=== PATIENT | female | born 1950 | race Caucasian/White ===

== ENCOUNTER 2017-06-17 11:00 | Outpatient (RCR) | payer MEDICARE, OTHER, SELFPAY ==
--- NOTE | 2016-12-23 09:09 | HP.PTEVAL_ITS ---
Patient's Visit Information TIFFANY MCKEON is a 66 year old F referred to Physical Therapy by Out of Town Doctor KRYSTLE FERRERA with a diagnosis of Cervicogenic Headache, occipital neuralgia on L side. Date of Evaluation: 12/20/16 Physical Therapist: Jarrod Palafox - Visit Plan Frequency: 2x /Week Duration: 4 Weeks Plan: Start with DN to L sub occipitals, L cervical paraspinals and L temporalis. gental suboccipital release and L levator scapulea/UT. May trial US to similar areas. Progress gental cervical ROM, AROM as tolerated. - Subjective Subjective: Pt. is here today for her initial evaluation with diagnosis of cervical head aches and occipital neuralgia. She reports having increased symptoms for ~16 months. She had no mechanism of injury. She reports having multiple MRIs on here shoulder and neck. She has had xrays with no reports of injury. She finally ended up at [facility] and was diagnosed with occipital neuralgia and cervicogenic headaches. She reporta having multiple injections into suboccipital region with relief. She has had PT previously, but was focused on restoring cervical motion. She reports increased pain with sleeping, any pressue on L side of temporalis and L suboccipitals, even to the point she is sleeping siting up with R sided lean. She reports increased pain with cervical rotation and most ADLs. She reports relief in symptoms with off loading pressure. She denies changes in vision, and no migrain symptoms, but has a constant MARTIN like pain on L side of head. She is hopeful to reduce symptoms in order to get back to all recreational lifting and activies with increased tolerance. - Pain L side of occiput Pain Intensity (Out of 10): 2 Pain Intensity Range: 2, 6 - Objective POSTURE: Pt. has slight forward head position, rounded shoulders with slight elevation of her shoulders. PALPATION: Pt. has increased tenderness along L side of suboccipital muscles, L levator scapulea, slight increase in symptoms along L UT and tenderness along L temporalis muscle. NEUROLOGICAL: Pt. denies N /T in either UE. Pt. has normal sensation to light and sharp touch throughout bilateral UEs. Pt. has 2+ biceps and tricpes DTR bilaterally. Pt. was negative for upper limp tension testing. ROM: CERVICAL SPINE: flexion min/nil loss mild increase NW, ext min/mod loss mild increase NW, rotation R min/mod loss increase NW on L side, rotation L mod loss increase NW on L side, SB R min/nil loss increase NW, SB L min/nil loss increase NW. Pt. has normal shoulder ROM without increase in symptoms. MMT: Pt. has had a previous R shoulder RTC repair and has 4+/5 generally throughout her R UE strength. Pt. has 5/5 throughout L shoulder throughout without increase in symptoms. - Special Tests C/S Radiculapathy - Left Upper limb tension test: Negative C/S Radiculapathy - Right Upper limb tension test: Negative C/S Radiculapathy - Left Spurlings: Negative C/S Radiculapathy - Right Spurlings: Negative C/S Radiculapathy - Left Cervical distraction: Negative C/S Radiculapathy - Right Cervical distraction: Negative C/S Radiculapathy - Left Relief test: Negative C/S Radiculapathy - Right Relief test: Negative Sharp Justus: Negative Vertebral Artery Test: Negative Alar Ligament Test: Negative Cervical Sitting: Protrusion - Mechanical Response: No effect Cervical Sitting: Protrusion - Symptoms During Testing: No effect Cervical Sitting: Protrusion - Symptoms After Testing: No effect Cervical Sitting: Retraction - Mechanical Response: No effect Cervical Sitting: Retraction - Symptoms During Testing: Increases Cervical Sitting: Retraction - Symptoms After Testing: No worse Cervical Sitting: Retraction-Extension - Mechanical Response: No effect Cerv Sitting: Retraction-Extension - Symptoms During Testing: Increases Cerv Sitting: Retraction-Extension - Symptoms After Testing: No worse Cervical Sitting: Sidebend Right - Mechanical Response: No effect Cervical Sitting: Sidebend Right - Symptoms During Testing: No effect Cervical Sitting: Sidebend Right - Symptoms After Testing: No effect Cervical Sitting: Sidebend Left - Mechanical Response: No effect Cervical Sitting: Sidebend Left - Symptoms During Testing: No effect Cervical Sitting: Sidebend Left - Symptoms After Testing: No effect Cervical Sitting: Rotation Right - Mechanical Response: No effect Cervical Sitting: Rotation Right - Symptoms During Testing: Increases Cervical Sitting: Rotation Right - Symptoms After Testing: No worse Cervical Sitting: Rotation Left - Mechanical Response: No effect Cervical Sitting: Rotation Left - Symptoms During Testing: Increases Cervical Sitting: Rotation Left - Symptoms After Testing: No worse Cervical Sitting: Flexion - Mechanical Response: No effect Cervical Sitting: Flexion - Symptoms During Testing: Increases Cervical Sitting: Flexion - Symptoms After Testing: No worse - Goals Goal 1:: Pt. be I with HEP. Goal Time Frame: 4-6 Weeks Goal 2:: Pt. to have decreased L sided suboccipital and L temporalis symptoms to 0-1/10 pain at rest. Goal Time Frame: 4-6 Weeks Goal 3:: Pt. to have decreased L sided suboccipital and L temporalis symptoms to 0-1/10 pain with full cervical motion. Goal Time Frame: 4-6 Weeks Goal 4:: Pt. to have reduced frequency of MARTIN to 0-1 per week. Goal Time Frame: 4-6 Weeks Goal 5:: Pt. to sleep without increase in symptoms. Goal Time Frame: 4-6 Weeks Goal 6:: Pt. to get back to all recreational activities without increase in symptoms. - Rehabilitation Potential Physical Therapy Diagnosis: Cervicogenic Headache, occipital neuralgia on L side with subsequent increased L sided neck and head pain, cervico hypomobility , decreased tolerance to ADLs and recreational activities. Pt. would benefit from PT to reduce stress to Occipital nerve, increased tolerance to all ADLs, improve tolerance to cervical ROM and to decrease L sided cervical/occipital pain. Rehabilitation Potential: Good - Anticipated Interventions Patient/Client Instruction: Educate patient on: Condition, Plan of Care, Risk Factors, Benefits of Fitness Program For the Purpose of:: To improve safety, To improve health and function, To foster healthy habits, To improve decision making, To facilitate caregiver knowledge, To improve self management, To prevent re-injury, To improve ability to perform tasks related to life management, To improve tolerance to ADL's Therapeutic Exercise to Include: Strength training, Power training, Postural training, Flexibilty training, Active ROM, Maricel Exercises, Scapular Strength /Stabilization For the Purpose of:: To decrease pain, To decrease swelling/inflammation, To increase ROM, To improve nutrient delivery to tissue, To increase oxygenation perfusion, To improve muscle performance and motor function, To improve health of tissue, To decrease soft tissue restriction, To increase flexibility/ROM Manual Therapy Techniques to Include: Mobilization, Passive ROM, Functional dry needling, Soft tissue mobilization For the Purpose of:: To decrease pain, To decrease swelling/inflammation, To increase ROM, To improve nutrient delivery to tissue, To increase oxygenation perfusion, To improve muscle performance and motor function Thermo therapy (hot pack): Yes Ultrasound (thermal/non thermal): Yes For the Purpose of:: To decrease pain, To decrease swelling/inflammation, To increase ROM Thank you for the opportunity to evaluate your patient. For Medicare and Medicare HMO plans, please review the plan of care and approve it. It will need to be FAXED BACK to us at [phone] for Medicare purposes. Please let me know if there are questions or concerns regarding this plan of care. Physician Signature: Date:
--- NOTE | 2017-01-14 15:26 | HP.PTREVAL_ITS ---
Out of Town Doctor, KRYSTLE FERRERA It has been my pleasure to treat TIFFANY MCKEON over the last 8 visits for Cervicogenic Headache, occipital neuralgia on L side. Please see the progress note below for an update on the physical therapy plan of care! Subjective: Pt. reports I am doing okay, but I tweeked my back the other day and it has been giving me some trouble. She reports overall reduced symptoms with her neck, but has regressed a bit after having her low back pain. Objective/Function: ROM- CERVICAL SPINE- flexion min/nil loss, ext min loss ( mild increase NW), Rotation R min loss NE, rotation L min loss mild increase NW. Pt. reports having no pain when waking up in mornings, but has increased symptoms throughout the day. She reports having constant progress and is pleased with progress with PT. Pt. reports now is only having pain at L suboccipital and lateral to occiput. Plan Plan: POC extended x2 for 3-4 weeks to continue to progress with DN, stretching and manual techniques with progresson to postural strengthening as tolerated. She progressing with DN, stretching and manual technqiues, but still has symptoms. Pt. has improved ROM and deccreased pain. Will continue with PT and progressing as tolerated. Goals Goal 1:: Pt. be I with HEP. (pt. is currenlty progress with HEP). Goal Time Frame: 4-6 Weeks Goal Progress: Progressing Goal 2:: Pt. to have decreased L sided suboccipital and L temporalis symptoms to 0-1/10 pain at rest. (pt. reports having 2/10 pain in L side of occpitals this date) Goal Time Frame: 4-6 Weeks Goal Progress: Progressing Goal 3:: Pt. to have decreased L sided suboccipital and L temporalis symptoms to 0-1/10 pain with full cervical motion. (ROM- CERVICAL SPINE- flexion min/nil loss, ext min loss (mild increase NW), Rotation R min loss NE, rotation L min loss mild increase NW.) Goal Time Frame: 4-6 Weeks Goal Progress: Progressing Goal 4:: Pt. to have reduced frequency of MARTIN to 0-1 per week. (pt. reports having 2-3 HAs per week). Goal Time Frame: 4-6 Weeks Goal Progress: Progressing Goal 5:: Pt. to sleep without increase in symptoms. (pt. reports overall reduced pain with sleeping, but cont. to have increased pain that progresses throughout the day.) Goal Time Frame: 4-6 Weeks Goal Progress: Progressing Goal 6:: Pt. to get back to all recreational activities without increase in symptoms. (Pt. reports mild overall decreased pain, but does have limitations and increased symptoms with recreational actvities). Goal Progress: Progressing Anticipated Interventions Patient/Client Instruction: Educate patient on: Condition, Plan of Care, Risk Factors, Benefits of Fitness Program For the Purpose of:: To improve safety, To improve health and function, To foster healthy habits, To improve decision making, To facilitate caregiver knowledge, To improve self management, To prevent re-injury, To improve ability to perform tasks related to life management, To improve tolerance to ADL's Therapeutic Exercise to Include: Strength training, Power training, Postural training, Flexibilty training, Active ROM, Maricel Exercises, Scapular Strength /Stabilization For the Purpose of:: To decrease pain, To decrease swelling/inflammation, To increase ROM, To improve nutrient delivery to tissue, To increase oxygenation perfusion, To improve muscle performance and motor function, To improve health of tissue, To decrease soft tissue restriction, To increase flexibility/ROM Manual Therapy Techniques to Include: Mobilization, Passive ROM, Functional dry needling, Soft tissue mobilization For the Purpose of:: To decrease pain, To decrease swelling/inflammation, To increase ROM, To improve nutrient delivery to tissue, To increase oxygenation perfusion, To improve muscle performance and motor function Thermo therapy (hot pack): Yes Ultrasound (thermal/non thermal): Yes For the Purpose of:: To decrease pain, To decrease swelling/inflammation, To increase ROM Please do not hesitate to contact me at [phone] by phone or Fax: if you have questions or concerns regarding this new plan of care! Sincerely, Jarrod Palafox
--- NOTE | 2017-02-04 11:38 | HP.PTDS(2)_ITS ---
HP - PT D/C Summary (2) It has been my pleasure to treat TIFFANY MCKEON under orders from Out of Town Doctor, KRYSTLE FERRERA for the diagnosis of R sided sciatica for a total of 5 visit(s). Discharge Date: 02/04/17 Please see the following information for a summary of their discharge status. - Subjective Subjective: Pt. reports my back is all better. She reports being 100% better and is no longer having any pain in her low back. She is back to her gym workout without issues. - Overall Improvement % Improvement: 100 - Objective Objective/Function/Assessment: ROM- Pt. has full ROM of lumbar spine without increase in symptoms. MMT- Pt. has fair- core strength. RLE- 5/5 throughout, except 4+/5 hip abd and flexion. LLE-- 5/5 throughout, except 4+/5 hip flexion and abduction. Pt. has no pain with gait or stair negotiation. - Goals Patient Goals: Improve Mobility, Improve Function, Walk Normal, Improve ROM, Sleep Normal Goal 1:: Pt. to be I with HEP. (pt. is currently independent with HEP for gym/ core exercises) Goal Progress: Goal Met Goal 2:: Pt. to have decreased symptoms to 0/10 at rest. (pt. reports having 0/ 10 pain at rest). Goal Progress: Goal Met Goal 3:: Pt. to have 0/10 pain with all walking and recreational activities. ( pt. reports having 0/10 pain with all walking and gym recreational activities). Goal Progress: Goal Met Goal 4:: Pt. to have increased BLE and core strength by 1/2 grade to reduce stress applied to lumbar spine with all functional mobility. (MMT- Pt. has fair - core strength. RLE- 5/5 throughout, except 4+/5 hip abd and flexion. LLE-- 5/ 5 throughout, except 4+/5 hip flexion and abduction.) Goal Progress: Goal Met Goal 5:: Pt. to have full lumbar ROM without increase in symptoms. (ROM- Pt. has full ROM of lumbar spine without increase in symptoms.) Goal Progress: Goal Met Goal 6:: Pt. to complete all recreational activities and ADLs without increase in lumbar spine. (pt. is able to complete all her recreational activities and ADLS with symptoms). Goal Progress: Goal Met - Plan Plan: Pt. will be DC from PT to gym exercises for core strengthening at this point in time. - D/C Information Discharge Comments: Pt. progressed with core strengthening exercises and initial modalities to reduce her symptoms. She is back to all gym core strengthening and recreational activities without issues. She reports being 100 % better overall and will be DC from PT to her current exercise program. If there are questions or concerns regarding this patient's physical therapy, please feel free to call me at [phone]. Thank you for the referral of this patient. Sincerely, Jarrod Palafox
--- NOTE | 2017-02-13 12:30 | HP.PTREVAL_ITS ---
Out of [facility] Doctor, KRYSTLE FERRERA It has been my pleasure to treat TIFFANY MCKEON over the last 16 visits for Cervicogenic Headache, occipital neuralgia on L side. Please see the progress note below for an update on the physical therapy plan of care! Subjective: Pt. reports I was pretty sore this weekend. I am not as bad as I was, but was more sore than previously. Pt. reports being 75% better overall. Pt. reports being HEP compliant. Objective/Function: CERVICAL ROM- flexion nil loss NE, ext min loss NE, rotation R min/nil los NE, rotation L min/mod loss increase NW on L side. Pt. is no longer having pain on the L side of her occipital region, has mild pain at L side of cervical spine and UT. Pt. is progressing with ROM, DN and strengthening. Plan Plan: Pt. has had overall reduction in occipital pain, but is having lingering pain throughout the L side of her cervical spine and into her L UT region. He has close to prior level of cervical ROM, except is limited with rotation to her L, but has also improved. Pt. would like to continue weaning from DN with use of traction and restoring her cervical ROM. POC extended x1-2 per week for 2 weeks, weaning to x1 per week for another 2 weeks. Goals Goal 1:: Pt. be I with HEP. (pt. is currenlty progress with HEP). Goal Time Frame: 4-6 Weeks Goal Progress: Progressing Goal 2:: Pt. to have decreased L sided suboccipital and L temporalis symptoms to 0-1/10 pain at rest. (pt. reports having 2/10 pain in L side cervical spine) Goal Time Frame: 4-6 Weeks Goal Progress: Progressing Goal 3:: Pt. to have decreased L sided suboccipital and L temporalis symptoms to 0-1/10 pain with full cervical motion. (ROM- CERVICAL SPINE- flexion nil loss NE, ext min loss NE, rotation R min/nil los NE, rotation L min/mod loss increase NW on L side.) Goal Time Frame: 4-6 Weeks Goal Progress: Progressing Goal 4:: Pt. to have reduced frequency of MARTIN to 0-1 per week. (pt. reports having 1-2 HAs per week). Goal Time Frame: 4-6 Weeks Goal Progress: Progressing Goal 5:: Pt. to sleep without increase in symptoms. (Pt. reports she is no longer having pain with sleeping) Goal Time Frame: 4-6 Weeks Goal Progress: Goal Met Goal 6:: Pt. to get back to all recreational activities without increase in symptoms. (Pt. reports mild overall decreased pain, but does have limitations and increased symptoms with recreational actvities). Goal Progress: Progressing Anticipated Interventions Patient/Client Instruction: Educate patient on: Condition, Plan of Care, Risk Factors, Benefits of Fitness Program For the Purpose of:: To improve safety, To improve health and function, To foster healthy habits, To improve decision making, To facilitate caregiver knowledge, To improve self management, To prevent re-injury, To improve ability to perform tasks related to life management, To improve tolerance to ADL's Therapeutic Exercise to Include: Strength training, Power training, Postural training, Flexibilty training, Active ROM, Maricel Exercises, Scapular Strength /Stabilization For the Purpose of:: To decrease pain, To decrease swelling/inflammation, To increase ROM, To improve nutrient delivery to tissue, To increase oxygenation perfusion, To improve muscle performance and motor function, To improve health of tissue, To decrease soft tissue restriction, To increase flexibility/ROM Manual Therapy Techniques to Include: Mobilization, Passive ROM, Functional dry needling, Soft tissue mobilization For the Purpose of:: To decrease pain, To decrease swelling/inflammation, To increase ROM, To improve nutrient delivery to tissue, To increase oxygenation perfusion, To improve muscle performance and motor function Thermo therapy (hot pack): Yes Ultrasound (thermal/non thermal): Yes For the Purpose of:: To decrease pain, To decrease swelling/inflammation, To increase ROM Please do not hesitate to contact me at [phone] by phone or Fax: if you have questions or concerns regarding this new plan of care! Sincerely, Jarrod Palafox
--- NOTE | 2017-03-07 09:50 | HP.PTREVAL_ITS ---
Out of Town Doctor, KRYSTLE FERRERA It has been my pleasure to treat TIFFANY MCKEON over the last 22 visits for Cervicogenic Headache, occipital neuralgia on L side. Please see the progress note below for an update on the physical therapy plan of care! Subjective: Pt. reports I am getting better, I am able to do a lot more, but I am still getting pain with rotation to the left side. He reports being HEP compliant without adverse reaction. Pt. reports being 85% better overall, If I could just get more rotation in my neck I woule be great. Objective/Function: Pt. is no longer having any pain in the L side of her suboccipital region, but has increased pulling pain with cervical rotation to the L. ROM-CERVICAL SPINE- flexion nil loss NE, ext min loss NE, rotation R min /nil los NE, rotation L min loss increase NW on L side. Slight improvement with rotation to L side. Adding in joint mobs to assist with rotation. Plan Plan: POC extended x1-2 per week for 2-3 weeks with focus on increased lower cervical joint mobility and decreasing symptoms with cervical mobility ( espcially with rotation to L side). Goals Goal 1:: Pt. be I with HEP. (pt. is currenlty progress with HEP). Goal Time Frame: 4-6 Weeks Goal Progress: Progressing Goal 2:: Pt. to have decreased L sided suboccipital and L temporalis symptoms to 0-1/10 pain at rest. (pt. reports having 2/10 pain in L side cervical spine with cervical rotation to L side, no longer having pain at sub occipital region) Goal Time Frame: 4-6 Weeks Goal Progress: Progressing Goal 3:: Pt. to have decreased L sided suboccipital and L temporalis symptoms to 0-1/10 pain with full cervical motion. (ROM- CERVICAL SPINE- flexion nil loss NE, ext min loss NE, rotation R min/nil los NE, rotation L min loss increase NW on L side.) Goal Time Frame: 4-6 Weeks Goal Progress: Progressing Goal 4:: Pt. to have reduced frequency of MARTIN to 0-1 per week. (pt. reports having 1 HAs per week). Goal Time Frame: 4-6 Weeks Goal Progress: Goal Met Goal 5:: Pt. to sleep without increase in symptoms. (Pt. reports she is no longer having pain with sleeping) Goal Time Frame: 4-6 Weeks Goal Progress: Goal Met Goal 6:: Pt. to get back to all recreational activities without increase in symptoms. (Pt. reports mild overall decreased pain, but does have limitations and increased symptoms with recreational actvities). Goal Progress: Progressing Anticipated Interventions Patient/Client Instruction: Educate patient on: Condition, Plan of Care, Risk Factors, Benefits of Fitness Program For the Purpose of:: To improve safety, To improve health and function, To foster healthy habits, To improve decision making, To facilitate caregiver knowledge, To improve self management, To prevent re-injury, To improve ability to perform tasks related to life management, To improve tolerance to ADL's Therapeutic Exercise to Include: Strength training, Power training, Postural training, Flexibilty training, Active ROM, Maricel Exercises, Scapular Strength /Stabilization For the Purpose of:: To decrease pain, To decrease swelling/inflammation, To increase ROM, To improve nutrient delivery to tissue, To increase oxygenation perfusion, To improve muscle performance and motor function, To improve health of tissue, To decrease soft tissue restriction, To increase flexibility/ROM Manual Therapy Techniques to Include: Mobilization, Passive ROM, Functional dry needling, Soft tissue mobilization For the Purpose of:: To decrease pain, To decrease swelling/inflammation, To increase ROM, To improve nutrient delivery to tissue, To increase oxygenation perfusion, To improve muscle performance and motor function Thermo therapy (hot pack): Yes Ultrasound (thermal/non thermal): Yes For the Purpose of:: To decrease pain, To decrease swelling/inflammation, To increase ROM Please do not hesitate to contact me at [phone] by phone or Fax: if you have questions or concerns regarding this new plan of care! Sincerely, Jarrod Palafox
--- NOTE | 2017-04-10 11:38 | HP.PTREVAL ---
Out of [facility] Doctor, KRYSTLE FERRERA It has been my pleasure to treat TIFFANY MCKEON over the last 29 visits for Cervicogenic Headache, occipital neuralgia on L side. Please see the progress note below for an update on the physical therapy plan of care! 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 Pt. reports having no issues after first day, but increased symptoms after second then reports greater soreness today. Objective/Function: Reduced symptoms post PT this date. Pt. to come back next week to determine if symptoms calm down after slowing work week this week. Pt. consents. Plan Plan: POC extended x1-2 per week for 2-3 weeks with focus on increased lower cervical joint mobility and decreasing symptoms with cervical mobility (espcially with rotation to L side). Goals Goal 1:: Pt. be I with HEP. (pt. is deidrey progress with HEP). Goal Time Frame: 4-6 Weeks Goal Progress: Progressing Goal 2:: Pt. to have decreased L sided suboccipital and L temporalis symptoms to 0-1/10 pain at rest. (pt. reports having 2/10 pain in L side cervical spine with cervical rotation to L side, no longer having pain at sub occipital region) Goal Time Frame: 4-6 Weeks Goal Progress: Progressing Goal 3:: Pt. to have decreased L sided suboccipital and L temporalis symptoms to 0-1/10 pain with full cervical motion. (ROM- CERVICAL SPINE- flexion nil loss NE, ext min loss NE, rotation R min/nil los NE, rotation L min loss increase NW on L side.) Goal Time Frame: 4-6 Weeks Goal Progress: Progressing Goal 4:: Pt. to have reduced frequency of MARTIN to 0-1 per week. (pt. reports having 1 HAs per week). Goal Time Frame: 4-6 Weeks Goal Progress: Goal Met Goal 5:: Pt. to sleep without increase in symptoms. (Pt. reports she is no longer having pain with sleeping) Goal Time Frame: 4-6 Weeks Goal Progress: Goal Met Goal 6:: Pt. to get back to all recreational activities without increase in symptoms. (Pt. reports mild overall decreased pain, but does have limitations and increased symptoms with recreational actvities). Goal Progress: Progressing Anticipated Interventions Patient/Client Instruction: Educate patient on: Condition, Plan of Care, Risk Factors, Benefits of Fitness Program For the Purpose of:: To improve safety, To improve health and function, To foster healthy habits, To improve decision making, To facilitate caregiver knowledge, To improve self management, To prevent re-injury, To improve ability to perform tasks related to life management, To improve tolerance to ADL's Therapeutic Exercise to Include: Strength training, Power training, Postural training, Flexibilty training, Active ROM, Maricel Exercises, Scapular Strength/Stabilization For the Purpose of:: To decrease pain, To decrease swelling/inflammation, To increase ROM, To improve nutrient delivery to tissue, To increase oxygenation perfusion, To improve muscle performance and motor function, To improve health of tissue, To decrease soft tissue restriction, To increase flexibility/ROM Manual Therapy Techniques to Include: Mobilization, Passive ROM, Functional dry needling, Soft tissue mobilization For the Purpose of:: To decrease pain, To decrease swelling/inflammation, To increase ROM, To improve nutrient delivery to tissue, To increase oxygenation perfusion, To improve muscle performance and motor function Thermo therapy (hot pack): Yes Ultrasound (thermal/non thermal): Yes For the Purpose of:: To decrease pain, To decrease swelling/inflammation, To increase ROM Please do not hesitate to contact me at [phone] by phone or if you have questions or concerns regarding this new plan of care! Sincerely, Jarrod Palafox
--- NOTE | 2017-05-30 12:58 | HP.PTREVAL ---
Out of [facility] Doctor, KRYSTLE FERRERA It has been my pleasure to treat TIFFANY MCKEON over the last 34 visits for Cervicogenic Headache, occipital neuralgia on L side. Please see the progress note below for an update on the physical therapy plan of care! Subjective: Pt. reports I was on prednisone again and was feeling great. I still have that pain at the base of my skull, but only when I turn my head. She is to follow up with physician on Saturday 06/02. Pt. is pleased with progress, but want to follow up after seeing physician. Objective/Function: Pt. continues to have made gains with PT. She does have slight min/mod limitation with cervical rotation to L side with increased pain. Pt. has overall decreased symptoms and is tolerating most ADLs and gym exercises. Pt. to follow up with physician early next week. Plan Plan: POC extended x1-2 per week for 2-3 weeks with focus on increased lower cervical joint mobility and decreasing symptoms with cervical mobility (espcially with rotation to L side). Goals Goal 1:: Pt. be I with HEP. (pt. is currenlty progress with HEP). Goal Time Frame: 4-6 Weeks Goal Progress: Progressing Goal 2:: Pt. to have decreased L sided suboccipital and L temporalis symptoms to 0-1/10 pain at rest. (pt. reports having 2/10 pain in L side cervical spine with cervical rotation to L side, no longer having pain at sub occipital region) Goal Time Frame: 4-6 Weeks Goal Progress: Progressing Goal 3:: Pt. to have decreased L sided suboccipital and L temporalis symptoms to 0-1/10 pain with full cervical motion. (ROM- CERVICAL SPINE- flexion nil loss NE, ext min loss NE, rotation R min/nil los NE, rotation L min loss increase NW on L side.) Goal Time Frame: 4-6 Weeks Goal Progress: Progressing Goal 4:: Pt. to have reduced frequency of MARTIN to 0-1 per week. (pt. reports having 1 HAs per week). Goal Time Frame: 4-6 Weeks Goal Progress: Goal Met Goal 5:: Pt. to sleep without increase in symptoms. (Pt. reports she is no longer having pain with sleeping) Goal Time Frame: 4-6 Weeks Goal Progress: Goal Met Goal 6:: Pt. to get back to all recreational activities without increase in symptoms. (Pt. reports mild overall decreased pain, but does have limitations and increased symptoms with recreational actvities). Goal Progress: Progressing Anticipated Interventions Patient/Client Instruction: Educate patient on: Condition, Plan of Care, Risk Factors, Benefits of Fitness Program For the Purpose of:: To improve safety, To improve health and function, To foster healthy habits, To improve decision making, To facilitate caregiver knowledge, To improve self management, To prevent re-injury, To improve ability to perform tasks related to life management, To improve tolerance to ADL's Therapeutic Exercise to Include: Strength training, Power training, Postural training, Flexibilty training, Active ROM, Maricel Exercises, Scapular Strength/Stabilization For the Purpose of:: To decrease pain, To decrease swelling/inflammation, To increase ROM, To improve nutrient delivery to tissue, To increase oxygenation perfusion, To improve muscle performance and motor function, To improve health of tissue, To decrease soft tissue restriction, To increase flexibility/ROM Manual Therapy Techniques to Include: Mobilization, Passive ROM, Functional dry needling, Soft tissue mobilization For the Purpose of:: To decrease pain, To decrease swelling/inflammation, To increase ROM, To improve nutrient delivery to tissue, To increase oxygenation perfusion, To improve muscle performance and motor function Thermo therapy (hot pack): Yes Ultrasound (thermal/non thermal): Yes For the Purpose of:: To decrease pain, To decrease swelling/inflammation, To increase ROM Please do not hesitate to contact me at [phone] by phone or if you have questions or concerns regarding this new plan of care! Sincerely, Jarrod Palafox
== END 2017-06-17 11:30 | disposition home or self-care (01) ==
LOC: PT 11:00
DX: M54.31 Sciatica, right side (principal); M54.81 Occipital neuralgia; M53.0 Cervicocranial syndrome
CPT/HCPCS: 97012; 97035; 97110; 97140; 97161; 97530; G8978; G8979; G8980; G8981; G8982

== ENCOUNTER 2018-02-10 08:30 | Outpatient (RCR) | payer MEDICARE, OTHER, SELFPAY ==
--- NOTE | 2017-12-16 08:01 | HP.PTREVAL_ITS ---
DUY CARCAMO, It has been my pleasure to treat TIFFANY MCKEON over the last 58 visits for occipital neuralgia. Please see the progress note below for an update on the physical therapy plan of care! Subjective: Pt. reports I was sore after the massage I got. Pt. reports seeing her physician who wants her to continue to reduce her muscle tension. Pt. did get injections again with better results. Objective/Function: Pt. tolerated all Pt without adverse reaction. Pt. did receive another scrip from her physician to continue with PT and focus on decreasing her L sided muscle tone with modalities including DN as needed. She continues to have decreased rotation to L side. Pt. is progressing, but slowly. Plan Plan: POC extended for 4 more visits x1 per week to reduce symptoms. Goals Goal 1:: Pt. to have decreased L sided suboccipital and L temporalis symptoms to 0-1/10 pain at rest. Goal Time Frame: 2-4 Weeks Goal Progress: Progressing Goal 2:: Pt. to have decreased L sided suboccipital and L temporalis symptoms to 0-1/10 pain with full cervical motion. Goal Time Frame: 2-4 Weeks Goal Progress: Progressing Goal 3:: Pt. to get back to all recreational activities without increase in symptoms. Goal Time Frame: 2-4 Weeks Goal Progress: Goal Met Anticipated Interventions Please do not hesitate to contact me at [phone] by phone or Fax: if you have questions or concerns regarding this new plan of care! Sincerely, Jarrod Palafox
== END 2018-02-10 19:00 | disposition home or self-care (01) ==
LOC: PT 08:30
DX: M53.0 Cervicocranial syndrome (principal); M54.81 Occipital neuralgia; R51 Headache
CPT/HCPCS: 97110; 97140

== ENCOUNTER 2018-06-10 12:00 | Outpatient (RCR) | payer MEDICARE, OTHER, SELFPAY | END 2018-06-10 19:00 | disposition home or self-care (01) | LOC: PT 12:00 | DX: M54.81 Occipital neuralgia (principal); R51 Headache; M53.0 Cervicocranial syndrome ==

== ENCOUNTER 2018-11-17 10:00 | Outpatient (RCR) | payer MEDICARE, OTHER, SELFPAY ==
--- NOTE | 2018-09-14 14:48 | HP.PTREVAL_ITS ---
Francisco Golden PA-C, It has been my pleasure to treat TIFFANY MCKEON over the last 10 visits for L knee OA. Please see the progress note below for an update on the physical therapy plan of care! Subjective: Pt. continues to progress. She reports being 85% better overall. Pt. reports being HEP compliant. Objective/Function: Pt. has full knee ext ROM on L side. Pt. has 122 deg of flexion with stiffness being her limiting factor. Pt. reports she is back to some gym exericses, but not fully. She is walking with minimal issues. She denies N/T. MMT: LLE- ankle 5/5 throughout; knee- ext 4+/5, flexion 5-/5; hip- flexion 4+/5, abd 4+/5m ext 4+/5. Core strength fair. GAIT: pt. has improved pattern, but does have decreased kne flexiono during swing phase. Pt. reports no pain with ambulation, unless I take a bad step. Pt. does have some mild increase in soreness with descending steps. Plan Plan: Cont. wtih POC fopr 2 more visits progressing to HEP. Goals Goal 1:: Pt. to be I with HEP. Goal Time Frame: 4-6 Weeks Goal Progress: Progressing Goal 2:: Pt. to have increased L knee ROM to 0-0-120deg without increase in symptoms. Goal Time Frame: 4-6 Weeks Goal Progress: Goal Met Goal 3:: Pt. to have incrased L knee strength by 1/2 grade of all effected musculature. Goal Time Frame: 4-6 Weeks Goal Progress: Progressing Goal 4:: Pt. to ambulate without increase in symptoms with normal gait pattern. Goal Time Frame: 4-6 Weeks Goal Progress: Progressing Goal 5:: Pt. to negotiate steps with reciprocal pattern with 1 HR withotu increase in symptoms. Goal Time Frame: 4-6 Weeks Goal Progress: Progressing Goal 6:: Pt. to resume all gym exercises without increase in symptoms. Goal Progress: Progressing Anticipated Interventions Patient/Client Instruction: Educate patient on: Condition, Plan of Care, Risk Factors, Benefits of Fitness Program For the Purpose of:: To improve health and function, To foster healthy habits, To facilitate caregiver knowledge, To improve self management, To prevent re- injury, To improve ability to perform tasks related to life management, To improve tolerance to ADL's Therapeutic Exercise to Include: Strength training, Power training, Endurance training, Balance training, Postural training, Flexibilty training, Gait and locomotor training, Passive ROM, Active ROM, Dynamic Lumbar Stabilization For the Purpose of:: To decrease pain, To decrease swelling/inflammation, To increase ROM, To improve nutrient delivery to tissue, To increase oxygenation perfusion, To improve performance and independence with ADL's, To decrease level of supervision to perform tasks, To improve ability of physical actions for home/community/work/leisure, To improve gait and locomotor functions Please do not hesitate to contact me at [phone] by phone or if you have questions or concerns regarding this new plan of care! Sincerely, Jarrod Palafox DPT
--- NOTE | 2018-09-14 14:48 | HP.PTEVAL_ITS ---
Patient's Visit Information TIFFANY MCKEON is a 67 year old F referred to Physical Therapy by Francisco Golden PA-C with a diagnosis of L knee OA. Date of Evaluation: 06/10/18 Physical Therapist: Jarrod Palafox DPT - Visit Plan Frequency: 2x /Week Duration: 4-6 Weeks Plan: Cont. wtih POC fopr 2 more visits progressing to HEP. - Subjective Findings: Pt. is here today for her initial evaluation with diagnosis of L knee OA. Pt. reports hurting her knee after at neuro doctor office. Pt. reports getting up with increased pain, but no other mechanism of injury. Pt. denies N/T in either LEs. Pt. reports increased pain with attempting to straighten her leg, walking and standing. Pt. reports no pain with sitting, but does report increased stiffness. Pt. is hopeful to reduce symptoms in order to get back to all recreational activities without limitations. - Pain L knee Pain Intensity (Out of 10): 0 Pain Intensity Range: 1, 6 - Objective POSTURE: Pt. lacks TKE on L side in stnace. Pt. has incraesed R lateral lean. PALAPTION: Pt. has incrased pain at medial aspect of L knee joint line. Pt. has increased pain at posterior aspect as well. NEURO: normal throughout. ROM: R knee- 0-0-131deg. L knee 0-5-121deg. PT. has tight HS, but rest of BLEs is normal. MMT: RLE- 5/5 throughout, except 4/5 throughout hip musculature. LLE- ankle 5/5 throughout; knee- ext 4/5, flexion 4+/5; hip- 4/5 throughout. GAIT: Pt. has decreased stance time on LLE. Pt. lacks TKE on LLE during stance phase and has reduced L knee flexion during swing phase. STAIRS: no isues with ascending, decreased knee flexion and control with decending. - Goals Goal 1:: Pt. to be I with HEP. Goal Time Frame: 4-6 Weeks Goal 2:: Pt. to have increased L knee ROM to 0-0-120deg without increase in symptoms. Goal Time Frame: 4-6 Weeks Goal 3:: Pt. to have incrased L knee strength by 1/2 grade of all effected musculature. Goal Time Frame: 4-6 Weeks Goal 4:: Pt. to ambulate without increase in symptoms with normal gait pattern. Goal Time Frame: 4-6 Weeks Goal 5:: Pt. to negotiate steps with reciprocal pattern with 1 HR withotu increase in symptoms. Goal Time Frame: 4-6 Weeks Goal 6:: Pt. to resume all gym exercises without increase in symptoms. - Rehabilitation Potential Physical Therapy Diagnosis: Pt. has signs and symptoms consistent with L knee OA. Rehabilitation Potential: Good - Anticipated Interventions Patient/Client Instruction: Educate patient on: Condition, Plan of Care, Risk Factors, Benefits of Fitness Program For the Purpose of:: To improve health and function, To foster healthy habits, To facilitate caregiver knowledge, To improve self management, To prevent re- injury, To improve ability to perform tasks related to life management, To improve tolerance to ADL's Therapeutic Exercise to Include: Strength training, Power training, Endurance training, Balance training, Postural training, Flexibilty training, Gait and locomotor training, Passive ROM, Active ROM, Dynamic Lumbar Stabilization For the Purpose of:: To decrease pain, To decrease swelling/inflammation, To increase ROM, To improve nutrient delivery to tissue, To increase oxygenation perfusion, To improve performance and independence with ADL's, To decrease level of supervision to perform tasks, To improve ability of physical actions for home/community/work/leisure, To improve gait and locomotor functions Thank you for the opportunity to evaluate your patient. For Medicare and Medicare HMO plans, please review the plan of care and approve it. It will need to be FAXED BACK to us at [phone] for Medicare purposes. For Medicare only, by signing this I certify the plan of care. Please let me know if there are questions or concerns regarding this plan of care. Physician Signature: Date:
--- NOTE | 2018-09-14 14:58 | HP.PTDCSUM ---
HP - PT D/C Summary It has been my pleasure to treat TIFFANY MCKEON under orders from Francisco Golden PA-C, for the diagnosis of L knee OA for a total of 12 visit(s). Discharge Date: 07/21/18 Please see the following information for a summary of their discharge status. - Subjective Subjective: Pt. continues to progress. She reports being 85% better overall. Pt. reports being HEP compliant. - Pain L knee Pain Intensity (Out of 10): 0 - Overall Improvement % Improvement: 95 - Objective Objective/Function: Pt. has full knee ext ROM on L side. Pt. has 122 deg of flexion with stiffness being her limiting factor. Pt. reports she is back to some gym exericses, but not fully. She is walking with minimal issues. She denies N/T. MMT: LLE- ankle 5/5 throughout; knee- ext 4+/5, flexion 5-/5; hip- flexion 4+/5, abd 4+/5m ext 4+/5. Core strength fair. GAIT: pt. has improved pattern, but does have decreased kne flexiono during swing phase. Pt. reports no pain with ambulation, unless I take a bad step. Pt. does have some mild increase in soreness with descending steps. - Goals Goal 1:: Pt. to be I with HEP. Goal Progress: Progressing Goal 2:: Pt. to have increased L knee ROM to 0-0-120deg without increase in symptoms. Goal Progress: Goal Met Goal 3:: Pt. to have incrased L knee strength by 1/2 grade of all effected musculature. Goal Progress: Progressing Goal 4:: Pt. to ambulate without increase in symptoms with normal gait pattern. Goal Progress: Progressing Goal 5:: Pt. to negotiate steps with reciprocal pattern with 1 HR withotu increase in symptoms. Goal Progress: Progressing Goal 6:: Pt. to resume all gym exercises without increase in symptoms. Goal Progress: Progressing - Plan Plan: Cont. wtih POC fopr 2 more visits progressing to HEP. - D/C Information Discharge Comments: Pt. was treated for her L knee OA. Pt. was treated with ROM and strengthening exercises. Pt. made great progress with stability and LLE strengthening. Pt. is back to gym exercises without limitations. Pt. has a solid exercise program and will be DC from PT at this point in time. If there are questions or concerns regarding this patient's physical therapy, please feel free to call me at [phone]. Thank you for the referral of this patient. Sincerely, FINA RodríguezT
== END 2018-11-17 19:00 | disposition home or self-care (01) ==
LOC: PT 10:00
PROVIDERS: Visit Provider Physician Assistant
DX: M17.12 Unilateral primary osteoarthritis, left knee (principal)
CPT/HCPCS: 97110; 97161

== ENCOUNTER 2019-02-16 10:00 | Outpatient (RCR) | payer MEDICARE, OTHER, SELFPAY | END 2019-02-16 19:00 | disposition home or self-care (01) | LOC: PT 10:00 | DX: M17.12 Unilateral primary osteoarthritis, left knee (principal) ==

== ENCOUNTER 2019-08-10 10:00 | Outpatient (RCR) | payer MEDICARE, OTHER, SELFPAY | END 2019-08-10 19:00 | disposition home or self-care (01) | LOC: PT 10:00 | DX: M54.81 Occipital neuralgia (principal); M53.0 Cervicocranial syndrome | CPT/HCPCS: 97140 ==

== ENCOUNTER 2020-02-15 11:30 | Outpatient (RCR) | payer MEDICARE, OTHER, SELFPAY | END 2020-02-15 19:00 | disposition home or self-care (01) | LOC: PT 11:30 | DX: M54.81 Occipital neuralgia (principal); M53.0 Cervicocranial syndrome ==

== ENCOUNTER 2020-03-22 09:47 | Outpatient (RCR) | payer MEDICARE, OTHER, SELFPAY ==
[2020-03-21 10:27] VITALS: BMI 24.9
== END 2020-03-22 19:00 | disposition home or self-care (01) ==
LOC: PT 09:47
PROVIDERS: PCP Internal Medicine
DX: M54.81 Occipital neuralgia (principal); M53.0 Cervicocranial syndrome

== ENCOUNTER → 2020-04-03 08:40 | Outpatient (CLI) | payer MEDICARE, OTHER, SELFPAY ==
[2020-03-21 10:27] VITALS: BMI 24.9
[2020-04-03] VITALS (8 sets, daily range): BP systolic 106–143; BP diastolic 49–73; PULSE 88–97; RESP 14–24; TEMP 37.1; O2SAT 92–98; BMI 25.0
--- NOTE | 2020-04-03 | IMM_PTH ---
PATIENT: TIFFANY MCKEON LOC: CT U#:[id number] AGE/SX: 74/F ROOM: RE04/03/[address]: Dr. Rachna Ma MD : [id number] BED: DIS: SPEC #: [id number] RECD: 04/04/20 13:22 STATUS: ZOFIA REQ #: [id number] ANTOINE: 04/03/20 00:[address]: Rachna Ma DEPT: IMMUNOHISTOCHEMISTRY RECD BY: Ruby Pierre ENTERED: 04/04/20 13:24 SP TYPE: IMMUNO OTHR DR: Dr. Michelle Cummins DO Tissues: B - Bone marrow of iliac crest Procedures: BCL-2 (add) BCL-6 (add) CD10 (add) CD20 (add) CD23 (add) CD43 (add) CD45 (add) CD5 (add) CD79A (add) CYCLIN (add) KI-67 (add) CD3 (initial) PHYSICIAN & [address] [address] SPECIMEN INFORMATION: Tissue Source: B - Bone marrow biopsy, clot Clinical Info: Massive splenomegaly Specimen Number: [id number] CPT code: 98371, 46142 x11 METHODOLOGY: Deparaffinized sections of prefer/formalin-fixed tissue or PAP/DQ stained slides are incubated with monoclonal/polyclonal antibodies/oligonucleotide probes. Localization is made via biotin free immunoperoxidase method. Appropriate controls are performed and reacted as expected. Results on target cell population are indicated in the following table: RESULTS: ANTIBODY / CLONE RESULT Block B CD3 (PS1) negative CD5 (SP10) positive CD10 (56C6) negative CD20 (L26) positive CD23 (1B12) negative CD43 (L60) negative CD45 (RP2/18) positive CD79a (11E3) positive BCL-2 (bcl-2/100/D5) positive BCL-6 ([id number]/A8) negative Cyclin D1/BCL-1 (SP4) positive Ki-67 (30-9) positive, low These tests were developed and their performance characteristics determined by [facility]. They may not have been cleared or approved by the U.S. Food and Drug Administration. The FDA has determined that such clearance or approval is not necessary. The above immunohistochemical/dualISH markers are ordered and reviewed by the Pathologist. INTERPRETATION: B. 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 SJ:chetan 04/05/20 Case has been reviewed in consultation with Dr. Valdovinos who concurs with the above diagnosis. IDC:AM
--- NOTE | 2020-04-03 | BMB_PTH ---
PATIENT: TIFFANY MCKEON LOC: [place] U#:[id number] AGE/SX: 74/F ROOM: RE04/03/[address]: Dr. Rahcna Ma MD : 1950 BED: DIS: SPEC #: [id number] RECD: 04/03/20 13:17 STATUS: ZOFIA REAshley #: [id number] ANTOINE: 04/03/20 00:[address]: Rachna Ma DEPT: BONE MARROW RECD BY: Franco Noyola ENTERED: 04/03/20 13:19 SP TYPE: BMB OBDULIO DR: Dr. Michelle Cummins DO Tissues: A - Bone marrow, NOS B - Bone marrow, NOS C - Bone marrow, NOS Procedures: Bone Marrow Aspiration Bone Marrow Core Biopsy Iron Stain Bone Marrow HEADER OPERATION: Bone marrow biopsy and aspiration PRE-OP DIAGNOSIS: Massive splenomegaly TISSUE SUBMITTED: A - Core, B - Clot, C - Smears, and send outs (flow and CLL FISH) BONE MARROW DIAGNOSIS Right hip bone marrow core, clot and aspirate smears: Consistent with involvement by non-Hodgkin B-cell lymphoma, mantle cell lymphoma. Iron - absent. Flow cytometry study from [facility] shows CD5 positive, CD23 positive, FMC7 positive B cell lymphoproliferative disorder. The complete report is viewable in patient's EMR. Cytogenetic studies are pending at this time. See comment. SJ:chetan 04/06/20 COMMENT The bone marrow core biopsy specimen does not show any bony tissue or hematopoietic cells. Clinical correlation and appropriate follow up are necessary. Immunohistochemistry ([id number]) supports the above diagnosis. Case has been reviewed in consultation with Dr. Valdovinos who concurs with the above diagnosis. IDC:AM BONE MARROW STUDY Slides are reviewed. CBC DATE: 04/03/20 WBC 26.9; RBC 4.74; HGB 11.8; HCT 39.6; MCV 83.5; RDW 16.1; PLTS 156,000 SEGS 11.4%; LYMPHS 79.3%; MONOS 8.6%; EOS 0.3%; BASOS 0.3% PERIPHERAL SMEAR: Submitted. RBC: Normocytic and normochromic. WBC: Leukocytosis and absolute lymphocytosis. The WBC count is compatible to as reported above. PLTS: Adequate. BONE MARROW ASPIRATE DIFFERENTIAL: 200 cell count. Blasts % (normal 0-2):1 Promyelocytes % (normal 1-5): 3 Myelocytes and metamyelocytes % (normal 17-41): 12 Bands and Segs % (normal 15-32): 11 Eos % (normal 1-6): 2 Basos % (normal 0-1): 0 Monocytes % (normal 0-4): 0 Erythroid Precursors % (normal 17-35): 11 Lymphocytes % (normal 7-13): 58 Plasma Cells % (normal 0-2): 2 ASPIRATE FINDINGS: Site: Right hip Paucispicular, Cellular M/E ratio: 2.5 (Normal 1.5-4.0) Megakaryocytes: Present and normal morphology. Erythropoiesis: Normoblastic. Granulopoiesis: Progressive and unremarkable. Comment: Increased number of small lymphocytes are noted. CORE BIOPSY FINDINGS: Site: Right hip Comment: No bony tissue is identified. No hematopoietic elements are seen. ASPIRATE CLOT FINDINGS: Site: Right hip Marrow particles: Numerous Cellularity: 50% M/E ratio: Within normal limits. Megakaryocytes: Present and adequate in number. Granulomas: Absent. Lymphoid aggregates: Present. Atypical infiltrates: Present. Comment: Immunohistochemistry ([id number]) is consistent with involvement by non-Hodgkin B cell lymphoma, mantle cell lymphoma. SPECIAL STAINS WITH MATCHED CONTROLS: Iron: Absent Reticulin: No significant increase of reticulin fibers is noted. PAS: Highlights myeloid cells and megakaryocytes. BONE MARROW GROSS A - Received is a container labeled with the patient's name and designated right hip. The specimen consists of a scant amount of soft tissue. The specimen is totally submitted for cell block preparation. B - Received labeled with the patient's name and designated right hip is a specimen that consists of approximately 8 cc of bloody fluid that on filtration yields multiple minute fragments of blood clots measuring in aggregate 3 x 2.5 x 0.3 cm. The specimen is totally submitted in one cassette. C - Also received are 15 unstained and 1 peripheral stained slides. The unstained slides are submitted for appropriate staining. Also received are two green top tubes which are sent to our reference lab for flow and CLL FISH. / SJ:rg 04/03/20 TC:0 CPT: 81869, 68363, 37618 x2, 50468 x3 ADDENDUM ADDENDUM ADDENDUM ADDENDUM ADDENDUM ADDENDUM ADDENDUM ADDENDUM ADDENDUM 04/18/2020 11:07 ADDENDUM 12/11/2020 10:26 ADDENDUM 04/18/2020 11:07 ADDENDUM 04/18/2020 11:07 ADDENDUM 04/18/2020 11:07 ADDENDUM 04/18/2020 11:07 CLL FISH PANEL REPORT FROM [facility] FISH RESULT: 43% of nuclei positive for CCND1-IGH fusion; 45% of nuclei positive for loss of one GARO signal INTERPRETATION: Mantle cell lymphoma related close detected. Please see complete report in e-chart or EMR This addendum is added to incorporate an outside pathology consultation report. The case was examined at [facility] (#[id number]) and the following diagnosis was rendered. Bone marrow, right iliac crest, peripheral blood smear, aspirate smears and clot sections: Mantle cell lymphoma. Please see complete above mentioned consultation report in EMR
[2020-04-03 08:57] LABS: Absolute Lymphocyte Count 21.36 X10^3/uL (0.83-4.51); Absolute Neutrophil Count 3.1 X10^3/uL (2.0-7.7); Basophil# 0.07 X10^3/uL; Basophil% 0.3 % (0-1); Eosinophil# 0.07 X10^3/uL; Eosinophils% 0.3 % (0-5); Hematocrit 39.6 % (37-47); Hemoglobin 11.8 g/dL (12.0-15.0); Lymphocyte # 21.36 X10^3/ul (4.0); Lymphocyte % 79.3 % (19-41); Mean Corp Hgb Conc 29.8 g/dL (32-36); Mean Corpuscular Hgb 24.9 pg (27.0-32.0); Mean Corpuscular Volume 83.5 fL (81-99); Mean Platelet Vol. 8.9 fl (6.2-12.0); Monocyte# 2.31 X10^3/uL; Monocyte% 8.6 % (0-10); NRBC Flagged by Analyzer 0 % (0-5); Neutrophil # 3.09 X10^3/uL (2.7-7.7); Neutrophil % 11.4 % (47-70); POSITIVE DIFFERENTIAL YES; POSITIVE MORPHOLOGY YES; Platelet Count 156 K/mm3 (150-450); RBC Distribution Width CV 16.1 % (11.6-14.6); RBC Distribution Width SD 48.8 fl (35.1-43.9); Red Blood Count 4.74 M/mm3 (4.2-5.4); White Blood Count 26.9 K/mm3 (4.4-11.0)
[2020-04-03 08:58] LABS: Differential Indicated SCAN CRITERIA MET
[2020-04-03 09:09] LABS: Prothrombin Time (Protime)PT. 12.8 SECONDS (11.7-14.9)
[2020-04-03 09:10] LABS: Partial Thromboplast Time 25.2 Seconds (24.1-36.2)
[2020-04-03 09:21] LABS: Atypical Lymphocyte 3+ %; Pathologist Review May foll; Vacuolated Cells ADEQ
--- NOTE | 2020-04-03 09:50 | CT_ITS ---
PROCEDURE: CT GUIDED BONE marrow biopsy and aspiration of the posterior aspect of the right iliac bone. DATE: 04/03/2020. INDICATION: Female, 69 years old. Splenomegaly. PHYSICIAN: Shabbir Hunter M.D. RADIATION DOSAGE (If Supplied By Facility): CTDIvol = ( 16.6 ) mGy, DLP = ( 283.15 ) mGycm. Individualized dose optimization techniques were utilized. PROCEDURE: The risks, benefits, and alternatives to the procedure were explained to the patient. The specific risk of hemorrhage requiring further treatment or intervention was detailed and accepted. Follow-up instructions were discussed with the patient as well. Written informed consent was obtained. The patient was brought into the CT suite and placed in the prone position. . An appropriate entry site was identified. The overlying skin was prepped and draped in the usual sterile fashion. 1% lidocaine was administered subcutaneously for local anesthesia. Conscious sedation was performed. The patient received 3 mg of VERSED and 75 mcg of FENTANYL intravenously. The conscious sedation protocol was followed. The patient was independently monitored by the department nurse. Under CT guidance, a bone marrow biopsy and bone marrow aspirates were performed utilizing an 11-gauge bone marrow biopsy system. The specimens were then placed in the appropriate fluid and transported to the laboratory for analysis. Hemostasis was obtained. The patient tolerated the procedure well without immediate complications. CT/Biopsy/Inj or Needle Placement IMPRESSION: Successful CT guided bone marrow biopsy and aspirate of the posterior aspect of the right iliac bone, as described above. Conscious sedation protocol was followed. Electronically Signed: Shabbir Hunter, at 11:26 EDT , Service support ,
[2020-04-03] MEDS: fentaNYL 100 MCG/2 ML Ampul IV ×2 (09:56→10:13)
[2020-04-03] MEDS: Midazolam 2 MG/2 ML Syringe IV ×2 (09:56→10:13)
== END ==
PROVIDERS: PCP Internal Medicine; Referring Provider Internal Medicine Hematology & Oncology; Visit Provider Internal Medicine Hematology & Oncology
DX: Z01.818 Encounter for other preprocedural examination (principal); C83.16 Mantle cell lymphoma, intrapelvic lymph nodes; R16.1 Splenomegaly, not elsewhere classified; R59.1 Generalized enlarged lymph nodes; R89.7 Abnormal histological findings in specimens from other organs, systems and tissues
CPT/HCPCS: 38221; 36415; 77012; 85025; 85610; 85730; 88305; 88311; 88313; 88341; 88342; 99155; 99156; J7040; A4216

== ENCOUNTER 2020-04-26 09:22 | Day surgery (SDC) | payer MEDICARE, OTHER, SELFPAY ==
[2020-04-17 11:06] VITALS: BMI 24.0
[2020-04-26] VITALS (8 sets, daily range): BP systolic 86–128; BP diastolic 60–71; PULSE 90–101; RESP 16; TEMP 36.3–37.4; O2SAT 90–96; BMI 24.1
--- NOTE | 2020-04-26 06:31 | HP_ITS ---
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 Is patient in pain?: No Allergies azithromycin Allergy (Unknown, Verified 04/19/20 08:51) Unknown cefdinir Allergy (Unknown, Verified 04/19/20 08:51) Unknown fluvastatin Allergy (Unknown, Verified 04/19/20 08:51) Unknown hyoscyamine Allergy (Unknown, Verified 04/19/20 08:51) Unknown ofloxacin Allergy (Unknown, Verified 04/19/20 08:51) Unknown Penicillins Allergy (Unknown, Verified 04/19/20 08:51) Myalgias rosuvastatin Allergy (Unknown, Verified 04/19/20 08:51) Myalgias sulfanilamide Allergy (Unknown, Verified 04/19/20 08:51) Unknown tetracycline Allergy (Unknown, Verified 04/19/20 08:51) Unknown Medications Ascorbic Acid [Vitamin C] 500 mg PO DAILY@0800 03/17/20 [History Confirmed 04/19/20] Aspirin [Adult Low Dose Aspirin EC] 81 mg PO DAILY 03/17/20 [History Confirmed 04/19/20] Biotin 5,000 mcg PO DAILY 03/17/20 [History Confirmed 04/19/20] Cholecalciferol (VIT D3) [Vitamin D] 1,000 unit PO DAILY 03/17/20 [History Confirmed 04/19/20] Cyclobenzaprine HCl 10 mg PO TID PRN 03/17/20 [History Confirmed 04/19/20] Fluticasone Propionate [Flonase Allergy Relief] 9.9 ml NS BID 03/17/20 [History Confirmed 04/19/20] Loratadine/Pseudoephedrine [Allergy Relief D 12-Hour Tab] 1 ea PO Q12H PRN PRN 03/17/20 [History Confirmed 04/19/20] Meloxicam [Mobic] 15 mg PO DAILY PRN 03/17/20 [History Confirmed 04/19/20] Montelukast Sodium [Singulair] 10 mg PO DAILY 03/17/20 [History Confirmed 04/19/20] Omeprazole [Prilosec] 40 mg PO TIDCM 03/17/20 [History Confirmed 04/19/20] Pitavastatin Calcium [Livalo] 2 mg PO DAILY 03/17/20 [History Confirmed 04/19/20] Turmeric Root Extract [Turmeric Curcumin] 500 mg PO DAILY 03/17/20 [History Confirmed 04/19/20] Irbesartan [Avapro] 300 mg PO DAILY 03/21/20 [History Confirmed 04/19/20] PFSH Medical History CATARACT SURGERY (Acute) Essential hypertension (Acute) GERD without esophagitis (Acute) Mixed hyperlipidemia (Acute) Occipital neuralgia of left side (Acute) Osteoarthritis (Acute) Right sided sciatica (Acute) Slow transit constipation (Acute) Squamous cell carcinoma of skin of upper lip (Acute) Surgical History H/O arthroscopic knee surgery (Acute) H/O: hysterectomy (Acute) History of appendectomy (Acute ~1964) History of arthroscopy of right shoulder (Acute) History of cholecystectomy (Acute) History of tonsillectomy (Acute ~1955) Hx of LASIK (Acute) Family History Father CAD (coronary artery disease) Mother CAD (coronary artery disease) Grandmother CVA (cerebral vascular accident) Social History (Updated 04/19/20 @ 09:[address] David Rai MD) Smoking Status: Never smoker HPI HPI HPI: TIFFANY MCKEON, is a 69 F who presents to the office today for HPI HPI Surgical H&P: Yes HPI: TIFFANY MCKEON, is a 69 F who presents to the office today for port placement. The patient was recently diagnosed with a mantle cell lymphoma. ROS General General: Yes weight change; no fatigue Cardio Cardiovascular: No murmur, pacemaker, heart disease, atrial fibrillation, high blood pressure, heart attack, heart stent, palpitations, shortness of breat with exertion or chest pain Psych Psychiatric: No depression or anxiety Resp Respiratory: No shortness of breath, No sleep apnea, No cough, No COPD, No asthma, No emphysema, No wheezing Gastro Gastrointestinal: No abdominal pain, No nausea or vomiting, No diarrhea, No constipation, No blood in stool, No acid reflux, No hemorrhoids, No ulcers, No gallbladder problem, No black,tarry stools Topher Hematologic: No blood thinners Exam Const General: cooperative Orientation: alert, oriented x3 Resp Effort & Inspection: normal respiratory effort Auscultation: clear to auscultation bilaterally Cardio Rate: regular rate Rhythm: regular rhythm Heart Sounds: no murmurs GI Inspection: non-distended Palpation: soft, splenomegaly, nontender Assessment & Plan Problems 1. 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 I discussed port placement with the patient in detail. I discussed the risks including but not limited to bleeding, infection, pneumothorax, line infection or DVT. The patient has a large amount of antibiotic allergies. I will place this with no prophylactic antibiotics as she is allergic to all antibiotics. I did discuss the slight increased risk of infection but I believe this is acceptable. We discussed the current risks associated with COVID-19. While it is understood that there is a community spread of COVID-19, the risk of dixie COVID-19 while at [facility] ([facility]) is very low; however, the risk cannot be completely mitigated because of the community spread of the disease. We discussed in detail the risk of exposure to and/or potential harm posed by the COVID-19 virus with having a surgery/procedure at this time versus the risk of delaying the surgery/procedure. It is not possible to know either the risk of delaying the surgery or procedure or chance of getting an infection with perfect accuracy, but a joint decision was made to proceed at this time with the scheduled surgery/procedure as indicated on the consent form. Patient was notified that we will need to comply with any screening or testing [facility] wishes to perform or that surgery may be delayed for any positive results. 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 There are no clinical changes since date of exam.
[2020-04-26] MEDS: Lactated Ringers 1,000 ML 100 ML IV (10:25)
[2020-04-26] MEDS: Bupiv/Epi 0.5% Mpf 30 ML Vial (11:39)
--- NOTE | 2020-04-26 11:54 | RAD_ITS ---
STUDY: X-RAY CHEST REASON FOR EXAM: Female, 69 years old. POST PORT INSERTION TECHNIQUE: Single AP portable view of the chest. COMPARISON: None. FINDINGS: A right-sided Port-A-Cath has been placed. The tip is at the midportion of the superior vena cava Mild increased markings at the left lung base suggestive of left basilar atelectasis and/or infiltrate with blunting of the left costophrenic angle. Normal size heart. Normal mediastinum and samuel. Normal visualized pulmonary arteries. There is atherosclerotic calcification of the aortic arch with tortuosity. There are diffuse degenerative changes of the visualized thoracic spine. Metallic anchor seen overlying the right humeral head most likely secondary to prior rotator cuff surgery. There is no demonstrated abnormality of the visualized soft tissue structures of the upper abdomen. RAD/CXR for Line Placement IMPRESSION: The tip of the right-sided portacatheter is in the midportion of the superior vena cava. Small left pleural effusion with left basilar atelectasis. Electronically Signed: Shabbir Hunter, at 13:58 EST , Service support ,
--- NOTE | 2020-04-26 11:55 | PCM.OPRPT ---
Problem List (1) Encounter for adjustment and management of vascular access device Status: Acute (2) Mantle cell lymphoma Status: Chronic Qualifiers: Lymphoma site: spleen Report of Operation Date of Procedure: 04/26/20 Pre-Operative Diagnosis: Need for vascular access for chemotherapy Post-Operative Diagnosis: Same Surgery/Procedure Performed:: Ultrasound and fluoroscopy guided right chest port placement utilizing right IJ Description of Procedure: After obtaining informed consent patient was brought back to the operating room MAC anesthesia was induced and the right chest and neck were prepped in normal sterile fashion. Ultrasound was used to evaluate both IJs and the right IJ was selected. Next, using a needle, the right IJ was accessed and a guidewire was passed on into the superior vena cava under fluoroscopy guidance. A small incision was made over the puncture site and the dilator introducer was placed over the guidewire. Next this was capped and the pocket was made for the port. 1% lidocaine with epinephrine was injected in the proposed port site. An incision was made with scalpel. Electrocautery was used to make a pocket under the skin and subcutaneous tissue. Hemostasis was obtained. Next, the catheter was tunneled up to the neck incision site and placed through the introducer. The peel-away introducer was removed and the position of the catheter was confirmed on fluoroscopy. Next, the catheter was trimmed and attached to the port with the locking device. Interrupted 2-0 Vicryl sutures were used to anchor the port to the chest wall and then the port was placed inside the pocket. The pocket was then flushed with saline and the port irrigated with saline. There was good blood return and the port flushed easily. Next, heparin was injected into the port. The skin was closed with subcutaneous interrupted 3-0 Vicryl sutures. A single 3-0 Vicryl sutures placed under the skin at the neck incision site. Steri-Strips were placed as well as op sites. Patient tolerated procedure well, was taken to PACU in stable condition. Chest x-ray will be obtained. Grafts/Implants Used: 8 [employer] PowerPort - Admit VTE Documentation VTE Mechan Device Prophylaxis: SCD's
--- NOTE | 2020-04-26 11:56 | DCINST_ITS ---
Discharge Diet: No Restrictions - Pain medication may cause nausea. You should typically eat light foods as you take your pain medication. Discharge Activity: Return to Normal Activity, May Shower - with your bandage in place in 1-2 days after surgery. DO NOT SHOWER WHEN YOUR PORT IS ACCESSED. Call your doctor if your incision/area has: Continuous Slow Oozing, Sudden Increased Bleeding, Increased Pain/ Swelling, Increased Redness Call your doctor if you observe: Fever of 101 or Higher Remove Dressing in (days):: 3 - When you remove the bandage, leave the steri- strips intact until they fall off. Allergies/Adverse Reactions: Allergies azithromycin Allergy (Unknown, Verified 04/26/20 10:05) Unknown cefdinir Allergy (Unknown, Verified 04/26/20 10:05) Unknown fluvastatin Allergy (Unknown, Verified 04/26/20 10:05) Unknown hyoscyamine Allergy (Unknown, Verified 04/26/20 10:05) Unknown ofloxacin Allergy (Unknown, Verified 04/26/20 10:05) Unknown Penicillins Allergy (Unknown, Verified 04/26/20 10:05) Myalgias rosuvastatin Allergy (Unknown, Verified 04/26/20 10:05) Myalgias sulfanilamide Allergy (Unknown, Verified 04/26/20 10:05) Unknown tetracycline Allergy (Unknown, Verified 04/26/20 10:05) Unknown Medications to take at Discharge Ascorbic Acid [Vitamin C] 500 mg PO DAILY@0800 03/17/20 Aspirin [Adult Low Dose Aspirin EC] 81 mg PO DAILY 03/17/20 Biotin 5,000 mcg PO DAILY 03/17/20 Cholecalciferol (VIT D3) [Vitamin D] 1,000 unit PO DAILY 03/17/20 Cyclobenzaprine HCl 10 mg PO TID PRN 03/17/20 Fluticasone Propionate [Flonase Allergy Relief] 9.9 ml NS BID 03/17/20 Loratadine/Pseudoephedrine [Allergy Relief D 12-Hour Tab] 1 ea PO DAILY 03/17/20 Meloxicam [Mobic] 15 mg PO DAILY PRN 03/17/20 Montelukast Sodium [Singulair] 10 mg PO DAILY 03/17/20 Omeprazole [Prilosec] 40 mg PO DAILY 03/17/20 Pitavastatin Calcium [Livalo] 2 mg PO QHS 03/17/20 Irbesartan [Avapro] 300 mg PO DAILY 03/21/20 Acyclovir 400 mg PO BID 30 Days #60 tab 04/24/20 Allopurinol [Zyloprim] 300 mg PO DAILY 7 Days #7 tab 04/24/20 Dietery Supplement 2 cap PO DAILY 04/24/20 Lidocaine/Prilocaine [Lidocaine-Prilocaine Cream] 1 applic TOPICAL DAILY PRN PRN 30 Days #1 tube 04/24/20 Ondansetron [Zofran] 8 mg PO Q8H PRN PRN 10 Days #30 tab 04/24/20 Test Results: Test results from this visit will be discussed in further detail at your follow- up appointment, if applicable. Please Follow Up With: David Rai MD When: Please call to schedule 1 week follow up appointment. [phone]
== END 2020-04-26 14:00 | disposition home or self-care (01) ==
LOC: SDC 09:23 → AC 09:24
PROVIDERS: PCP Internal Medicine; Referring Provider Surgery; Visit Provider Surgery
PROC: (CPT 36561; principal; 2020-04-26 10:45)
DX: Z45.2 Encounter for adjustment and management of vascular access device (principal); C83.17 Mantle cell lymphoma, spleen; Z20.828 Contact with and (suspected) exposure to other viral communicable diseases; Z79.899 Other long term (current) drug therapy; Z79.82 Long term (current) use of aspirin; K21.9 Gastro-esophageal reflux disease without esophagitis; M19.90 Unspecified osteoarthritis, unspecified site; E78.2 Mixed hyperlipidemia; I10 Essential (primary) hypertension; Z86.718 Personal history of other venous thrombosis and embolism
CPT/HCPCS: 00532; 36561; 71045; 77001; 87426; C9803; J7120; C1788

== ENCOUNTER → 2020-05-01 12:54 | Outpatient (CLI) | payer MEDICARE, OTHER, SELFPAY ==
[2020-04-27 10:54] VITALS: BMI 23.6
[2020-05-01 14:00] VITALS: PULSE 100; RESP 16
--- NOTE | 2020-05-01 14:00 | CPS ---
PATIENT'S FIRST PENTAMIDINE AEROSOL. SHE NOTES H/O ALLERGY TO MANY DIFFERENT ABX. I EXPLAINED PROCEDURE AND INDICATIONS WHICH SHE WAS AWARE OF AND AGREEABLE TO. SHE DOES HAVE A RESCUE INHALER SINCE LUNG INFECTION AT BEGINNING OF THE YEAR. INSTRUCTED HER TO ADVISE DURING TREATMENT IF SHE NOTED ANY INCREASE IN SOB/DYSPNEA OR WHEEZING. BBS CLEAR THROUGHOUT PRE/POST. SHE DID WELL WITH MEDICATION, NO ADVERSE REACTIONS NOTED AT TIME OF D/C. INSTRUCTED HER TO CALL [facility] SHOULD SHE HAVE QUESTIONS. NEXT TREATMENT SCHEDULED 05/30/20 PRIOR TO CHEMO ON SAME DAY(OK PER SONY MILLER.) PT TO HAVE TOTAL OF 7 DOSES
== END ==
PROVIDERS: PCP Internal Medicine; Referring Provider Nurse Practitioner Family; Visit Provider Nurse Practitioner Family
DX: C83.10 Mantle cell lymphoma, unspecified site (principal); Z29.8 Encounter for other specified prophylactic measures
CPT/HCPCS: 94642

== ENCOUNTER → 2020-05-29 12:53 | Outpatient (CLI) | payer MEDICARE, OTHER, SELFPAY ==
[2020-04-27 10:54] VITALS: BMI 23.6
[2020-05-16 09:03] VITALS: BMI 24.0
== END ==
PROVIDERS: PCP Internal Medicine; Referring Provider Nurse Practitioner Family; Visit Provider Nurse Practitioner Family
DX: Z00.00 Encounter for general adult medical examination without abnormal findings (principal)
CPT/HCPCS: 94642

== ENCOUNTER 2020-05-31 12:35 | Inpatient (IN) | payer MEDICARE, OTHER, SELFPAY ==
[2020-05-31] VITALS (12 sets, daily range): BP systolic 97–132; BP diastolic 42–73; PULSE 70–124; RESP 16–20; TEMP 36.5–38.5; O2SAT 93–98; BMI 23.4; BMI 23.6
--- NOTE | 2020-05-31 13:37 | ED.VIS.GEN ---
History of Present Illness Chief Complaint: Fever Informant: Patient, PCP - Nurse practitioner Chaitanya Onset: Yesterday Context: Sudden Onset Timing: Intermittent Quality: T-max 103.0?F Location: Generalized Current Severity: Mild Maximum Severity: Moderate Worsened by: Recent chemo for treatment lymphoma Relieved by: Acetaminophen Associated Symptoms: Patient now has a generalized rash Narrative: Patient is a 69-year-old woman history of lymphoma. Received first cycle of therapy in December. She received second cycle yesterday. She reported temperature of 103.0 ?F last evening. She has been taking acetaminophen [id number]. She went to the infusion center. Her temperature at the infusion center was 101.0 ?F. She denies headache. She denies photophobia, neck pain or neck stiffness. She denies ear pain, ear drainage or ringing or ears. She denies rhinorrhea, congestion or postnasal drainage. She denies sore throat. She denies dysphonia or dysphagia. She denies chest pain. She denies cough or shortness of breath. She denies nausea, vomiting or diarrhea. She denies dysuria, frequency, urgency or hematuria. She denied rash. She denies contact with anyone that is ill. Patient noted rash when I asked her to roll up her sleeves and shirt to perform extremity and torso exam. She states that was not present when she was at the infusion center. Prior similar symptoms: No Recent Illness/Hospitalization: Yes - Past Medical History (1) Lymphadenopathy Status: Chronic (2) Mantle cell lymphoma Status: Chronic (3) Splenomegaly Status: Chronic Past Medical History - Allergies and Home Meds Allergies/Adverse Reactions: Allergies azithromycin Allergy (Severe, Verified 05/31/20 13:48) Anaphylaxis cefdinir Allergy (Severe, Verified 05/31/20 13:48) Anaphylaxis fluvastatin Allergy (Severe, Verified 05/31/20 13:48) Anaphylaxis hyoscyamine Allergy (Severe, Verified 05/31/20 13:48) Anaphylaxis ofloxacin Allergy (Severe, Verified 05/31/20 13:48) Anaphylaxis Penicillins Allergy (Severe, Verified 05/31/20 13:48) Rash rosuvastatin Allergy (Severe, Verified 05/31/20 13:48) Anaphylaxis sulfanilamide Allergy (Severe, Verified 05/31/20 13:48) Anaphylaxis tetracycline Allergy (Severe, Verified 05/31/20 13:48) Anaphylaxis Primary Care Physician: Michelle Cummins DO [Primary Care Provider] - Prior records reviewed: Yes Lives: Spouse/ Significant Other Smoking Status: Never smoker Alcohol: None Drugs: None Review of Systems General: Reports: Chills, Fever. Denies: Malaise, Subjective, Sweats, Weight loss Eyes: Denies: Visual changes - bilaterally, Blurred Vision - bilaterally ENT: Denies: Bilateral ear pain, Rhinorrhea, Sore throat Cardiovascular: Denies: Chest pain, Palpitations Respiratory: Denies: Dyspnea, Cough, Dyspnea on exertion Gastrointestinal: Denies: Abdominal pain, Nausea, Vomiting, Diarrhea, Melena, Hematochezia Genitourinary: Denies: Dysuria, Hematuria, Frequency Musculoskeletal: Denies: Myalgias, Arthralgias, Neck pain, Back pain, Swelling, Extremity Pain, -, - Skin: Denies: Rash, Wounds Neurological: Denies: Headache, Weakness, Numbness Endocrine: Denies: Polyuria, Polydipsia Hematologic: Denies: Easy bruising Physical Exam Vital Signs/Narrative: Vital Signs Temp Pulse Resp BP Pulse Ox 05/31/20 12:36 101.3 F H 124 H 20 H 125/62 H 98 Inital Vital Signs reviewed: Yes General: Well nourished, Well developed, No Acute Distress Head: Normocephalic, Atraumatic Eyes: Perrl, EOMI. Negative for: Pale conjunctiva, Scleral icterus ENT: Moist mucous membranes, No rhinorrhea Neck: Supple, Nontender, No lymphadenopathy, No JVD Cardiovascular: Regular rhythm, No murmurs, Normal S1, Normal S2, Tachycardia Respiratory: No distress, CTA bilaterally, Chest nontender Abdomen: Soft, Nontender, Nondistended, Normal bowel sounds Rectal: Deferred Back: Nontender, Normal Inspection. Negative for: CVA tenderness Extremities: Nontender, No edema Skin: No Trauma, Rash - He has a blanching confluent generalized erythematous rash. She is hot to touch. There is no blistering. There is no open wounds.. Negative for: Cyanosis, Diaphoresis, Jaundice Neurological: Alert, Oriented x3, Cranial nerves II-XII grossly intact, Normal Strength, Normal Sensation Psychological: Normal affect, Normal Mood Diagnostic/Tx/Re-eval Impressions Chest X-Ray 12/16/20 13:48 IMPRESSION: No acute abnormality is seen. Electronically Signed: Shabbir Hunter, at 14:06 EST , Service support , 05/31/20 13:48 Chest 1 View (Portable) [RAD] Stat Laboratory Results 05/31/20 05/31/20 05/31/20 14:00 14:00 14:00 PT 15.4 H INR 1.3 APTT 26.8 Lactic Acid 0.9 Urine Color Yellow Urine Clarity Sl. Cloudy Urine pH 5.0 Ur Specific [place] 1.015 Urine Protein 30 H Urine Glucose (UA) Normal Urine Ketones Negative Urine Occult Blood Negative Urine Nitrite Negative Urine Bilirubin Negative Urine Urobilinogen 1 H Ur Leukocyte Esterase 25 H Urine RBC 0 SEEN Urine WBC 0-5 SEEN Ur Squamous Epith Cells 0-5 SEEN Urine Bacteria 2+ Urine Mucus 0 SEEN White count is normal. Patient is anemic. Lactate was normal. - Rhythm Strip Rhythm Strip: Sinus Tach Rate: 110 - EKG Initial EKG Interpretation: Sinus Tachycardia - There are no acute ischemic changes. Intervals are normal. - Medical Decision Making Recent chemo additional labs were ordered including urine culture. She was treated with IV antibiotics. Based on her reported allergy/allergic reaction to penicillin she received meropenem. Labs that were ordered from [facility] were reviewed. Patient has a normal white count. She is anemic. Urine reveals 1+ bacteria. Culture was ordered. UA in the emergency department feels 2+ bacteria and is a clean specimen. Lactate is pending. Chest x-ray revealed no abnormality. Covid test is pending. My suspicion is that patient has urinary tract infection. When I went to reevaluate patient at 1431 blood pressure was 97 with a mean arterial of 67. A liter bolus was ordered. Patient was informed that she will require admission. Disposition pending lactate level. Lactate is pending. Hospitalist, Dr. Shonda Peres is aware. If lactate is greater than 4 she will receive the fluid bolus and will be admitted to ICU. Plan time of dictation is stepdown. - Critical Care Time Critical care time (excluding procedures): 30-74 minutes - CC 34 minutes, this includes time to obtain history, documentation, speaking with oncologist nurse practitioner, hospitalist, initiation of treatment and interpretation of lab results. ED Disposition - Plan for ED Patient: Disposition: Acute Care Hospital [facility] Diagnosis: Hypotension, Urinary tract infection, Patient on palliative antineoplastic chemotherapy, Sepsis, Sinus tachycardia by electrocardiogram Referrals: Michelle Cummins DO [Primary Care Provider] -
--- NOTE | 2020-05-31 13:48 | RAD_ITS ---
STUDY: X-RAY CHEST REASON FOR EXAM: Female, 69 years old. PT CAME FROM INFUSION FOR A FEVER. LAST TREATMENT WAS YESTERDAY TECHNIQUE: Single AP portable view of the chest. COMPARISON: Comparison is made with prior study dated 04/26/2020. FINDINGS: A right-sided raymundo catheter is in situ with the tip in the proximal portion of the superior vena cava. The lungs are clear and expanded. There is no demonstrated pleural abnormality. Normal size heart. Normal mediastinum and samuel. Normal visualized pulmonary arteries. There is atherosclerotic calcification of the aortic arch with tortuosity. There are diffuse degenerative changes of the visualized thoracic spine. The metallic surgical clip is seen overlying the right humeral head. There is no demonstrated abnormality of the visualized soft tissue structures of the upper abdomen. RAD/Chest 1 View (Portable) IMPRESSION: No acute abnormality is seen. Electronically Signed: Shabbir Hunter, at 14:06 EST , Service support ,
[2020-05-31 14:25] LABS: Mucous, Urine 0 SEEN /hpf (<or=2+); Red Blood Cells-Urine 0 SEEN /hpf (0-5)
[2020-05-31 14:26] LABS: Color, Urine Yellow (Yellow); Glucose, Dipstick Normal (Normal); Ketone-Dipstick Negative (Negative); Leukocyte Esterase-Dipstick 25 /ul (Negative); Nitrite-Dipstick Negative (Negative); Occult Blood-Urine Negative /ul (Negative); Protein-Dipstick 30 mg/dl (Negative); Specific Gravity, Urine 1.015 (1.002-1.030); Urine Bilirubin Dipstick Negative (Negative); Urine Clarity Sl. Cloudy (Clear); Urine Urobilinogen 1 mg/dl (Normal)
[2020-05-31 14:32] LABS: Bacteria 2+ /hpf (None Seen); Squamous Epithelial Cells - UA 0-5 SEEN /hpf (5-10); White Blood Cells 0-5 SEEN /hpf (0-5)
[2020-05-31] MEDS: 0.9% Normal Saline 1,000 ML 1000 ML IV (14:36)
[2020-05-31 14:39] LABS: International Normalized Ratio 1.3; Partial Thromboplast Time 26.8 Seconds (24.1-36.2); Prothrombin Time (Protime)PT. 15.4 SECONDS (11.7-14.9)
--- NOTE | 2020-05-31 14:41 | NURSING ---
SPOUSE BEING SENT HOME FROM INFUSION CENTER. HIS CELL NUMBER IS [phone]
[2020-05-31 14:47] LABS: Lactic Acid 0.9 mmol/L (0.4-1.9)
--- NOTE | 2020-05-31 15:03 | PCM.HP.STD ---
Problem List (1) Urinary tract infection Status: Acute (2) HTN (hypertension) Status: Chronic (3) HLD (hyperlipidemia) Status: Chronic (4) Splenomegaly Status: Chronic (5) Mantle cell lymphoma Status: Chronic Qualifiers: Lymphoma site: spleen Qualified Code(s): C83.17 - Mantle cell lymphoma, spleen (6) Sepsis Status: Acute History of Present Illness Date of Admission: 05/31/20 Chief Complaint: fever The patient is a 69 year old F with pmhx notable for mantle cell / non hodgkins lymphoma pt of Dr. Ma who is undergoing chemo last dose yesterday, who presented to the ER with fever. The patient started feeling unwell last night after chemo. She was aching all over mainly in her shoulders and knees, and very fatigued. Later she developed fevers off and on all night. This AM she had a temp of 102 and developed chills. She was sent to the ER by her oncologists. She was found to have UTI. She does admit to increased frequency. She denies dysuria.She has anaphylaxis with many antibiotics however currently she is tolerating a dose of meropenem in the ER. [] Past Medical History Past Medical History (Chronic Problems): Chronic Problems (Last Reviewed 05/30/20 @ 09:06 by Dixie Gomez) Splenomegaly (Chronic) Lymphadenopathy (Chronic) Mantle cell lymphoma (Chronic) HTN (hypertension) (Chronic) HLD (hyperlipidemia) (Chronic) Medical History: Medical History (Last Reviewed 05/30/20 @ 09:06 by Dixie Gomez) CATARACT SURGERY LEFT EYE WITH ASTIGMATISM LENS IMPLANT 01/10/2020 Essential hypertension I10 GERD without esophagitis K21.9 Mixed hyperlipidemia E78.2 Occipital neuralgia of left side M54.81 Osteoarthritis M19.90 Right sided sciatica M54.31 Slow transit constipation K59.01 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 EXCISION 2000 port placement Apr Allergies azithromycin Allergy (Severe, Verified 05/31/20 13:48) Anaphylaxis cefdinir Allergy (Severe, Verified 05/31/20 13:48) Anaphylaxis fluvastatin Allergy (Severe, Verified 05/31/20 13:48) Anaphylaxis hyoscyamine Allergy (Severe, Verified 05/31/20 13:48) Anaphylaxis ofloxacin Allergy (Severe, Verified 05/31/20 13:48) Anaphylaxis Penicillins Allergy (Severe, Verified 05/31/20 13:48) Rash rosuvastatin Allergy (Severe, Verified 05/31/20 13:48) Anaphylaxis sulfanilamide Allergy (Severe, Verified 05/31/20 13:48) Anaphylaxis tetracycline Allergy (Severe, Verified 05/31/20 13:48) Anaphylaxis Home Medications: Ambulatory Orders Medication Instructions Recorded Ascorbic Acid [Vitamin C] 500 mg PO DAILY@0800 03/17/20 Aspirin [Adult Low Dose Aspirin EC] 81 mg PO DAILY 03/17/20 Biotin 5,000 mcg PO DAILY 03/17/20 Cholecalciferol (VIT D3) [Vitamin 1,000 unit PO DAILY 03/17/20 D] Cyclobenzaprine HCl 10 mg PO TID PRN 03/17/20 Fluticasone Propionate [Flonase 9.9 ml NS BID 03/17/20 Allergy Relief] Loratadine/Pseudoephedrine 1 ea PO DAILY 03/17/20 [Allergy Relief D 12-Hour Tab] Meloxicam [Mobic] 15 mg PO DAILY PRN 03/17/20 Montelukast Sodium [Singulair] 10 mg PO DAILY 03/17/20 Omeprazole [Prilosec] 40 mg PO DAILY 03/17/20 Pitavastatin Calcium [Livalo] 2 mg PO QHS 03/17/20 Irbesartan [Avapro] 300 mg PO DAILY 03/21/20 Acyclovir 400 mg PO BID 30 Days #60 tab 04/24/20 Dietery Supplement 2 cap PO DAILY 04/24/20 Lidocaine/Prilocaine 1 applic TOPICAL DAILY PRN PRN 30 04/24/20 [Lidocaine-Prilocaine Cream] Days #1 tube Ondansetron [Zofran] 8 mg PO Q8H PRN PRN 10 Days #30 tab 04/24/20 Surgical History: Surgical History (Last Reviewed 05/30/20 @ 09:06 by Dixie Gomez) H/O arthroscopic knee surgery Z98.890 LEFT 1990 H/O: hysterectomy Z90.710 1993 History of appendectomy Onset Date: ~1964 Z90.49 History of arthroscopy of right shoulder Z98.890 2009 History of cholecystectomy Z90.49 2014 History of tonsillectomy Onset Date: ~1955 Z90.89 Hx of LASIK Z98.890 2000 Surgical History: appendectomy, cataract, cholecystectomy, hysterectomy, - - lasix Psychiatric History: No pertinent psych hx 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 Lives: Spouse/ Significant Other Smoking Status: Never smoker Alcohol: None Drugs: None - *Family History Maternal Family History: Family History (Last Reviewed 05/30/20 @ 09:06 by Dixie Gomez) Father CAD (coronary artery disease) Mother CAD (coronary artery disease) Grandmother CVA (cerebral vascular accident) History Items: Heart Disease Paternal Family History: Family History (Last Reviewed 05/30/20 @ 09:06 by Dixie Gomez) Father CAD (coronary artery disease) Mother CAD (coronary artery disease) Grandmother CVA (cerebral vascular accident) History Items: Heart Disease Review of Systems Constitutional: Reports: Fever, Malaise, Weakness, Fatigue. Denies: Chills, Weight Change HEENT: Denies: Head Aches, Sinus Congestion, Sinus Drainage Cardiovascular: Denies: Chest Pain, Heaviness, Light Headedness, Palpitations Respiratory: Denies: Cough, Shortness of Breath, Shortness of breath at rest, Sputum production Gastrointestinal: Denies: Abdominal Pain, Diarrhea, Nausea, Vomiting Genitourinary: Reports: Frequency. Denies: Dysuria, Hesitancy, Retention, Urgency Musculoskeletal: Reports: Joint Pain - knees, shoulders. Denies: Joint Tenderness Skin: Denies: Lesions, Rash, Wounds Neurological: Denies: Confusion, Focal weakness, Numbness, Tingling Psychiatric: Denies: Anxiety, Depression, Homicidal Ideations, Suicidal Ideations Hematologic/ Lymphatic: Denies: Easy Bruising, Easy Bleeding VTE Information - Inpt Only VTE Present on Admission: No VTE Mechan Device Prophylaxis: None VTE Pharm Prophylaxis ordered?: Yes Patient Problems: Active and Suspected Problems (Last Reviewed 05/30/20 @ 09:06 by Dixie Gomez) Hypotension (Acute) Urinary tract infection (Acute) Patient on palliative antineoplastic chemotherapy (Acute) Sepsis (Acute) Sinus tachycardia by electrocardiogram (Acute) - Physical Exam Vitals/I&O's: Vital Signs Temp Pulse Resp BP Pulse Ox 101 F H 111 H 16 97/54 L 96 05/31/20 14:00 05/31/20 14:00 05/31/20 14:00 05/31/20 14:00 05/31/20 14:00 Oxygen Delivery Method Room Air Weight: 142 lb Body Mass Index (BMI) 23.6 General: Alert, Oriented x3, Cooperative HEENT: Atraumatic, PERRLA, EOMI, Normocephalic Neck: Supple, No JVD, Negative Carotid Bruits Lungs: Clear to auscultation, Normal air movement Cardiovascular: Regular rate, No murmurs Abdomen: Bowel Sounds Present, Soft, Non Tender Extremities: No edema, Capillary Refill Less than 3 Seconds Skin: No rashes, No breakdown, - - no irritation around chemo port Musculoskeletal: No Tenderness to Palpation of Joints or Extremities Neurological: Cranial nerves II-XII grossly intact Psych/Mental Status: Normal Affect, Appropriate, Alert and oriented to time, place, person, mood and affect Laboratory Results 05/31/20 14:00: PT 15.4 H, INR 1.3, APTT 26.8 05/31/20 14:00: Lactic Acid 0.9 05/31/20 14:00: COVID-19 (GABY) Pending 05/31/20 14:00: Urine Color Yellow, Urine Clarity Sl. Cloudy, Urine pH 5.0, Ur Specific [place] 1.015, Urine Protein 30 H, Urine Glucose (UA) Normal, Urine Ketones Negative, Urine Occult Blood Negative, Urine Nitrite Negative, Urine Bilirubin Negative, Urine Urobilinogen 1 H, Ur Leukocyte Esterase 25 H, Urine RBC 0 SEEN, Urine WBC 0-5 SEEN, Ur Squamous Epith Cells 0-5 SEEN, Urine Bacteria 2+, Urine Mucus 0 SEEN Current Medications Sodium Chloride () 1,000 mls @ 1,000 mls/hr IV .Q1H ONE Stop: 05/31/20 15:23 Last Admin: 05/31/20 14:36 Dose: 1,000 mls/hr Documented by: Assessment/Plan All Active Problems (Last Reviewed 05/30/20 @ 09:06 by Dixie Gomez) Encounter for adjustment and management of vascular access device (Acute) Diarrhea (Acute) Hypotension (Acute) Urinary tract infection (Acute) Patient on palliative antineoplastic chemotherapy (Acute) Sepsis (Acute) Sinus tachycardia by electrocardiogram (Acute) 1. Acute sepsis 2/2 UTI - fever, tachycardia, + UA. Immunocompromised 2/2 NHL and chemo. Multiple anaphylactic abx allergies. Continue meropenem. Obtain cultures. Lactate pending. No leukocytosis. Covid neg. CXR neg. Blood cultures pending. 2. NHL - pt of Dr. Ma. Last chemo yesterday. 3. HTN - borderline low bp. continue fluids. hold arb 4. HLD - statin 5. Anemia / Thrombocytopenia - avoid heparin products. AM CBC. DVT ppx: SCDs This patient was seen by Justen Rivas PA-C under the supervision of Dr. Peres.
--- NOTE | 2020-05-31 15:18 | NURSING ---
PCU WHITE ABSCESS, HYPOTENSION, UTI, CHEMO PATIENT
--- NOTE | 2020-05-31 18:56 | PCS.PANDOC ---
PANDEMIC DOCUMENTATION INITIATED: Date: 05/31/2020 Time: 1800
[2020-05-31] MEDS: 0.9% Normal Saline 1,000 ML 100 ML IV (19:50)
[2020-05-31 19:53] LABS: Magnesium 1.7 mg/dL (1.6-2.6); Phosphorus 4.2 mg/dL (2.5-4.9)
[2020-05-31] MEDS: Aspirin E.C. 81 MG Tablet PO (21:12)
[2020-05-31] MEDS: Acyclovir 200 MG Capsule 400 MG PO (21:12)
[2020-06-01] VITALS (9 sets, daily range): BP systolic 129–130; BP diastolic 55–66; PULSE 82–94; RESP 16–18; TEMP 36.3–37.1; O2SAT 95–98
[2020-06-01 07:11] LABS: Absolute Lymphocyte Count 0.15 X10^3/uL (0.83-4.51); Absolute Neutrophil Count 1.1 X10^3/uL (2.0-7.7); Basophil# 0.01 X10^3/uL; Basophil% 0.5 % (0-1); Eosinophil# 0.43 X10^3/uL; Eosinophils% 23.4 % (0-5); Hematocrit 28.2 % (37-47); Hemoglobin 8.4 g/dL (12.0-15.0); Lymphocyte # 0.15 X10^3/ul (4.0); Lymphocyte % 8.2 % (19-41); Mean Corp Hgb Conc 29.8 g/dL (32-36); Mean Corpuscular Hgb 25.5 pg (27.0-32.0); Mean Corpuscular Volume 85.5 fL (81-99); Mean Platelet Vol. 9.9 fl (6.2-12.0); Monocyte# 0.14 X10^3/uL; Monocyte% 7.6 % (0-10); NRBC Flagged by Analyzer 0 % (0-5); Neutrophil % 59.8 % (47-70); POSITIVE COUNT YES; POSITIVE DIFFERENTIAL YES; POSITIVE MORPHOLOGY YES; Platelet Count 52 K/mm3 (150-450); RBC Distribution Width SD 64.8 fl (35.1-43.9); White Blood Count 1.8 K/mm3 (4.4-11.0)
[2020-06-01 07:15] LABS: Differential Indicated SCAN CRITERIA MET
[2020-06-01 07:53] LABS: AST(SGOT) 15 U/L (15-37); Alanine Aminotransfer ALT/SGPT 20 U/L (13-56); Albumin, Serum 2.8 g/dL (3.2-5.0); Alkaline Phosphatase 73 U/L (45-117); Anion Gap 6 (5-15); BUN 17 mg/dL (7-18); Calcium,Total 8.6 mg/dL (8.5-10.1); Chloride 110 mmol/L (98-107); Creatinine, Serum 0.77 mg/dL (0.55-1.02); EST Glomerular Filtration Rate 79 mL/min (>60); Est Glom Filt Rate - Afr Amer 95 mL/min (>60); Estimated Creatinine Clearance 47.78 ml/min; Globulin 2.8 g/dL (2.2-4.2); Glucose 77 mg/dL (74-106); Potassium 4.1 mmol/L (3.5-5.1); Protein, Total 5.6 g/dL (6.4-8.2); Sodium Level 143 mmol/L (136-145)
[2020-06-01] MEDS: 0.9% Normal Saline 1,000 ML 100 ML IV ×2 (08:27→21:01)
[2020-06-01] MEDS: Enoxaparin 40 MG/0.4 ML Syringe SC (08:28)
[2020-06-01] MEDS: Loratadine 10 MG Tablet PO (08:28)
[2020-06-01] MEDS: Acyclovir 200 MG Capsule 400 MG PO ×2 (08:28→20:57)
[2020-06-01] MEDS: Pantoprazole Sodium 40 MG Tablet PO (08:28)
[2020-06-01] MEDS: Fluticasone 0.05% 1 SPRAY NASAL.SRY NASAL (08:29)
--- NOTE | 2020-06-01 13:50 | CASEMGMT ---
MILLER LOPEZ assessment: Face to Face with patient for initial transition planning/care coordination assessment. MILLER LOPEZ introduced self and role at [facility], pt voices understanding and consents to assessment at this time. Pt is sitting up in bed in no distress at this time. Pt is A/Ox4 at this time and answers all questions appropriately at this time. Care providers, pharmacy, and demographics verified at this time. Presentation: Pt came for an infusion for a fever. last treatment yesterday Admitting dx: Sepsis, UTI PCP: Elda Cummins Specialists: yanet Martinez Preferred Pharmacy: [facility] Insurance: [facility] A/B, MMO Prescription Benefit: Yes Living Will/HPOA: Pt states has LW/HPOA and is aware that only the LW is on file at [facility] at this time. Pt states her , Placido Israel, is HPOA. LNOK: Placido Israel, Living Arrangements: [facility] [place] of stairs to basement and states no concerns at home at this time. Pt states is independent with ADL's. Transportation: Pt states drives self and states no transportation concerns at this time. DME/HHC: Pt states has no current DME or need for any DME at this time. Pt states no hx of HHC or SNF in the past. Pt states no concerns with going home at time of discharge. Pt states is retired. Pt states does not smoke cigarettes or drink ETOH. Pt states no further concerns/needs at this time. CM to follow for any further discharge planning/needs. Advised pt to ask for CM if any further questions/concerns/needs arise, voices understanding. Pt Goal: Home Plan[place] MILLER LOPEZ
[2020-06-01 13:54] LABS: Pathologist Review Reviewed
--- NOTE | 2020-06-01 15:07 | PN_ITS ---
Patient Problems: Active and Suspected Problems (Last Reviewed 05/30/20 @ 09:06 by Dixie Gomez) Hypotension (Acute) Urinary tract infection (Acute) Patient on palliative antineoplastic chemotherapy (Acute) Sepsis (Acute) Sinus tachycardia by electrocardiogram (Acute) Subjective: Patient seen and examined. She was admitted with a complaint of fever. She has a history of non-Hodgkin's lymphoma and is undergoing chemotherapy with her last dose being the day before admission. She was found to have UTI and is currently on IV meropenem. Patient feels much better today. She denies fever, chills, nausea vomiting, shortness of breath, abdominal pain, diarrhea vomiting. Review of systems otherwise negative. She has remained hemodynamically stable. Vitals/I&O's: Vital Signs Temp Pulse Resp BP Pulse Ox 98.7 F 88 18 130/66 H 98 06/01/20 08:14 06/01/20 08:14 06/01/20 08:14 06/01/20 08:14 06/01/20 08:14 Oxygen Delivery Method Room Air Weight: 141 lb 15.643 oz Body Mass Index (BMI) 23.6 Intake and Output for Last 24 Hours 05/30/20 05/31/20 06/01/20 23:59 23:59 23:59 Intake Total 2271.67 / 2271.67 993.33 / 993.33 Balance 2271.67 / 2271.67 993.33 / 993.33 General: Alert, Oriented x3, Cooperative, No apparent distress HEENT: Atraumatic, PERRLA, EOMI, Normocephalic Oral: Moist Mucosa Neck: Supple, No JVD, Negative Carotid Bruits Lungs: Clear to auscultation, Normal air movement, No rhonchi, No wheeze, No rales Cardiovascular: Regular rate, Regular Rhythm, Normal S1, Normal S2, No murmurs Abdomen: Bowel Sounds Present, Soft, Non Tender, Splenomegaly Extremities: No clubbing, No cyanosis, No edema, Capillary Refill Less than 3 Seconds Skin: No rashes, No breakdown Musculoskeletal: No Tenderness to Palpation of Joints or Extremities Lymphatic: No Cervical, Supraclavicular, or Inguinal Adenopathy Neurological: Cranial nerves II-XII grossly intact, Neuro grossly intact, Motor Exam 5/5 strength throughout Psych/Mental Status: Normal Affect, Appropriate, Alert and oriented to time, place, person, mood and affect Microbiology Past 72 Hours 05/31/20 14:00 Urine, Clean Catch Urine Culture - Preliminary Culture exhibits no growth. Laboratory Results 05/31/20 14:00: COVID-19 (GABY) Negative 05/31/20 19:16: Phosphorus 4.2, Magnesium 1.7 06/01/20 06:05: WBC 1.8 L, RBC 3.30 L, Hgb 8.4 L, Hct 28.2 L, MCV 85.5, MCH 25.5 L, MCHC 29.8 L, RDW Std Deviation 64.8 H, RDW Coeff of Darvin 21.0 H, Plt Count 52 L, MPV 9.9, Immature Gran % (Auto) 0.500, Neut % (Auto) 59.8, Lymph % (Auto) 8.2 L, [place] % (Auto) 7.6, Eos % (Auto) 23.4 H, Baso % (Auto) 0.5, Absolute Neuts (auto) 1.1 L, Absolute Lymphs (auto) 0.15 L, Nucleated RBC % 0, Diff Path Review Reviewed 06/01/20 06:05: Sodium 143, Potassium 4.1, Chloride 110 H, Carbon Dioxide 27.0, Anion Gap 6, BUN 17, Creatinine 0.77, Estim Creat Clear Calc 47.78, Est GFR (MDRD) Af Amer 95, Est GFR (MDRD) Non-Af 79, BUN/Creatinine Ratio 22.0 H, Glucose 77, Calcium 8.6, Total Bilirubin 0.40, AST 15, ALT 20, Alkaline Phosphatase 73, Total Protein 5.6 L, Albumin 2.8 L, Globulin 2.8, Albumin/Globulin Ratio 1.0 Diagnostic Data Chest X-Ray 05/31/20 13:48 IMPRESSION: No acute abnormality is seen. Electronically Signed: Shabbir Hunter, at 14:06 EST , Service support , Current Medications Acetaminophen (Acetaminophen 325 Mg Tablet) 650 mg PO Q6H PRN PRN PRN Reason: Pain Score 1-10/Temp > 100.7 F Acyclovir (Acyclovir 200 Mg Capsule) 400 mg PO BID RK Last Admin: 06/01/20 08:28 Dose: 400 mg Documented by: Al Hydroxide/Mg Hydroxide (Mag Hydrox/Al Hydrox/Simeth 30 Ml Udc) 30 ml PO Q6H PRN PRN PRN Reason: Gastric Burning Albuterol Sulfate (Albuterol 2.5 Mg/3 Ml Vial.Neb.) 2.5 mg INHALATION Q2H PRN PRN PRN Reason: Dyspnea, wheezing Aspirin (Aspirin E.C. 81 Mg Tablet) 81 mg PO QHS [facility] Last Admin: 05/31/20 21:12 Dose: 81 mg Documented by: Enoxaparin Sodium (Enoxaparin 40 Mg/0.4 Ml Syringe) 40 mg SC DAILY [facility] Last Admin: 06/01/20 08:28 Dose: 40 mg Documented by: Fluticasone Propionate (Fluticasone 0.05% 1 [place] Nasal.Sry) 1 spray NASAL DAILY [facility] Last Admin: 06/01/20 08:29 Dose: 1 spray Documented by: Guaifenesin (Guaifenesin 10 Ml Udc (200mg/10ml)) 20 ml PO Q4H PRN PRN PRN Reason: COUGH Heparin Sodium (Beef Lung) (Heparin Pf Lock 10 Units/Ml 50 Units/5 Ml Syringe) 50 units IV UD PRN PRN Reason: Port-a-Cath (VAD)Heparin Flush Sodium Chloride () 1,000 mls @ 100 mls/hr IV .Q10H [facility] Last Admin: 06/01/20 08:27 Dose: 100 mls/hr Documented by: Meropenem 1 gm/ Sodium (Chloride) 120 mls @ 33 mls/hr IV Q12 [facility] Last Infusion: 06/01/20 14:19 Dose: Infused Documented by: Sodium Chloride () 250 mls @ 15 mls/hr IV .[id number] PRN PRN Reason: Saline Flush Sodium Chloride () 250 mls @ 15 mls/hr IV .[id number] PRN PRN Reason: Additional IVPB Infusion Loratadine (Loratadine 10 Mg Tablet) 10 mg PO DAILY [facility] Last Admin: 06/01/20 08:28 Dose: 10 mg Documented by: Magnesium Hydroxide (Magnesium Hydroxide 30 Ml Udc) 30 ml PO DAILY PRN PRN PRN Reason: Constipation Melatonin (Melatonin 3 Mg Tablet) 3 mg PO QHS PRN PRN PRN Reason: INSOMNIA Morphine Sulfate (Morphine 2 Mg/Ml Syringe) 2 mg IV Q3H PRN PRN PRN Reason: Pain Score 6-10 Nitroglycerin (Nitroglycerin (Inpatient Use) 0.4 Mg Tab.Subl) 0.4 mg SUBLINGUAL Q5M PRN PRN Reason: CARDIAC/CHEST PAIN Non-Formulary Medication (Pitavastatin Calcium) 2 mg PO QHS RK Ondansetron HCl (Ondansetron 4 Mg/2 Ml Vial) 4 mg IV Q8H PRN PRN PRN Reason: NAUSEA/VOMITING Oxycodone HCl (Oxycodone 5 Mg Tablet) 5 mg PO Q4H PRN PRN PRN Reason: Pain Score 4-5 Pantoprazole Sodium (Pantoprazole Sodium 40 Mg Tablet) 40 mg PO DAILY [facility] Last Admin: 06/01/20 08:28 Dose: 40 mg Documented by: Prochlorperazine Edisylate (Prochlorperazine 10 Mg/2 Ml Vial) 5 mg IV Q4H PRN PRN PRN Reason: Breakthrough Nausea/Vomiting Psyllium Hydrophilic Mucilloid (Psyllium 1 Packet) 1 packet PO DAILY PRN PRN PRN Reason: Constipation Senna/Docusate Sodium (Senna/Docusate Sodium 1 Tablet) 2 tablet PO BID PRN PRN PRN Reason: Constipation Sodium Chloride (0.9% Saline Lock 10 Ml Syringe) 10 - 40 ml IV UD PRN PRN Reason: Port-a-Cath (VAD) Flush Sodium Chloride (0.9 % Nacl (Sterile) Posiflush 10 Ml) 10 - 40 ml IV UD PRN PRN Reason: Port access or dressing change Throat Lozenges (Benzocaine/Menthol 1 Lozenge) 1 lozenge MUCOUS MEM Q2H PRN PRN PRN Reason: SORE THROAT Medical Necessity - Tobacco Use Smoking Status: Never smoker Tobacco Use: Non-smoker Assessment/Plan All Active Problems (Last Reviewed 05/30/20 @ 09:06 by Dixie Gomez) Encounter for adjustment and management of vascular access device (Acute) Diarrhea (Acute) Hypotension (Acute) Urinary tract infection (Acute) Patient on palliative antineoplastic chemotherapy (Acute) Sepsis (Acute) Sinus tachycardia by electrocardiogram (Acute) #Sepsis due to UTI * She feels much better. Fever has resolved. WBC is 1.8 today likely due to chemotherapy. * On IV meropenem * urine culture showed no growth * continue gentle hydration with IVF * # Non Hodgkin's lymphoma * Stable. Follows with Dr. Boss. Last had chemotherapy 2 days ago. * To follow-up with oncology on outpatient basis. # Hypertension: BP meds held on admission o/a of low BP. # Hyperlipidemia: on statin # Pancytopenia * platelets are 52, Hb is 8.4 and wbc is 1.8 * This likely from lymphoma and chemotherapy * will monitor Inpatient E&M: 28414 Subs Hosp L2
[2020-06-01] MEDS: Aspirin E.C. 81 MG Tablet PO (20:58)
[2020-06-01] MEDS: PITAVASTATIN CALCIUM 2 MG PO (20:58)
[2020-06-02] VITALS (9 sets, daily range): BP systolic 116–131; BP diastolic 57–65; PULSE 77–95; RESP 12–17; TEMP 36.7–37.3; O2SAT 94–96
[2020-06-02 06:31] LABS: Absolute Lymphocyte Count 0.29 X10^3/uL (0.83-4.51); Basophil# 0.01 X10^3/uL; Basophil% 0.6 % (0-1); Eosinophil# 0.38 X10^3/uL; Eosinophils% 21.6 % (0-5); Hematocrit 28.5 % (37-47); Hemoglobin 8.7 g/dL (12.0-15.0); Lymphocyte # 0.29 X10^3/ul (4.0); Lymphocyte % 16.5 % (19-41); Mean Corp Hgb Conc 30.5 g/dL (32-36); Mean Corpuscular Hgb 25.7 pg (27.0-32.0); Mean Corpuscular Volume 84.3 fL (81-99); Mean Platelet Vol. 9.4 fl (6.2-12.0); Monocyte# 0.11 X10^3/uL; Monocyte% 6.3 % (0-10); NRBC Flagged by Analyzer 0 % (0-5); Neutrophil # 0.96 X10^3/uL (2.7-7.7); Neutrophil % 54.4 % (47-70); POSITIVE COUNT YES; POSITIVE DIFFERENTIAL YES; POSITIVE MORPHOLOGY YES; Platelet Count 67 K/mm3 (150-450); RBC Distribution Width CV 20.6 % (11.6-14.6); RBC Distribution Width SD 62.8 fl (35.1-43.9); Red Blood Count 3.38 M/mm3 (4.2-5.4); White Blood Count 1.8 K/mm3 (4.4-11.0)
[2020-06-02 06:34] LABS: Differential Indicated SCAN CRITERIA MET
[2020-06-02 06:56] LABS: Anion Gap 4 (5-15); BUN 16 mg/dL (7-18); BUN/Creat Ratio 22.3 RATIO (10-20); Calcium,Total 8.6 mg/dL (8.5-10.1); Chloride 107 mmol/L (98-107); Creatinine, Serum 0.72 mg/dL (0.55-1.02); EST Glomerular Filtration Rate 86 mL/min (>60); Est Glom Filt Rate - Afr Amer 104 mL/min (>60); Estimated Creatinine Clearance 47.78 ml/min; Glucose 83 mg/dL (74-106); Potassium 4.2 mmol/L (3.5-5.1); Sodium Level 140 mmol/L (136-145)
[2020-06-02] MEDS: Fluticasone 0.05% 1 SPRAY NASAL.SRY NASAL (08:40)
[2020-06-02] MEDS: Acyclovir 200 MG Capsule 400 MG PO (08:41)
[2020-06-02] MEDS: Enoxaparin 40 MG/0.4 ML Syringe SC (08:41)
[2020-06-02] MEDS: Pantoprazole Sodium 40 MG Tablet PO (08:42)
[2020-06-02] MEDS: Loratadine 10 MG Tablet PO (08:42)
--- NOTE | 2020-06-02 11:34 | DCINST_ITS ---
- Discharge Diagnoses Current Active Problems: Current Active and Chronic Problems (Last Reviewed 05/30/20 @ 09:06 by Dixie Gomez) Splenomegaly (Chronic) Lymphadenopathy (Chronic) Mantle cell lymphoma (Chronic) Hypotension (Acute) Urinary tract infection (Acute) Patient on palliative antineoplastic chemotherapy (Acute) Sepsis (Acute) Sinus tachycardia by electrocardiogram (Acute) HTN (hypertension) (Chronic) HLD (hyperlipidemia) (Chronic) You will use the following diet at home:: Cardiac Your food should be the consistency of: Regular Your liquids should be the consistency of: Regular/Thin Discharge Activity: Return to Normal Activity Weight Bearing Status: Weight bearing as tolerated Call your doctor if you observe: Fever of 101 or Higher, Shortness of breath, Dizziness, Fainting spells Instructions: ED Bladder Infection, Female (Adult) Allergies/Adverse Reactions: Allergies azithromycin Allergy (Severe, Verified 05/31/20 13:48) Anaphylaxis cefdinir Allergy (Severe, Verified 05/31/20 13:48) Anaphylaxis fluvastatin Allergy (Severe, Verified 05/31/20 13:48) Anaphylaxis hyoscyamine Allergy (Severe, Verified 05/31/20 13:48) Anaphylaxis ofloxacin Allergy (Severe, Verified 05/31/20 13:48) Anaphylaxis Penicillins Allergy (Severe, Verified 05/31/20 13:48) Rash rosuvastatin Allergy (Severe, Verified 05/31/20 13:48) Anaphylaxis sulfanilamide Allergy (Severe, Verified 05/31/20 13:48) Anaphylaxis tetracycline Allergy (Severe, Verified 05/31/20 13:48) Anaphylaxis Medications to take at Discharge Ascorbic Acid [Vitamin C] 500 mg PO DAILY@0800 03/17/20 Aspirin [Adult Low Dose Aspirin EC] 81 mg PO QHS 03/17/20 Biotin 5,000 mcg PO DAILY 03/17/20 Cholecalciferol (VIT D3) [Vitamin D3] 1,000 unit PO DAILY 03/17/20 Fluticasone Propionate [Flonase Allergy Relief] 9.9 ml NS DAILY 03/17/20 Omeprazole [Prilosec] 40 mg PO DAILY 03/17/20 Pitavastatin Calcium [Livalo] 2 mg PO QHS 03/17/20 Irbesartan [Avapro] 300 mg PO DAILY 03/21/20 Acyclovir 400 mg PO BID 05/31/20 Levocetirizine Dihydrochloride [Allergy Relief] 5 mg PO DAILY 05/31/20 Multivit-Min/Iron/Folic/Lutein [Centrum Silver Women Tablet] 1 tab PO DAILY 05/31/20 Sodium Chloride [Saline Nasal [place]] 30 ml NS QHS 05/31/20 Primary Care Physician: Michelle Cummins DO [Primary Care Provider] - Please follow up with your Primary Care Physician in: 2-3 weeks Test Results: Test results from this visit will be discussed in further detail at your follow- up appointment, if applicable. Please Follow Up With: Rachna Ma MD When: 1-2 weeks Proposed Discharge Date: 06/02/20
--- NOTE | 2020-06-02 11:37 | PCM.DC.SUM ---
Discharge Date and Diagnosis - Problem List Patient Problems: Active and Suspected Problems (Last Reviewed 05/30/20 @ 09:06 by Dixie Gomez) Hypotension (Acute) Urinary tract infection (Acute) Patient on palliative antineoplastic chemotherapy (Acute) Sepsis (Acute) Sinus tachycardia by electrocardiogram (Acute) Date of Admission: 05/31/20 Date of Discharge: 06/02/20 - Primary Discharge Diagnosis Acute Problems: Active Problems (Last Reviewed 05/30/20 @ 09:06 by Dixie Gomez) Hypotension (Acute) Urinary tract infection (Acute) Patient on palliative antineoplastic chemotherapy (Acute) Sepsis (Acute) Sinus tachycardia by electrocardiogram (Acute) - Secondary Discharge Diagnosis Chronic Problems: Chronic Problems (Last Reviewed 05/30/20 @ 09:06 by Dixie Gomez) Splenomegaly (Chronic) Lymphadenopathy (Chronic) Mantle cell lymphoma (Chronic) HTN (hypertension) (Chronic) HLD (hyperlipidemia) (Chronic) Hospital Course and Treatment Imaging Results: Diagnostic Data Chest X-Ray 05/31/20 13:48 IMPRESSION: No acute abnormality is seen. Electronically Signed: Shabbir Hunter, at 14:06 EST , Service support , Operations: None Procedures: None Summary of Care Provided: The patient is a 69 year old F with a past medical history of non-Hodgkin's lymphoma and mantle cell lymphoma who is undergoing chemotherapy, hypertension and hyperlipidemia. She was admitted through the ED on 05/31/2020 with complaint of fever. She had had her last dose of chemotherapy on the day prior to admission started feeling unwell after chemotherapy. She complained of generalized body aches and felt very weak and also developed a fever. She had a temperature peaking at 102 Fahrenheit and also had chills so her oncologist sent her to the ED. She did admit to frequency and urinalysis done showed evidence of UTI. Was admitted and managed for UTI and started on IV meropenem due to extensive allergies to virtually all antibiotics above meropenem. Patient felt much better with IV meropenem. Urine cultures came back growing mixed positive and gram-negative organisms. In light of her extensive antibiotic resistance patient was given IV meropenem from 05/31/2020 to 06/02/2020. She felt much better and was discharged home on 06/02/2020. She is to follow-up with her primary care doctor and her oncologist. She is seen and examined prior to discharge. She was eager to be discharged and had no complaints. Review of symptoms otherwise negative. Labs and vitals reviewed. Home medication reviewed and reconciled. O/E: Vital Signs Temp Pulse Resp BP Pulse Ox 98.1 F 95 13 117/60 95 06/02/20 11:00 06/02/20 11:00 06/02/20 11:06/02/20 11:00 06/02/20 11:00 [] General: Alert, Oriented x3, Cooperative, No apparent distress HEENT: Atraumatic, PERRLA, EOMI, Normocephalic Oral: Dry Mucosa Neck: Supple, No JVD, Negative Carotid Bruits Lungs: Clear to auscultation, Normal air movement, No rhonchi, No wheeze, No rales Cardiovascular: Regular Rhythm, Normal S1, Normal S2, No murmurs, regular rate Abdomen: Bowel Sounds Present, Soft, Non Tender, Non-Distended, No Hepato-splenomegaly Extremities: No edema, Capillary Refill Less than 3 Seconds Skin: No rashes, No breakdown Musculoskeletal: No Tenderness to Palpation of Joints or Extremities, has chemotherapy port in chest Lymphatic: No Cervical, Supraclavicular, or Inguinal Adenopathy Neurological: Cranial nerves II-XII grossly intact, Neuro grossly intact, Motor Exam 5/5 strength throughout Psych/Mental Status: Normal Affect, Appropriate, Alert and oriented to time, place, person, mood and affect Plan is for discharge home today. Patient Problems: Active and Suspected Problems (Last Reviewed 05/30/20 @ 09:06 by Dixie Gomez) Hypotension (Acute) Urinary tract infection (Acute) Patient on palliative antineoplastic chemotherapy (Acute) Sepsis (Acute) Sinus tachycardia by electrocardiogram (Acute) - Physical Exam Vitals/I&O's: Vital Signs Temp Pulse Resp BP Pulse Ox 98.1 F 95 13 117/60 95 06/02/20 11:00 06/02/20 11:00 06/02/20 11:00 06/02/20 11:00 06/02/20 11:00 Oxygen Delivery Method Room Air Weight: 141 lb 15.643 oz Body Mass Index (BMI) 23.6 Intake and Output for Last 24 Hours 05/31/20 06/01/20 06/02/20 23:59 23:59 23:59 Intake Total 2271.67 / 2271.67 2973.33 / 2973.33 1425.5 / 1425.5 Balance 2271.67 / 2271.67 2973.33 / 2973.33 1425.5 / 1425.5 Microbiology Past 72 Hours 05/31/20 14:00 Urine, Clean Catch Urine Culture - Final Mixed Gram Pos & Gram Neg Org Laboratory Results 06/01/20 06:05: Diff Path Review Reviewed 06/02/20 06:18: WBC 1.8 L, RBC 3.38 L, Hgb 8.7 L, Hct 28.5 L, MCV 84.3, MCH 25.7 L, MCHC 30.5 L, RDW Std Deviation 62.8 H, RDW Coeff of Darvin 20.6 H, Plt Count 67 L, MPV 9.4, Immature Gran % (Auto) 0.600, Neut % (Auto) 54.4, Lymph % (Auto) 16.5 L, [place] % (Auto) 6.3, Eos % (Auto) 21.6 H, Baso % (Auto) 0.6, Absolute Neuts (auto) 1.0 L, Absolute Lymphs (auto) 0.29 L, Nucleated RBC % 0, Diff Path Review May 06/02/20 06:18: Sodium 140, Potassium 4.2, Chloride 107, Carbon Dioxide 29.0, Anion Gap 4 L, BUN 16, Creatinine 0.72, Estim Creat Clear Calc 47.78, Est GFR (MDRD) Af Amer 104, Est GFR (MDRD) Non-Af 86, BUN/Creatinine Ratio 22.3 H, Glucose 83, Calcium 8.6 Current Medications Acetaminophen (Acetaminophen 325 Mg Tablet) 650 mg PO Q6H PRN PRN PRN Reason: Pain Score 1-10/Temp > 100.7 F Acyclovir (Acyclovir 200 Mg Capsule) 400 mg PO BID RK Last Admin: 06/02/20 08:41 Dose: 400 mg Documented by: Al Hydroxide/Mg Hydroxide (Mag Hydrox/Al Hydrox/Simeth 30 Ml Udc) 30 ml PO Q6H PRN PRN PRN Reason: Gastric Burning Albuterol Sulfate (Albuterol 2.5 Mg/3 Ml Vial.Neb.) 2.5 mg INHALATION Q2H PRN PRN PRN Reason: Dyspnea, wheezing Aspirin (Aspirin E.C. 81 Mg Tablet) 81 mg PO QHS [facility] Last Admin: 06/01/20 20:58 Dose: 81 mg Documented by: Enoxaparin Sodium (Enoxaparin 40 Mg/0.4 Ml Syringe) 40 mg SC DAILY [facility] Last Admin: 06/02/20 08:41 Dose: 40 mg Documented by: Fluticasone Propionate (Fluticasone 0.05% 1 [place] Nasal.Sry) 1 spray NASAL DAILY [facility] Last Admin: 06/02/20 08:40 Dose: 1 spray Documented by: Guaifenesin (Guaifenesin 10 Ml Udc (200mg/10ml)) 20 ml PO Q4H PRN PRN PRN Reason: COUGH Heparin Sodium (Beef Lung) (Heparin Pf Lock 10 Units/Ml 50 Units/5 Ml Syringe) 50 units IV UD PRN PRN Reason: Port-a-Cath (VAD)Heparin Flush Sodium Chloride () 1,000 mls @ 100 mls/hr IV .Q10H [facility] Last Infusion: 06/02/20 08:50 Dose: Infused Documented by: Meropenem 1 gm/ Sodium (Chloride) 120 mls @ 33 mls/hr IV Q12 [facility] Last Infusion: 06/02/20 08:55 Dose: 33 mls/hr Documented by: Sodium Chloride () 250 mls @ 15 mls/hr IV .[id number] PRN PRN Reason: Saline Flush Sodium Chloride () 250 mls @ 15 mls/hr IV .[id number] PRN PRN Reason: Additional IVPB Infusion Loratadine (Loratadine 10 Mg Tablet) 10 mg PO DAILY [facility] Last Admin: 06/02/20 08:42 Dose: 10 mg Documented by: Magnesium Hydroxide (Magnesium Hydroxide 30 Ml Udc) 30 ml PO DAILY PRN PRN PRN Reason: Constipation Melatonin (Melatonin 3 Mg Tablet) 3 mg PO QHS PRN PRN PRN Reason: INSOMNIA Morphine Sulfate (Morphine 2 Mg/Ml Syringe) 2 mg IV Q3H PRN PRN PRN Reason: Pain Score 6-10 Nitroglycerin (Nitroglycerin (Inpatient Use) 0.4 Mg Tab.Subl) 0.4 mg SUBLINGUAL Q5M PRN PRN Reason: CARDIAC/CHEST PAIN Ondansetron HCl (Ondansetron 4 Mg/2 Ml Vial) 4 mg IV Q8H PRN PRN PRN Reason: NAUSEA/VOMITING Oxycodone HCl (Oxycodone 5 Mg Tablet) 5 mg PO Q4H PRN PRN PRN Reason: Pain Score 4-5 Pantoprazole Sodium (Pantoprazole Sodium 40 Mg Tablet) 40 mg PO DAILY RK Last Admin: 06/02/20 08:42 Dose: 40 mg Documented by: Prochlorperazine Edisylate (Prochlorperazine 10 Mg/2 Ml Vial) 5 mg IV Q4H PRN PRN PRN Reason: Breakthrough Nausea/Vomiting Psyllium Hydrophilic Mucilloid (Psyllium 1 Packet) 1 packet PO DAILY PRN PRN PRN Reason: Constipation Senna/Docusate Sodium (Senna/Docusate Sodium 1 Tablet) 2 tablet PO BID PRN PRN PRN Reason: Constipation Sodium Chloride (0.9% Saline Lock 10 Ml Syringe) 10 - 40 ml IV UD PRN PRN Reason: Port-a-Cath (VAD) Flush Sodium Chloride (0.9 % Nacl (Sterile) Posiflush 10 Ml) 10 - 40 ml IV UD PRN PRN Reason: Port access or dressing change Throat Lozenges (Benzocaine/Menthol 1 Lozenge) 1 lozenge MUCOUS MEM Q2H PRN PRN PRN Reason: SORE THROAT Discharge Diet: Low fat/ Low Cholesterol Discharge Activity: Return to Normal Activity Weight Bearing Status: Weight bearing as tolerated Call your doctor if you observe: Fever of 101 or Higher, Shortness of breath, Dizziness, Fainting spells Home Medications: Medications to take at Discharge Ascorbic Acid [Vitamin C] 500 mg PO DAILY@0800 03/17/20 Aspirin [Adult Low Dose Aspirin EC] 81 mg PO QHS 03/17/20 Biotin 5,000 mcg PO DAILY 03/17/20 Cholecalciferol (VIT D3) [Vitamin D3] 1,000 unit PO DAILY 03/17/20 Fluticasone Propionate [Flonase Allergy Relief] 9.9 ml NS DAILY 03/17/20 Omeprazole [Prilosec] 40 mg PO DAILY 03/17/20 Pitavastatin Calcium [Livalo] 2 mg PO QHS 03/17/20 Irbesartan [Avapro] 300 mg PO DAILY 03/21/20 Acyclovir 400 mg PO BID 05/31/20 Levocetirizine Dihydrochloride [Allergy Relief] 5 mg PO DAILY 05/31/20 Multivit-Min/Iron/Folic/Lutein [Centrum Silver Women Tablet] 1 tab PO DAILY 05/31/20 Sodium Chloride [Saline Nasal [place]] 30 ml NS QHS 05/31/20 Primary Care Physician: Michelle Cummins DO [Primary Care Provider] - Please follow up with your Primary Care Physician in: 2-3 weeks Please Follow Up With: Rachna Ma MD When: 1-2 weeks Patient Instructions: ED Bladder Infection, Female (Adult) Disposition: Home Minutes spent on discharge:: 35 Patient Condition:: Stable Medical Necessity - Tobacco Use Smoking Status: Never smoker Tobacco Use: Non-smoker Meaningful Use Info Meaningful Use Diagnoses (Choose all that apply): None applicable Inpatient E&M: 93630 [facility] Hosp
--- NOTE | 2020-06-02 12:14 | PHA.DC.MR ---
Pharmacy Service has performed discharge medication reconciliation for this patient. The patient's discharge medication list was reviewed for discrepancies and discrepancies were resolved. Home Medications Ascorbic Acid [Vitamin C] 500 mg PO DAILY@0800 03/17/20 Aspirin [Adult Low Dose Aspirin EC] 81 mg PO QHS 03/17/20 Biotin 5,000 mcg PO DAILY 03/17/20 Cholecalciferol (VIT D3) [Vitamin D3] 1,000 unit PO DAILY 03/17/20 Fluticasone Propionate [Flonase Allergy Relief] 9.9 ml NS DAILY 03/17/20 Omeprazole [Prilosec] 40 mg PO DAILY 03/17/20 Pitavastatin Calcium [Livalo] 2 mg PO QHS 03/17/20 Irbesartan [Avapro] 300 mg PO DAILY 03/21/20 Acyclovir 400 mg PO BID 05/31/20 Levocetirizine Dihydrochloride [Allergy Relief] 5 mg PO DAILY 05/31/20 Multivit-Min/Iron/Folic/Lutein [Centrum Silver Women Tablet] 1 tab PO DAILY 05/31/20 Sodium Chloride [Saline Nasal [place]] 30 ml NS QHS 05/31/20
[2020-06-02 12:45] LABS: Pathologist Review Reviewed
[2020-06-02] MEDS: 0.9% Normal Saline 1,000 ML 100 ML IV (14:07)
[2020-06-02] MEDS: 0.9% Saline Lock 10 ML Syringe IV (19:08)
--- NOTE | 2020-06-05 15:28 | CASEMGMT ---
MILLER LOPEZ F/U Phone Call LACE: 10 Strata: 3 Discharge date: 06/02/2020 Call date: 06/05/2020 Call time: 1530 Admission dx: Sepsis, UTI, hypotensive Pt states is 'glad to be home' and states no concerns at this time. Pt states no questions regarding discharge instructions/medications at this time. Pt states already had phone f/u today. Pt states no suggestions for [facility] at this time and states 'The nurses, Yuan and Jeffy, were wonderful!' Pt voices no further questions/concerns/needs at this time. [place] MILLER LOPEZ
== END 2020-06-02 19:20 | disposition home or self-care (01) | DRG 871 ==
LOC: ED 14:47 → PCU 17:19
PROVIDERS: Admitting Provider Family Medicine; Emergency Provider Emergency Medicine; PCP Internal Medicine; Visit Provider Student in an Organized Health Care Education/Training Program
DX: A41.9 Sepsis, unspecified organism (principal); D61.810 Antineoplastic chemotherapy induced pancytopenia; N39.0 Urinary tract infection, site not specified; C83.17 Mantle cell lymphoma, spleen; R16.1 Splenomegaly, not elsewhere classified; Z51.11 Encounter for antineoplastic chemotherapy; Z00.00 Encounter for general adult medical examination without abnormal findings; I95.9 Hypotension, unspecified; I10 Essential (primary) hypertension; K21.9 Gastro-esophageal reflux disease without esophagitis; M19.90 Unspecified osteoarthritis, unspecified site; E78.2 Mixed hyperlipidemia; T45.1X5A Adverse effect of antineoplastic and immunosuppressive drugs, initial encounter; R00.0 Tachycardia, unspecified
CPT/HCPCS: 36415; 36591; 71045; 80048; 80053; 81001; 83605; 83615; 83735; 84100; 85025; 85610; 85730; 87040; 87086; 87088; 87635; 94642; 96367; 96375; 96413; 96415; 96417; 97802; 99251; 99283; J2185; J7030; J7040; J7050; J9034; A4216; G0463; J2469; J3490; Q5115; U0002

== ENCOUNTER → 2020-06-26 11:12 | Outpatient (CLI) | payer MEDICARE, OTHER, SELFPAY ==
[2020-05-16 09:03] VITALS: BMI 24.0
[2020-06-12 10:32] VITALS: BMI 23.9
== END ==
PROVIDERS: PCP Internal Medicine; Referring Provider Nurse Practitioner Family; Visit Provider Nurse Practitioner Family
DX: C83.10 Mantle cell lymphoma, unspecified site (principal); Z29.8 Encounter for other specified prophylactic measures
CPT/HCPCS: 94642

== ENCOUNTER → 2020-07-18 12:38 | Outpatient (CLI) | payer MEDICARE, OTHER, SELFPAY ==
[2020-06-27 10:32] VITALS: BMI 24.2
[2020-07-11 10:06] VITALS: BMI 24.3
--- NOTE | 2020-07-18 12:40 | CT_ITS ---
STUDY: CT CHEST WITH CONTRAST REASON FOR EXAM: Female, 69 years old. RESPONSE TO TREATMENT, MANTLE CELL LYMPHOMA RADIATION DOSAGE (If Supplied By Facility): CTDIvol = ( 9.58 ) mGy, DLP = ( 984.55 ) mGycm TECHNIQUE: Transaxial imaging was performed following intravenous administration of IV 100mL Isovue-300. Multiplanar coronal and sagittal images were reformatted. Individualized dose optimization techniques were used for this CT. COMPARISON: No comparison images were provided. FINDINGS: There is a right-sided portacatheter tip is in the superior vena cava. There is no visualized focal consolidation pleural effusion or pulmonary edema. There is no demonstrated pleural abnormality. There is mild cardiac enlargement. There are a few nonspecific subcentimeter mediastinal lymph nodes. Normal hilar regions. Normal enhanced pulmonary arteries. Aorta is minimally tortuous partially calcified. The bones are osteopenic. There is mild multilevel lumbar lordosis. There are small bilateral nonspecific axillary lymph nodes. The upper abdomen demonstrates hepatomegaly, likely postoperative change in the gallbladder fossa. CT/Chest WITH Contrast IMPRESSION: No visualized pulmonary infiltrate, mass or or significant mediastinal lymphadenopathy. Partial visualization of hepatomegaly splenomegaly within the abdomen. Port-A-Cath tip is in the superior vena cava. Degenerative changes in the thoracolumbar spine. Electronically Signed: Kiya Cotton MD at 6:37 EST Tel , Service support ,
--- NOTE | 2020-07-18 12:40 | CT_ITS ---
STUDY: CT SOFT TISSUE NECK WITH CONTRAST REASON FOR EXAM: Female, 69 years old. RESPONSE TO TREATMENT, MANTLE CELL LYMPHOMA RADIATION DOSAGE (If Supplied By Facility): CTDIvol = ( 9.58 ) mGy, DLP = ( 984.55 ) mGycm TECHNIQUE: The patient was scanned in a multi-detector CT scanner. High resolution transaxial imaging was performed following intravenous administration of IV 100mL Isovue-300. Sagittal and coronal images were reconstructed. The anterior aspect of the neck soft tissues predominantly the facial bones sinuses are available for review. Individualized dose optimization techniques were used for this CT. COMPARISON: CT angiogram neck July 30, 2016 FINDINGS: Normal bilateral parotid glands. Normal bilateral mfg assoc spaces. Normal bilateral parapharyngeal spaces. Normal bilateral carotid spaces. Normal bilateral sublingual and submandibular glands and spaces. Normal visualized nasopharynx. Normal retropharyngeal space. Normal perivertebral space. Normal visualized bilateral faucial tonsils. The visualized tongue, tongue base and oropharynx are normal. There is no particular enlarged or dominant neck soft tissue lymph node. There is no demonstrated solid or cystic mass lesion. There is no abnormal contrast enhancement. Normal epiglottis, bilateral vallecula and hypopharynx. The pre-epiglottic and paraglottic adipose spaces are normal. Normal visualized bilateral piriform sinuses, aryepiglottic folds, vocal cords, and arytenoid-cricoid articulations. Normal subglottic trachea. Normal bilateral lobes of the thyroid gland. Normal visualized pulmonary apices. Normal partially visualized paranasal sinuses. There is multilevel disc space narrowing spondylosis. At the level of C1-C2 there is advanced degenerative change of the left side C1-2 articulation with slight loss of height in the left lateral masses C1. This is chronic in appearance. There is multilevel disc space narrowing spondylosis multilevel mild primarily left-sided neural foraminal narrowing. CT/Soft Tissue Neck WITH Contrast IMPRESSION: No visualized large area of lymphadenopathy or mass. There is a right-sided portacatheter tip is seen within the right internal jugular vein. Degenerative changes of the thoracolumbar spine especially at the level of C1-C2. Electronically Signed: Kiya Cotton MD at 6:49 EST Tel , Service support ,
--- NOTE | 2020-07-18 12:40 | CT_ITS ---
STUDY: CT ABDOMEN AND PELVIS WITH CONTRAST REASON FOR EXAM: Female, 69 years old. RESPONSE TO TREATMENT, MANTLE CELL LYMPHOMA RADIATION DOSAGE (If Supplied By Facility): CTDIvol = ( 9.58 ) mGy, DLP = ( 984.55 ) mGycm TECHNIQUE: Transaxial images were obtained from the dome of the diaphragm to the symphysis pubis without oral contrast. IV 100mL Isovue-300 was administered. Sagittal and coronal images were reconstructed. Individualized dose optimization techniques were used for this CT. COMPARISON: No comparison images were provided. FINDINGS: The visualized lung bases are unremarkable. There is borderline cardiac enlargement. The liver appears mildly enlarged. There are surgical clips in the gallbladder fossa consistent with a prior cholecystectomy. The spleen is homogeneous. The spleen measures 15.0 x 8.0 x 13.2 cm. There is a engorged appearance of the venous structures. Normal pancreas. Normal bilateral adrenal glands. There is a 2 mm stone right kidney no evidence of hydronephrosis. There is small left-sided peripelvic cysts. There is mild left pelviectasis. There is a decompressed mildly thick-walled appearance of the stomach. No mildly distended loops of small bowel in the abdomen. There is moderate stool in the colon from the cecum to the rectum. There is tortuosity diverticulosis without diverticulitis. There is non-visualization of the appendix. There is diffuse atherosclerotic calcification of the abdominal aorta, without a demonstrated aneurysm. Normal inferior vena cava. There are a few nonspecific subcentimeter retroperitoneal lymph nodes. There are few small mesenteric lymph nodes. Normal urinary bladder. There is postoperative change status post hysterectomy. There is a small umbilical hernia containing fat. There are few nonspecific subcentimeter groin lymph nodes. There is multilevel spondylosis. The level of the posterior aspect of L2. There is mildly inhomogeneous appearance of the bony mineralization is nonspecific. At L2-L3 there is severe disc space narrowing moderate neural foramina narrowing mild central stenosis. At L5-S1 there is disc space narrowing and vacuum phenomenon. CT/Abdomen/Pelvis W IV Cont ONLY IMPRESSION: Moderate to severe splenomegaly. Status post hysterectomy. Status post cholecystectomy. Minimal left pelviectasis. Constipation. Diverticulosis no diverticulitis. Degenerative changes in the thoracolumbar spine. At the time of this study there were no available comparison images provided to evaluate for interval change. There is a decompressed mildly thick walled appearance of the stomach for which in the appropriate setting could represent gastritis versus peristalsis. The appendix is not visualized. Electronically Signed: Kiya Cotton MD at 5:39 EST Tel , Service support ,
== END ==
PROVIDERS: PCP Internal Medicine; Referring Provider Internal Medicine Hematology & Oncology; Visit Provider Internal Medicine Hematology & Oncology
DX: C44.02 Squamous cell carcinoma of skin of lip (principal); C83.10 Mantle cell lymphoma, unspecified site; R59.1 Generalized enlarged lymph nodes; R16.1 Splenomegaly, not elsewhere classified
CPT/HCPCS: 70491; 71260; 74177; Q9967; A4216

== ENCOUNTER → 2020-07-24 11:08 | Outpatient (CLI) | payer MEDICARE, OTHER, SELFPAY ==
[2020-05-16 09:03] VITALS: BMI 24.0
[2020-07-11 10:06] VITALS: BMI 24.3
== END ==
PROVIDERS: PCP Internal Medicine; Referring Provider Nurse Practitioner Family; Visit Provider Nurse Practitioner Family
DX: C83.10 Mantle cell lymphoma, unspecified site (principal); Z29.8 Encounter for other specified prophylactic measures
CPT/HCPCS: 94642

== ENCOUNTER → 2020-08-21 11:19 | Outpatient (CLI) | payer MEDICARE, OTHER, SELFPAY ==
[2020-05-16 09:03] VITALS: BMI 24.0
[2020-08-08 10:17] VITALS: BMI 25.0
== END ==
PROVIDERS: PCP Internal Medicine; Referring Provider Nurse Practitioner Family; Visit Provider Nurse Practitioner Family
DX: C83.10 Mantle cell lymphoma, unspecified site (principal); Z29.8 Encounter for other specified prophylactic measures
CPT/HCPCS: 94642

== ENCOUNTER → 2020-09-18 11:12 | Outpatient (CLI) | payer MEDICARE, OTHER, SELFPAY ==
[2020-06-12 10:32] VITALS: BMI 23.9
[2020-09-07 08:18] VITALS: BMI 25.9
== END ==
PROVIDERS: PCP Internal Medicine; Referring Provider Nurse Practitioner Family; Visit Provider Nurse Practitioner Family
DX: C83.10 Mantle cell lymphoma, unspecified site (principal); Z29.8 Encounter for other specified prophylactic measures
CPT/HCPCS: 94642

== ENCOUNTER → 2020-10-16 11:08 | Outpatient (CLI) | payer MEDICARE, OTHER, SELFPAY ==
[2020-06-12 10:32] VITALS: BMI 23.9
[2020-10-03 09:16] VITALS: BMI 26.5
[2020-10-16] MEDS: Pentamidine Isethionate 300 MG, Water For Injection,Sterile 6 ML INHALATION (11:41)
== END ==
PROVIDERS: PCP Internal Medicine; Referring Provider Nurse Practitioner Family; Visit Provider Nurse Practitioner Family
DX: C83.10 Mantle cell lymphoma, unspecified site (principal); Z29.8 Encounter for other specified prophylactic measures
CPT/HCPCS: 94642

== ENCOUNTER → 2020-11-14 08:11 | Outpatient (CLI) | payer MEDICARE, OTHER, SELFPAY ==
[2020-07-11 10:06] VITALS: BMI 24.3
[2020-10-03 09:16] VITALS: BMI 26.5
== END ==
PROVIDERS: PCP Internal Medicine; Referring Provider Nurse Practitioner Family; Visit Provider Nurse Practitioner Family
DX: C83.10 Mantle cell lymphoma, unspecified site (principal); Z45.2 Encounter for adjustment and management of vascular access device
CPT/HCPCS: 36593; 80053; 83615; 85025; 94642; J2997; A4216

== ENCOUNTER 2020-11-16 14:37 | Outpatient (RCR) | payer MEDICARE, OTHER, SELFPAY ==
[2020-11-14 10:29] VITALS: BMI 27.6
== END 2021-01-05 23:59 ==
LOC: IMMUN 14:37
PROVIDERS: PCP Internal Medicine; Visit Provider Family Medicine
DX: Z23 Encounter for immunization (principal)
CPT/HCPCS: 0001A; 91300

== ENCOUNTER → 2020-12-11 08:17 | Outpatient (CLI) | payer MEDICARE, OTHER, SELFPAY ==
[2020-07-11 10:06] VITALS: BMI 24.3
[2020-11-14 10:29] VITALS: BMI 27.6
== END ==
PROVIDERS: PCP Internal Medicine; Referring Provider Nurse Practitioner Family; Visit Provider Nurse Practitioner Family
DX: Z45.2 Encounter for adjustment and management of vascular access device (principal)
CPT/HCPCS: 94642; 96523

== ENCOUNTER → 2021-01-08 08:04 | Outpatient (CLI) | payer MEDICARE, OTHER, SELFPAY ==
[2020-07-11 10:06] VITALS: BMI 24.3
[2020-11-14 10:29] VITALS: BMI 27.6
[2021-01-08] MEDS: Pentamidine Isethionate 300 MG, Water For Injection,Sterile 6 ML INHALATION (08:25)
== END ==
PROVIDERS: PCP Internal Medicine; Referring Provider Nurse Practitioner Family; Visit Provider Nurse Practitioner Family
DX: C83.17 Mantle cell lymphoma, spleen (principal)
CPT/HCPCS: 94642

== ENCOUNTER → 2021-02-05 08:11 | Outpatient (CLI) | payer MEDICARE, OTHER, SELFPAY ==
[2020-07-11 10:06] VITALS: BMI 24.3
[2021-02-05] MEDS: Pentamidine Isethionate 300 MG, Water For Injection,Sterile 6 ML INHALATION (08:34)
== END ==
PROVIDERS: PCP Internal Medicine; Referring Provider Nurse Practitioner Family; Visit Provider Nurse Practitioner Family
DX: C83.17 Mantle cell lymphoma, spleen (principal)
CPT/HCPCS: 94642

== ENCOUNTER → 2021-02-08 12:43 | Outpatient (CLI) | payer MEDICARE, OTHER, SELFPAY ==
--- NOTE | 2021-02-08 12:44 | CT_ITS ---
INDICATION: RESTAGING LYMPHOMA EXAMINATION: CT Chest Abdomen And Pelvis W/ Contrast Injection TECHNIQUE: Images were obtained of the chest, abdomen and pelvis following IV contrast. A radiation dose optimization technique was used for this scan. IV Contrast dosage and agent: IV 100mL Isovue-300 COMPARISON: 07/18/2020 FINDINGS: Lungs: Unremarkable Mediastinum: The cardiomediastinal silhouette is not enlarged. No mediastinal, hilar or axillary adenopathy. Mild aortic arch and coronary artery calcifications. No obvious filling defect seen within the visualized pulmonary arteries. Right subclavian chest port with tip at the RA/SVC junction. Pleura: Unremarkable Liver: Unremarkable Gallbladder: Surgically absent. Spleen: Unremarkable Pancreas: Unremarkable Adrenal Glands: Unremarkable Kidneys: Unremarkable Vasculature: Mild scattered aortoiliac atherosclerotic calcifications. GI Tract: Scattered diverticula throughout the colon without evidence of inflammation. Lymphadenopathy: None Peritoneum: No ascites. Bladder: Unremarkable Reproductive organs: Unremarkable Bones/Soft tissues: Mild scattered degenerative changes of the visualized spine. CT/CT Chest, Abd, Pel w/Contrast IMPRESSION: No evidence of recurrent disease in the chest, abdomen or pelvis. Electronically Signed: Wesley Solorio MD at 20:43 EDT Tel , Service support ,
--- NOTE | 2021-02-08 12:44 | CT_ITS ---
INDICATION: RESTAGING LYMPHOMA EXAMINATION: CT Soft Tissue Neck W/ Contrast Injection TECHNIQUE: Helically acquired images were obtained of the neck following IV contrast. A radiation dose optimization technique was used for this scan. IV Contrast dosage and agent: 100 cc ISOVUE-300 COMPARISON: 07/18/2020. FINDINGS: NASOPHARYNX: Unremarkable. SUPRAHYOID NECK: Unremarkable oropharynx, oral cavity, parapharyngeal space, and retropharyngeal space. INFRAHYOID NECK: Unremarkable larynx, hypopharynx, and supraglottis. THYROID: No focal lesions. SALIVARY GLANDS: Unremarkable. LYMPH NODES: No cervical or supraclavicular lymphadenopathy. VASCULAR STRUCTURES: Unremarkable. VISUALIZED PORTIONS OF THE ORBITS, PARANASAL SINUSES, MASTOID AIR CELLS AND SKULL BASE: Unremarkable. BONES: Multilevel degenerative disc disease and spondylosis of the cervical spine. THORACIC INLET: Clear lung apices. CT/Soft Tissue Neck WITH Contrast IMPRESSION: No evidence of recurrent or metastatic disease in the neck. Electronically Signed: Wesley Solorio MD at 20:35 EDT Tel , Service support ,
== END ==
PROVIDERS: PCP Internal Medicine; Referring Provider Internal Medicine Hematology & Oncology; Visit Provider Internal Medicine Hematology & Oncology
DX: C83.10 Mantle cell lymphoma, unspecified site (principal)
CPT/HCPCS: 70491; 71260; 74177; Q9967

== ENCOUNTER → 2021-03-05 08:16 | Outpatient (CLI) | payer MEDICARE, OTHER, SELFPAY ==
[2020-07-11 10:06] VITALS: BMI 24.3
[2020-11-14 10:29] VITALS: BMI 27.6
[2021-03-05] MEDS: Pentamidine Isethionate 300 MG, Water For Injection,Sterile 6 ML INHALATION (08:45)
== END ==
PROVIDERS: PCP Internal Medicine; Referring Provider Nurse Practitioner Family; Visit Provider Nurse Practitioner Family
DX: C83.10 Mantle cell lymphoma, unspecified site (principal); Z79.2 Long term (current) use of antibiotics
CPT/HCPCS: 94642

== ENCOUNTER → 2021-04-02 08:17 | Outpatient (CLI) | payer MEDICARE, OTHER, SELFPAY ==
[2020-11-14 10:29] VITALS: BMI 27.6
== END ==
PROVIDERS: PCP Internal Medicine; Referring Provider Nurse Practitioner Family; Visit Provider Nurse Practitioner Family
DX: C83.17 Mantle cell lymphoma, spleen (principal)
CPT/HCPCS: 94642

== ENCOUNTER → 2021-04-30 08:10 | Outpatient (CLI) | payer MEDICARE, OTHER, SELFPAY ==
[2020-11-14 10:29] VITALS: BMI 27.6
== END ==
PROVIDERS: PCP Internal Medicine; Referring Provider Nurse Practitioner Family; Visit Provider Nurse Practitioner Family
DX: C83.17 Mantle cell lymphoma, spleen (principal)
CPT/HCPCS: 94642

== ENCOUNTER → 2021-05-28 12:39 | Outpatient (CLI) | payer MEDICARE, OTHER, SELFPAY ==
[2020-11-14 10:29] VITALS: BMI 27.6
[2021-05-28] MEDS: Pentamidine Isethionate 300 MG, Water For Injection,Sterile 6 ML INHALATION (13:01)
== END ==
PROVIDERS: PCP Internal Medicine; Referring Provider Nurse Practitioner Family; Visit Provider Nurse Practitioner Family
DX: C83.17 Mantle cell lymphoma, spleen (principal)
CPT/HCPCS: 94642

== ENCOUNTER 2021-06-25 11:23 | Outpatient (CLI) | payer MEDICARE, OTHER, SELFPAY ==
[2021-06-25] MEDS: Pentamidine Isethionate 300 MG, Water For Injection,Sterile 6 ML INHALATION (12:03)
== END 2021-06-25 23:59 | disposition short-term general hospital (02) ==
LOC: PSN 11:25
PROVIDERS: PCP Internal Medicine; Referring Provider Nurse Practitioner Family; Visit Provider Nurse Practitioner Family
DX: C83.17 Mantle cell lymphoma, spleen (principal)
CPT/HCPCS: 94642

== ENCOUNTER 2021-07-23 08:12 | Outpatient (CLI) | payer MEDICARE, OTHER, SELFPAY ==
[2021-07-23] MEDS: Pentamidine Isethionate 300 MG, Water For Injection,Sterile 6 ML INHALATION (08:43)
== END 2021-07-23 23:59 | disposition home or self-care (01) ==
LOC: PSN 08:13
PROVIDERS: PCP Internal Medicine; Referring Provider Nurse Practitioner Family; Visit Provider Nurse Practitioner Family
DX: C83.10 Mantle cell lymphoma, unspecified site (principal); Z79.2 Long term (current) use of antibiotics
CPT/HCPCS: 94642

== ENCOUNTER 2021-08-20 08:14 | Outpatient (CLI) | payer MEDICARE, OTHER, SELFPAY ==
[2021-08-20] MEDS: Pentamidine Isethionate 300 MG, Water For Injection,Sterile 6 ML INHALATION (08:30)
== END 2021-08-20 23:59 | disposition home or self-care (01) ==
LOC: PSN 08:14
PROVIDERS: PCP Internal Medicine; Referring Provider Nurse Practitioner Family; Visit Provider Nurse Practitioner Family
DX: C83.10 Mantle cell lymphoma, unspecified site (principal); Z79.2 Long term (current) use of antibiotics
CPT/HCPCS: 94642

== ENCOUNTER 2021-09-11 13:12 | Outpatient (CLI) | payer MEDICARE, OTHER, SELFPAY ==
--- NOTE | 2021-09-11 13:13 | CT_ITS ---
STUDY: CT CHEST, ABDOMEN T PELVIS WITH CONTRAST REASON FOR EXAM: Female, 70 years old. LYMPHOMA, ON RX RADIATION DOSAGE (If Supplied By Facility): CTDIvol = ( 13.05 ) mGy, DLP = ( 1595.13 ) mGycm TECHNIQUE: Transaxial imaging was performed following intravenous administration of IV 100mL Isovue-300. Individualized dose optimization techniques were used for this CT. COMPARISON: Comparison is made with prior study dated 02/08/2021. FINDINGS: CHEST A right-sided portacatheter is seen with the tip in the superior vena cava. Findings suggest mild scarring at the left lung base. There is no demonstrated pleural abnormality. Normal heart and pericardium. Normal mediastinum. Normal hilar regions. Normal unenhanced pulmonary arteries. Normal aorta arch and descending thoracic aorta. There are mild degenerative changes of the thoracic spine. There is no demonstrated abnormality of the visualized upper abdomen. ABDOMEN Normal liver. The gallbladder is contracted. Normal spleen. Normal pancreas. Normal bilateral adrenal glands. Normal right kidney. Normal left kidney. There is a small hiatal hernia. Normal small intestine. Moderate amount of fecal material is seen in the colon. The appendix is visualized and appears normal. There is diffuse atherosclerotic calcification of the abdominal aorta, without a demonstrated aneurysm. Normal inferior vena cava. There is borderline retroperitoneal lymphadenopathy with enlarged nodes no greater than 10mm in the short axis diameter. Normal abdominal wall. There are mild degenerative changes of the visualized lumbar spine. Degenerative changes of both hip joints worse on the right side. PELVIS Normal urinary bladder. The patient is status post hysterectomy. Normal visualized small intestine. Normal visualized colon. There is no pelvic fluid. There is no pelvic lymphadenopathy or mass lesion. There is diffuse atherosclerotic calcification of the pelvic arteries. CT/CT Chest, Abd, Pel w/Contrast IMPRESSION: Stable examination. No acute abnormality is seen. Electronically Signed: Shabbir Hunter MD at 15:40 EDT ,
--- NOTE | 2021-09-11 13:13 | CT_ITS ---
STUDY: CT SOFT TISSUE NECK WITH CONTRAST REASON FOR EXAM: Female, 70 years old. LYMPHOMA, ON RX RADIATION DOSAGE (If Supplied By Facility): CTDIvol = ( 13.05 ) mGy, DLP = ( 1595.13 ) mGycm TECHNIQUE: The patient was scanned in a multi-detector CT scanner. High resolution transaxial imaging was performed following intravenous administration of IV 100mL Isovue-300. Sagittal and coronal images were reconstructed. Individualized dose optimization techniques were used for this CT. COMPARISON: Comparison is made with prior study 02/08/2021. FINDINGS: A right-sided port is seen. Normal bilateral parotid glands. Normal bilateral senior risk analyst spaces. Normal bilateral parapharyngeal spaces. Normal bilateral carotid spaces. Normal bilateral sublingual and submandibular glands and spaces. Normal visualized nasopharynx. Normal retropharyngeal space. Normal perivertebral space. Normal visualized bilateral faucial tonsils. The visualized tongue, tongue base and oropharynx are normal. The visualized cervical lymph nodes (levels I-) are within normal size limits, and maintain normal morphology. There is no demonstrated solid or cystic mass lesion. There is no abnormal contrast enhancement. Normal epiglottis, bilateral vallecula and hypopharynx. The pre-epiglottic and paraglottic adipose spaces are normal. Normal visualized bilateral piriform sinuses, aryepiglottic folds, vocal cords, and arytenoid-cricoid articulations. Normal subglottic trachea. Normal bilateral lobes of the thyroid gland. Normal visualized pulmonary apices. Normal visualized paranasal sinuses. There is multilevel degenerative changes of the cervical spine. There is straightening of the normal cervical lordosis. CT/Soft Tissue Neck WITH Contrast IMPRESSION: Stable examination. No mass lesion is seen. Electronically Signed: Shabbir Hunter MD at 15:41 EDT ,
[2021-09-11 13:31] LABS: CREATININE FINGERSTICK 0.7 mg/dL (0.55-1.02); EGFR FINGERSTICK > 60.0000 mL/min (>60)
== END 2021-09-11 23:59 | disposition home or self-care (01) ==
LOC: CT 13:12
PROVIDERS: PCP Internal Medicine; Referring Provider Internal Medicine Hematology & Oncology; Visit Provider Internal Medicine Hematology & Oncology
DX: C83.10 Mantle cell lymphoma, unspecified site (principal)
CPT/HCPCS: 70491; 71260; 74177; Q9967

== ENCOUNTER 2021-09-17 08:16 | Outpatient (CLI) | payer MEDICARE, OTHER, SELFPAY ==
[2021-09-17] MEDS: Pentamidine Isethionate 300 MG, Water For Injection,Sterile 6 ML INHALATION (08:41)
== END 2021-09-17 23:59 | disposition home or self-care (01) ==
LOC: PSN 08:18
PROVIDERS: PCP Internal Medicine; Referring Provider Nurse Practitioner Family; Visit Provider Nurse Practitioner Family
DX: C83.10 Mantle cell lymphoma, unspecified site (principal); Z79.2 Long term (current) use of antibiotics
CPT/HCPCS: 94642

== ENCOUNTER 2021-10-12 10:30 | Outpatient (RCR) | payer MEDICARE, OTHER, SELFPAY ==
--- NOTE | 2021-09-20 12:52 | HP.PTEVAL_ITS ---
Patient's Visit Information TIFFANY MCKEON is a 70 year old F referred to Physical Therapy by Dr. Jose A Milner DO with a diagnosis of spinal stenosis of lumbar region, spondylosis with radiculopathy of lumbar. Date of Evaluation: 09/14/21 Physical Therapist: Jarrod Palafox DPT - Visit Plan Frequency: 2-3x /Week Duration: 4 Weeks Plan: Start neutral spine core stability. Add in slight lumbar extension progression. May use DN to SI/lumbar region as needed. - Subjective Pt. is here today for her initial evaluation with diagnosis of spinal stenosis of lumbar region, spondylosis with radiculopathy of lumbar spine. She reports having pain for a few months now. Pt. reports pain is mostly in low back, but does radiate down leg a bit on the R side. Pt. reports no N/T in either LE. She reports is she sit off loading her L side she feels a bit better. Increased pain with prolonged sitting, changes in positioning and prolonged walking. She used to work out consistently, but has held off since increase in her symptoms. She does reports her pain has started to reduce over the past week or so. She is sleeping on a couch due to have a better set up. She was diagnosed with lymphoma cancer in 2020. She does have infusuions x1 month. Port placed on R side of chest. No changes in bowel or bladder. No saddle region pain. No weakness in BLEs. She does have a history of B knee arthritis as well. She is hopeful to reduce symptoms in order to get back to all recreational working out without increase in symptoms. - Pain lumbar spine Pain Intensity (Out of 10): 2 Pain Intensity Range: 0, 4 R SI region Pain Intensity (Out of 10): 2 Pain Intensity Range: 0, 4 - Objective POSTURE: Pt. has slight flexed posture in stance. PALPATION: Pt. has tenderness at R PSIS, spring testing to lumbar spine (mild increase in symptoms at L5/S1 region). NEURO: pt. has normal neuro signs. Normal sensation in BLEs. ROM: Lumbar spine: flexion min loss increase NW, ext mod loss increase NW, SB min loss NE, rotation min loss NE bilat. Pt. has normal hip ROM bilat, slight tightness in her R piriformis and R HS. MMT: 4+/5 BLE strength, Core strength- poor+. GAIT: pt. has slight antalgic pattern. Pt. reports increased R posterior pain during R stance phase. STAIRS: B HR use. mild increase NW. - Special Tests L/S Slump test left side: Negative L/S Slump test right side: Negative L/S Left Straight Leg Raise: Negative L/S Right Straight Leg Raise: Negative Lumbar Standing: Flexion - Mechanical Response: No effect Lumbar Standing: Flexion - Symptoms During Testing: Decreases Lumbar Standing: Flexion - Symptoms After Testing: No better Lumbar Standing: Extension - Mechanical Response: No effect Lumbar Standing: Extension - Symptoms During Testing: Centralizing Lumbar Standing: Extension - Symptoms After Testing: No better Lumbar Standing: Right Side [place] - Symptoms During Testing: No effect Lumbar Standing: Right Side [place] - Symptoms After Testing: No effect Lumbar Standing: Left Side [place] - Mechanical Response: No effect Lumbar Standing: Left Side [place] - Symptoms During Testing: No effect Lumbar Standing: Left Side [place] - Symptoms After Testing: No effect Lumbar Static: Slouched Sit - Mechanical Response: No effect Lumbar Static: Slouched Sit - Symptoms During Testing: No effect Lumbar Static: Slouched Sit - Symptoms After Testing: No effect Lumbar Static: Sitting Erect - Mechanical Response: No effect Lumbar Static: Sitting Erect - Symptoms During Testing: No effect Lumbar Static: Sitting Erect - Symptoms After Testing: No effect Lumbar Static:Lying Prone in Extension - Mechanical Response: No effect Lumbar Static: Lying Prone in Extension - Sx During Testing: Increases Lumbar Static: Lying Prone in Extension - Sx After Testing: No worse - Balance/Special Test Scores Oswestry Low Back Score: 15 - Goals Goal 1:: LTG: Pt. to be I with HEP. Goal Time Frame: 2-4 Weeks Goal 2:: STG: Pt. to sleep throughout the night without increase in symptoms. Goal Time Frame: 2 Weeks Goal 3:: LTG: Pt. to have increased lumbar ROM to full without increase in symptoms. Goal Time Frame: 2-4 Weeks Goal 4:: STG: pt. to be able to walk unlimited distances without increase in symptoms with normal gait pattern. Goal Time Frame: 2 Weeks Goal 5:: LTG: pt. to have increased Core and hip strength to 5/5 throughout. Goal Time Frame: 2-4 Weeks - Rehabilitation Potential Physical Therapy Diagnosis: Pt. has signs and symptoms consistent with spinal stenosis with radiculopathy. Pt. has pain that radiates down her leg to her hip region, but no further. Pt. has marked weakness, pain, and hypomobilty. She would benefit from PT to address the above limitations progressing back to all recreational activities. Rehabilitation Potential: Excellent - Anticipated Interventions Patient/Client Instruction: Educate patient on: Condition, Plan of Care, Risk Factors, Benefits of Fitness Program For the Purpose of:: To improve decision making, To facilitate caregiver knowledge, To improve self management, To prevent re-injury, To improve ability to perform tasks related to life management Therapeutic Exercise to Include: Strength training, Power training, Postural training, Flexibilty training, Passive ROM, Active ROM, Dynamic Lumbar Stabilization, Maricel Exercises For the Purpose of:: To decrease pain, To increase ROM, To improve nutrient delivery to tissue, To increase oxygenation perfusion, To improve muscle performance and motor function, To improve ability to perform ADL's, To improve health of tissue, To decrease soft tissue restriction, To increase flexibility/ROM Manual Therapy Techniques to Include: Mobilization, Functional dry needling, Soft tissue mobilization For the Purpose of:: To decrease pain, To decrease swelling/inflammation, To increase ROM, To improve nutrient delivery to tissue, To increase oxygenation perfusion, To improve muscle performance and motor function, To improve ability to perform ADL's Thank you for the opportunity to evaluate your patient. For Medicare and Medicare HMO plans, please review the plan of care and approve it. It will need to be FAXED BACK to us at [phone] for Medicare purposes. For Medicare only, by signing this I certify the plan of care. Please let me know if there are questions or concerns regarding this plan of care. Physician Signature: Date:
== END 2021-10-12 19:00 | disposition home or self-care (01) ==
LOC: PT 10:30
PROVIDERS: PCP Internal Medicine; Referring Provider Orthopaedic Surgery; Visit Provider Orthopaedic Surgery
DX: M48.061 Spinal stenosis, lumbar region without neurogenic claudication (principal); M47.26 Other spondylosis with radiculopathy, lumbar region
CPT/HCPCS: 97110; 97161

== ENCOUNTER → 2021-10-15 | Outpatient (CLI) | payer MEDICARE, OTHER, SELFPAY ==
[2021-10-15] MEDS: Pentamidine Isethionate 300 MG, Water For Injection,Sterile 6 ML INHALATION (08:29)
== END | disposition home or self-care (01) ==
LOC: PSN 08:17
PROVIDERS: PCP Internal Medicine; Referring Provider Nurse Practitioner Family; Visit Provider Nurse Practitioner Family
DX: C83.10 Mantle cell lymphoma, unspecified site (principal); Z79.2 Long term (current) use of antibiotics
CPT/HCPCS: 94642

== ENCOUNTER → 2021-11-13 | Outpatient (CLI) | payer MEDICARE, OTHER, SELFPAY ==
[2021-11-13] MEDS: Pentamidine Isethionate 300 MG, Water For Injection,Sterile 6 ML INHALATION (08:10)
== END | disposition home or self-care (01) ==
LOC: PSN 07:40
PROVIDERS: PCP Internal Medicine; Referring Provider Nurse Practitioner Family; Visit Provider Nurse Practitioner Family
DX: C83.10 Mantle cell lymphoma, unspecified site (principal); Z79.2 Long term (current) use of antibiotics
CPT/HCPCS: 94642

== ENCOUNTER → 2021-12-10 | Outpatient (CLI) | payer MEDICARE, OTHER, SELFPAY ==
[2021-12-10] MEDS: Pentamidine Isethionate 300 MG, Water For Injection,Sterile 6 ML INHALATION (08:09)
== END | disposition home or self-care (01) ==
LOC: PSN 07:44
PROVIDERS: PCP Internal Medicine; Referring Provider Nurse Practitioner Family; Visit Provider Nurse Practitioner Family
DX: Z00.00 Encounter for general adult medical examination without abnormal findings (principal)
CPT/HCPCS: 94642

== ENCOUNTER 2022-01-07 08:03 | Outpatient (CLI) | payer MEDICARE, OTHER, SELFPAY | END 2022-01-07 23:59 | disposition home or self-care (01) | LOC: PSN 08:04 | PROVIDERS: PCP Internal Medicine; Referring Provider Nurse Practitioner Family; Visit Provider Nurse Practitioner Family | DX: C83.17 Mantle cell lymphoma, spleen (principal) | CPT/HCPCS: 94642 ==

== ENCOUNTER 2022-01-27 23:34 | Emergency (ER) | payer MEDICARE, OTHER, SELFPAY ==
[2022-01-27 23:35] VITALS: BP 168/78; PULSE 114; RESP 18; TEMP 37.2; O2SAT 95; BMI 28.3
--- NOTE | 2022-01-28 00:13 | EKG12_ITS ---
Test Reason : SOB Blood Pressure : / mmHG Vent. Rate : 113 BPM Atrial Rate : 113 BPM P-R Int : 178 ms QRS Dur : 074 ms QT Int : 306 ms P-R-T Axes : 020 048 033 degrees QTc Int : 419 ms Sinus tachycardia Low voltage QRS Possible Anterolateral infarct , age undetermined Abnormal ECG Confirmed by KAREN ARTHUR, SATNAM ([id number]), makeup editor ASHELY WATKINS ([id number]) on 01/28/2022 2:02:30 PM Referred By: Confirmed By:SATNAM JONES MD
[2022-01-28 00:36] VITALS: PULSE 114
[2022-01-28 00:42] VITALS: BP 144/75; PULSE 114; RESP 18; TEMP 38.2; O2SAT 97
[2022-01-28 00:47] VITALS: PULSE 115; RESP 20
[2022-01-28] MEDS: Albuterol 2.5 MG/3 ML VIAL.NEB. INHALATION (00:47)
[2022-01-28 00:50] LABS: Absolute Lymphocyte Count 0.25 X10^3/uL (0.83-4.51); Absolute Neutrophil Count 5.9 X10^3/uL (2.0-7.7); Basophil# 0.02 X10^3/uL; Basophil% 0.3 % (0-1); Eosinophil# 0.15 X10^3/uL; Eosinophils% 2.1 % (0-5); Hematocrit 41.1 % (37-47); Hemoglobin 13.7 g/dL (12.0-15.0); Lymphocyte # 0.25 X10^3/ul (0.83-4.51); Lymphocyte % 3.6 % (19-41); Mean Corp Hgb Conc 33.3 g/dL (32-36); Mean Corpuscular Hgb 30.3 pg (27.0-32.0); Mean Corpuscular Volume 90.9 fL (81-99); Mean Platelet Vol. 8.9 fl (6.2-12.0); Monocyte% 8.6 % (0-10); NRBC Flagged by Analyzer 0 % (0-5); Neutrophil # 5.94 X10^3/uL (2.7-7.7); Neutrophil % 84.8 % (47-70); POSITIVE DIFFERENTIAL YES; Platelet Count 187 K/mm3 (150-450); RBC Distribution Width CV 13.3 % (11.6-14.6); RBC Distribution Width SD 44.5 fl (35.1-43.9); Red Blood Count 4.52 M/mm3 (4.2-5.4)
[2022-01-28 00:58] LABS: Differential Indicated SCAN CRITERIA MET
[2022-01-28 01:05] LABS: D-Dimer Quantitative (DVT/PE) 1.56 FEU/ug/m (0.27-0.49)
[2022-01-28 01:07] LABS: Anion Gap 7 (5-15); BUN 11 mg/dL (7-18); BUN/Creat Ratio 11.4 RATIO (10-20); Calcium,Total 9.2 mg/dL (8.5-10.1); Chloride 106 mmol/L (98-107); Creatinine, Serum 0.97 mg/dL (0.55-1.02); EST Glomerular Filtration Rate 60 mL/min (>60); Est Glom Filt Rate - Afr Amer 73 mL/min (>60); Estimated Creatinine Clearance 47.87 ml/min; Glucose 126 mg/dL (74-106); Sodium Level 140 mmol/L (136-145)
[2022-01-28 01:08] LABS: Differential Comment SCANNED
--- NOTE | 2022-01-28 01:10 | CT_ITS ---
STUDY: CTA CHEST REASON FOR EXAM: Female, 71 years old. pe RADIATION DOSAGE (If Supplied By Facility): CTDIvol = ( 10.22 ) mGy, DLP = ( 374.23 ) mGycm TECHNIQUE: The examination was performed with the intravenous administration of IV 100mL Isovue-370. Post-processing of the angiographic images was performed, with multiplanar reformation and 3D reconstruction. Individualized dose optimization techniques were used for this CT. COMPARISON: CT chest 09/11/2021. FINDINGS: LUNGS: No consolidation. Reticular opacities in the mid and lower lungs may be scarring or subsegmental atelectasis. PLEURA: No pleural effusion. No pneumothorax. PULMONARY VESSELS: Multiple filling defects consistent with pulmonary emboli. Large embolus in the right interlobar artery extension into peripheral branches, more moderate sized defects in the right upper lobe, left upper lobe and left lower lobe. MEDIASTINUM: Unremarkable. HEART: Not enlarged. Slight leftward bowing of the interventricular septum. AORTA/GREAT VESSELS: Thoracic aorta is normal caliber. No aneurysm or dissection. UPPER ABDOMEN: No acute findings. BONES/SOFT TISSUES: No acute findings. OTHER: Tip of the central venous catheter in the superior vena cava at the right atrial junction partially obscured by the contrast. CT/CTA Chest W/WO Contrast IMPRESSION: Positive for bilateral pulmonary emboli moderate clot burden with equivocal findings of right heart strain. No consolidation. I discussed findings with Dr. Marshall I telephone at 2:17 AM eastern time. N.B. : The above Results were Read Back by Nellie Pavon MD to Julio C Marshall MD, and understanding confirmed on 01/28/2022 02:18:22 (ET). Electronically Signed: Nellie Pavon MD at 2:21 EDT ,
[2022-01-28 01:21] VITALS: BP 154/78; PULSE 115; RESP 17; TEMP 38.3; O2SAT 97
[2022-01-28] MEDS: Acetaminophen 325 MG Tablet 650 MG PO (01:26)
--- NOTE | 2022-01-28 01:51 | EDS_ITS ---
HPI History of Present Illness Chief Complaint: Shortness of Breath Informant: patient Narrative Narrative: Patient presents with concern for continuing cough and developing fevers with COVID. She started with symptoms on 14 January. She was seen on 16 January in [facility] and had another positive test. She was treated with Decadron. Her then tested positive. On 19 January she stopped to Decadron and was started on Paxil bid which she completed. She is done with that. She did feel as though she was getting better but now feels as though she still maintaining a harsh cough. She has slight dyspnea on exertion but that is not really worsening. She does note that she feels like she started to get some low-grade fevers again. She is also developing some slight myalgias again. [facility] Medical History (Updated 01/28/22 @ 02:[address] 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 Home Medications Omeprazole [Prilosec] 40 mg PO DAILY 03/17/20 [History Last Taken 05/31/20] ascorbic acid (vitamin C) 500 mg tablet 500 mg PO DAILY@0800 SUPPLEMENT 03/17/20 [History Last Taken 05/31/20] aspirin 81 mg tablet,delayed release 81 mg PO QHS HEART HEALTH 03/17/20 [History Last Taken 05/30/20] biotin 2,500 mcg capsule 5,000 mcg PO DAILY SUPPLEMENT 03/17/20 [History Last Taken 05/31/20] cholecalciferol (vitamin D3) 25 mcg (1,000 unit) tablet 1,000 unit PO DAILY SUPPLEMENT 03/17/20 [History Last Taken 05/31/20] fluticasone propionate 50 mcg/actuation nasal spray,suspension 2 spray NS DAILY ALLERGIES 03/17/20 [History Last Taken 05/31/20] pitavastatin calcium 2 mg tablet 2 mg PO QHS CHOLESTEROL 03/17/20 [History Last Taken 05/30/20] irbesartan 300 mg tablet 300 mg PO DAILY BP 03/21/20 [History Last Taken 05/31/20] multivit with keiojdbb-txmw-HH-lutein 8 mg iron-400 mcg-300 mcg tablet 1 tab PO DAILY SUPPLEMENT 05/31/20 [History Last Taken 05/31/20] sodium chloride 0.65 % nasal spray aerosol 30 ml NS QHS ALLERGIES 05/31/20 [History Last Taken 05/30/20] acyclovir 400 mg tablet 400 mg PO BID 90 days #180 tabs 07/24/21 [Rx Last Taken Unknown] lidocaine-prilocaine 2.5 %-2.5 % topical cream 1 applic topical ONCE PRN port access 30 days #30 grams 07/24/21 [Rx Last Taken Unknown] pentamidine 300 mg solution for inhalation 300 mg inhalation Q4W #8 ea 07/25/21 [Rx Last Taken Unknown] meloxicam 15 mg tablet 15 mg PO DAILY PRN Pain 09/18/21 [History Last Taken Unknown] metoprolol succinate 25 mg tablet,extended release 24 hr 25 mg PO DAILY 09/18/21 [History Last Taken Unknown] clobetasol 0.05 % scalp solution 1 applic topical DAILY PRN 12/06/21 [History Last Taken Unknown] montelukast 10 mg tablet 10 mg PO DAILY 12/06/21 [History Last Taken Unknown] dexamethasone 6 mg tablet (Decadron) 6 mg PO DAILY #5 tabs 01/16/22 [Rx Last Taken Unknown] apixaban 5 mg tablet (Eliquis) 5 mg PO BID #74 tabs 01/28/22 [Rx Last Taken Unknown] Allergy/AdvReac Type Severity Reaction Status Date / Time azithromycin Allergy Severe Anaphylaxis Verified 01/27/22 23:40 bromfenac [From BromSite] Allergy Severe Other Verified 01/27/22 23:40 cefdinir Allergy Severe Anaphylaxis Verified 01/27/22 23:40 fluvastatin Allergy Severe Anaphylaxis Verified 01/27/22 23:40 hyoscyamine Allergy Severe Anaphylaxis Verified 01/27/22 23:40 ofloxacin Allergy Severe Anaphylaxis Verified 01/27/22 23:40 Penicillins Allergy Severe Rash Verified 01/27/22 23:40 pravastatin Allergy Severe Other Verified 01/27/22 23:40 rosuvastatin Allergy Severe Anaphylaxis Verified 01/27/22 23:40 sulfanilamide Allergy Severe Anaphylaxis Verified 01/27/22 23:40 tetracycline Allergy Severe Anaphylaxis Verified 01/27/22 23:40 amlodipine Allergy headache/dizziness/upset Verified 01/27/22 23:40 stomach Sulfa (Sulfonamide Allergy Swelling Verified 01/27/22 23:40 Antibiotics) Family History Father CAD (coronary artery disease) Depression Diabetes Heart disease Hypertension High cholesterol Severe allergy CVA (cerebral vascular accident) Mother CAD (coronary artery disease) Asthma Arthritis Osteoporosis Myocardial infarction Grandmother CVA (cerebral vascular accident) Surgical History H/O arthroscopic knee surgery H/O: hysterectomy History of appendectomy (~1964) History of arthroscopy of right shoulder History of cholecystectomy History of colonoscopy History of tonsillectomy (~1955) Hx of LASIK Social History Smoking Status: Never smoker second hand exposure: No alcohol intake: never details: rarely substance use type: does not use what type of physical activity do you participate in: bicycling and yoga frequency: 5-6 times per week seatbelt use: always do you feel safe at home: Yes ROS ROS ED Constitutional Constitutional ED: Reports chills, fever(s) and subjective Eyes Eyes: Denies change in vision ENT ENT ED: Reports rhinorrhea; Denies sore throat Cardiovascular Cardiovascular: Denies chest pain, palpitations or racing heartbeat Respiratory/Chest Respiratory/Chest: Reports cough and dyspnea; Denies sputum Gastrointestinal Gastrointestinal: Reports other Details: Positive mild decreased appetite last couple days ; Denies abdominal pain, nausea or vomiting Genitourinary Genitourinary ED: Denies dysuria Musculoskeletal Musculoskeletal: Reports arthralgias and myalgias Integumentary Denies rash Neurologic Neurologic: Denies headache(s) or paresthesias Endocrine Endocrinology: Denies polydipsia or polyuria Hematologic/Lymphatic Hematologic/Lymphatic: Denies anemia or easy bruising Allergic/Immunologic Allergic/Immunologic ED: Denies urticaria EXAM Physical Exam Const Vital Signs: 01/27/22 23:35 01/28/22 00:36 01/28/22 00:37 Temperature 98.9 F Temperature Source Temporal Pulse Rate 114 H 114 H Respiratory Rate 18 Respiratory Effort Short of Breath Blood Pressure 168/78 H Blood Pressure Mean 108 Pulse Ox 95 Oxygen Delivery Method Room Air 01/28/22 00:42 01/28/22 00:47 01/28/22 01:21 Temperature 100.7 F H 100.9 F H Temperature Source Temporal Oral Pulse Rate 114 H 115 H 115 H Respiratory Rate 18 20 H 17 Respiratory Effort Blood Pressure 144/75 H 154/78 H Blood Pressure Mean 98 103 Pulse Ox 97 97 Oxygen Delivery Method Room Air Room Air 01/28/22 02:20 01/28/22 03:05 Temperature 99.9 F H Temperature Source Oral Pulse Rate 101 H 100 Respiratory Rate 18 19 H Respiratory Effort Blood Pressure 149/70 H 133/69 H Blood Pressure Mean 96 Pulse Ox 95 94 Oxygen Delivery Method Room Air Positive well nourished and well developed Constitutional Narrative: Patient looks very comfortable in bed. She carries on a normal conversation. Nontoxic. General Appearance ED: well developed and NAD HEENT Reports moist mucous membranes Eyes General Eye ED: Negative for scleral icterus Neck no lymphadenopathy and no JVD Resp normal respiratory effort and clear to auscultation bilaterally Resp Narrative: Lungs are clear. When she takes a deep breath it does induce a bit of a cough but no pain. I hear no wheezes rhonchi or rales. Auscultation: Negative for rales, rhonchi or wheezes Cardio regular rhythm and no murmurs Rate: tachycardic GI normal to inspection, nondistended, normoactive bowel sounds and non-tender Back/Spine no CVA tenderness Extremity normal to inspection Extremity Narrative: No edema, cords, tenderness along deep venous system or asymmetry. General Extremety ED: Negative for edema or tenderness General Extremity: Negative for edema Neuro Sensorium / Orientation: alert Psych mental status grossly normal Skin no rashes or lesions noted MDM MDM MDM Narrative Medical decision making narrative: Blood work showed overall normal CBC including normal platelet count. D-dimer is elevated. Electrolytes were overall unremarkable. We did do CT scan of the chest that did show moderate pulmonary emboli burden. There were equivocal signs of RV strain. However, her EKG does not show clear RV strain, she is not hypoxic or toxic appearing. She states she has been checking her sats at home ambulating and the lowest she gets is usually 96 or 97%. I think she is appropriate for discharge. We will start her on Eliquis. We discussed some of the risks of this and reasons to return including potential head injury or bleeding problems. Lab Data Attestation: I reviewed the patient's lab results. Labs: Laboratory Results - last 24 hr 01/28/22 01/28/22 01/28/22 00:34 00:34 00:34 WBC 7.0 RBC 4.52 Hgb 13.7 Hct 41.1 MCV 90.9 MCH 30.3 MCHC 33.3 RDW Std Deviation 44.5 H RDW Coeff of Darvin 13.3 Plt Count 187 MPV 8.9 Immature Gran % (Auto) 0.600 Neut % (Auto) 84.8 H Lymph % (Auto) 3.6 L Hudspeth % (Auto) 8.6 Eos % (Auto) 2.1 Baso % (Auto) 0.3 Absolute Neuts (auto) 5.9 Absolute Lymphs (auto) 0.25 L Nucleated RBC % 0 Differential Comment SCANNED D-Dimer Quant (PE/DVT) 1.56 H* Sodium 140 Potassium 4.0 Chloride 106 Carbon Dioxide 27.0 Anion Gap 7 BUN 11 Creatinine 0.97 Estim Creat Clear Calc 47.87 Est GFR (MDRD) Af Amer 73 Est GFR (MDRD) Non-Af 60 BUN/Creatinine Ratio 11.4 Glucose 126 H Calcium 9.2 Radiography Diagnostic Testing: Clinical Impression(s) from Imaging Studies Chest CTA 01/28/22 01:10 IMPRESSION: Positive for bilateral pulmonary emboli moderate clot burden with equivocal findings of right heart strain. No consolidation. I discussed findings with Dr. Marshall I telephone at 2:17 AM eastern time. N.B. : The above Results were Read Back by Nellie Pavon MD to Julio C Marshall MD, and understanding confirmed on 01/28/2022 02:18:22 (ET). Electronically Signed: Nellie Pavon MD at 2:21 EDT , ADDENDUM: 01/28/22 0228 IMPRESSION: Positive for bilateral pulmonary emboli moderate clot burden with equivocal findings of right heart strain. No consolidation. I discussed findings with Dr. Marshall I telephone at 2:17 AM eastern time. N.B. : The above Results were Read Back by Nellie Pavon MD to Julio C Marshall MD, and understanding confirmed on 01/28/2022 02:18:22 (ET). Electronically Signed: Nellie Pavon MD at 2:21 EDT , EKG Initial EKG: Comments: EKG done for dyspnea and tachycardia read by me shows sinus rhythm with tachycardic rate at 113. No ventricular ectopy. Nonspecific changes and low voltage diffusely but no sign of acute infarct. WI interval, QRS duration and QTc normal. Discharge Plan Triage Chief Complaint: Shortness of Breath Other Complaint: Cough ED Provider: Julio C Marshall Dx/Rx/DC Orders Clinical Impression: Pulmonary emboli, COVID-19 Instructions: Pulmonary Embolism, Coronavirus Disease 2019 (COVID-19): Caring for Yourself or Others Prescriptions: New Eliquis 5 mg tablet 5 mg PO BID Qty: 74 0RF Rx Instructions: 10 mg twice a day for the first week. Then 5 mg twice a day. No Action metoprolol succinate 25 mg tablet extended release 24 hr 25 mg PO DAILY meloxicam 15 mg tablet 15 mg PO DAILY PRN (Reason: Pain) montelukast 10 mg tablet 10 mg PO DAILY clobetasol 0.05 % solution 1 applic topical DAILY PRN dexamethasone [Decadron] 6 mg tablet 6 mg PO DAILY Qty: 5 0RF aspirin 81 MG tablet,delayed release (DR/EC) 81 mg PO QHS ascorbic acid (vitamin C) 500 MG tablet 500 mg PO DAILY@0800 fluticasone propionate 9.9 ML spray,suspension 2 spray NS DAILY cholecalciferol (vitamin D3) 1,000 UNIT tablet 1,000 unit PO DAILY biotin 2,500 MCG capsule 5,000 mcg PO DAILY pitavastatin calcium 2 MG tablet 2 mg PO QHS Omeprazole [Prilosec] 40 MG capsule 40 mg PO DAILY irbesartan 300 MG tablet 300 mg PO DAILY acyclovir 400 mg Tablet 400 mg PO BID 90 Days Qty: 180 4RF sodium chloride 88 ML aerosol,spray 30 ml NS QHS ktqxnmob-vlk-jcwx-FA-lutein 1 EACH tablet 1 tab PO DAILY lidocaine-prilocaine 2.5-2.5 % cream 1 applic topical ONCE PRN (Reason: port access) 30 Days Qty: 30 2RF pentamidine 300 mg recon soln 300 mg inhalation Q4W Qty: 8 0RF Rx Instructions: Please provide monthly beginning July 23, 2021 x 8 doses Primary Care Provider: Basim Lawson Referrals: Basim Lawson MD [Primary Care Provider] - Keep Rafaela appointment Disposition Disposition: Home, Self Care Discharge Date/Time: 01/28/22 03:16
[2022-01-28 02:20] VITALS: BP 149/70; PULSE 101; RESP 18; TEMP 37.7; O2SAT 95
[2022-01-28] MEDS: APIXABAN 5 MG TABLET 10 MG PO (03:03)
[2022-01-28 03:05] VITALS: BP 133/69; PULSE 100; RESP 19; O2SAT 94
== END 2022-01-28 03:16 | disposition home or self-care (01) ==
PROVIDERS: Emergency Provider Emergency Medicine; PCP Internal Medicine; Visit Provider Emergency Medicine
DX: I26.99 Other pulmonary embolism without acute cor pulmonale (principal); U07.1 COVID-19
CPT/HCPCS: 71275; 80048; 85025; 85379; 93005; 94640; 99285; Q9967; A4216

== ENCOUNTER → 2022-02-25 | Outpatient (CLI) | payer MEDICARE, OTHER, SELFPAY ==
--- NOTE | 2022-02-25 07:27 | CT_ITS ---
STUDY: CT SOFT TISSUE NECK WITH CONTRAST REASON FOR EXAM: Female, 71 years old. History of lymphoma. Follow-up examination. RADIATION DOSAGE (If Supplied By Facility): CTDIvol = ( 15.69 ) mGy, DLP = ( 1687.3 ) mGycm TECHNIQUE: The patient was scanned in a multi-detector CT scanner. High resolution transaxial imaging was performed following intravenous administration of IV 100mL Isovue-370. Sagittal and coronal images were reconstructed. Individualized dose optimization techniques were used for this CT. COMPARISON: Comparison is made with prior study dated 09/11/2021. FINDINGS: A right-sided portacatheter is seen with the tip in the superior vena cava. Atherosclerotic calcific plaques of the aortic arch. Normal bilateral parotid glands. Normal bilateral supervisor plate forming spaces. Normal bilateral parapharyngeal spaces. Normal bilateral carotid spaces. Normal bilateral sublingual and submandibular glands and spaces. Normal visualized nasopharynx. Normal retropharyngeal space. Normal perivertebral space. Normal visualized bilateral faucial tonsils. The visualized tongue, tongue base and oropharynx are normal. The visualized cervical lymph nodes (levels I-) are within normal size limits, and maintain normal morphology. There is no demonstrated solid or cystic mass lesion. There is no abnormal contrast enhancement. Normal epiglottis, bilateral vallecula and hypopharynx. The pre-epiglottic and paraglottic adipose spaces are normal. Normal visualized bilateral piriform sinuses, aryepiglottic folds, vocal cords, and arytenoid-cricoid articulations. Normal subglottic trachea. Normal bilateral lobes of the thyroid gland. Normal visualized pulmonary apices. There is opacification of the left maxillary sinus. There is degenerative changes of the cervical spine. CT/Soft Tissue Neck WITH Contrast IMPRESSION: Opacification of the left maxillary sinus. The remainder of the examination is unchanged. Electronically Signed: Shabbir Hunter MD at 10:14 EDT ,
--- NOTE | 2022-02-25 07:27 | CT_ITS ---
STUDY: CT CHEST, ABDOMEN T PELVIS WITH CONTRAST REASON FOR EXAM: Female, 71 years old. LYMPHOMA ON RX RADIATION DOSAGE (If Supplied By Facility): CTDIvol = ( 15.69 ) mGy, DLP = ( 1687.3 ) mGycm TECHNIQUE: Transaxial imaging was performed following intravenous administration of IV 100mL Isovue-370. Multiplanar coronal and sagittal images were reformatted. Individualized dose optimization techniques were used for this CT. COMPARISON: Comparison is made with prior study dated 09/11/2021. FINDINGS: CHEST A right-sided portacatheter is seen with the tip in the superior vena cava. The lungs are normal. There is no demonstrated pleural abnormality. Normal heart and pericardium. Normal mediastinum. Normal hilar regions. Normal unenhanced pulmonary arteries. Minimal calcific plaques at the level of the aortic arch. There are mild degenerative changes of the thoracic spine. There is no demonstrated abnormality of the visualized upper abdomen. ABDOMEN Normal liver. There are surgical clips in the gallbladder fossa consistent with a prior cholecystectomy. Normal spleen. Normal pancreas. Normal bilateral adrenal glands. Normal right kidney. Normal left kidney. There is a small hiatal hernia. Normal small intestine. There are multiple colonic diverticula consistent with diverticulosis. The appendix is visualized and appears normal. There is scattered atherosclerotic calcification of the abdominal aorta, without a demonstrated aneurysm. Normal inferior vena cava. Normal retroperitoneum. There is a small umbilical hernia containing fat. There are mild degenerative changes of the visualized lumbar spine. PELVIS Normal urinary bladder. Patient is status post hysterectomy. There is no pelvic fluid. There is no pelvic lymphadenopathy or mass lesion. There is diffuse atherosclerotic calcification of the pelvic arteries. CT/CT Chest, Abd, Pel w/Contrast IMPRESSION: Stable examination. Electronically Signed: Shabbir Hunter MD at 11:31 EDT ,
== END | disposition home or self-care (01) ==
LOC: CT 07:26
PROVIDERS: PCP Internal Medicine; Referring Provider Internal Medicine Hematology & Oncology; Visit Provider Internal Medicine Hematology & Oncology
DX: C83.10 Mantle cell lymphoma, unspecified site (principal)
CPT/HCPCS: 70491; 71260; 74177; Q9967

== ENCOUNTER → 2022-03-04 | Outpatient (CLI) | payer MEDICARE, OTHER, SELFPAY | END | disposition home or self-care (01) | LOC: PSN 07:44 | PROVIDERS: PCP Internal Medicine; Referring Provider Nurse Practitioner Family; Visit Provider Nurse Practitioner Family | DX: C85.90 Non-Hodgkin lymphoma, unspecified, unspecified site (principal) | CPT/HCPCS: 94642 ==

== ENCOUNTER → 2022-04-01 | Outpatient (CLI) | payer MEDICARE, OTHER, SELFPAY ==
[2022-04-01] MEDS: Pentamidine Isethionate 300 MG, Water For Injection,Sterile 6 ML INHALATION (08:12)
== END | disposition home or self-care (01) ==
LOC: PSN 07:44
PROVIDERS: PCP Internal Medicine; Referring Provider Nurse Practitioner Family; Visit Provider Nurse Practitioner Family
DX: C83.17 Mantle cell lymphoma, spleen (principal)
CPT/HCPCS: 94642

== ENCOUNTER → 2022-04-29 | Outpatient (CLI) | payer MEDICARE, OTHER, SELFPAY | END | disposition home or self-care (01) | LOC: PSN 07:46 | PROVIDERS: PCP Internal Medicine; Visit Provider Nurse Practitioner Family | DX: Z79.899 Other long term (current) drug therapy (principal) | CPT/HCPCS: 94642 ==

== ENCOUNTER → 2022-05-27 | Outpatient (CLI) | payer MEDICARE, OTHER, SELFPAY ==
[2022-05-27] MEDS: Pentamidine Isethionate 300 MG, Water For Injection,Sterile 6 ML INHALATION (08:06)
== END | disposition home or self-care (01) ==
LOC: PSN 07:45
PROVIDERS: PCP Internal Medicine; Visit Provider Nurse Practitioner Family
DX: Z79.899 Other long term (current) drug therapy (principal)
CPT/HCPCS: 94642

== ENCOUNTER → 2022-06-18 | Outpatient (CLI) | payer MEDICARE, OTHER, SELFPAY ==
--- NOTE | 2022-06-18 12:19 | BI_ITS ---
MAMMOGRAPHY - BILATERAL SCREENING REASON FOR EXAM: Female, 71 years old. Routine annual screening examination. PERTINENT HISTORY: Non-contributory. History of a treated lymphoma. TECHNIQUE: Digital bilateral breast win (3D mammographic acquisition) in the CC and MLO projections. 2-D mediolateral oblique (MLO) and craniocaudad (CC) views of both breasts were obtained. CAD: Full Field Digital Mammography with Computer Added Detection was performed. COMPARISON: Comparison is made with prior outside examination dated 06/05/2021. FINDINGS: Breast Composition: The breasts are heterogeneously dense, which may obscure small masses. There are no dominant masses or suspicious calcifications. Stable small benign-appearing bilateral axillary lymph nodes. No other significant abnormalities are identified. There has been no significant change since the prior study. BI/SCRN MAMM (CAD)W/WIN BILAT IMPRESSION: Stable bilateral screening mammogram. Yearly follow-up mammogram recommended. (A) ASSESSMENT CATEGORY: BIRADS Category 2: Benign. A letter regarding these results will be sent to the patient by the facility within 30 days. Approximately 10% of breast cancers are not detected by mammography. A normal mammogram should not delay biopsy of a clinically suspicious abnormality. [id number] Electronically Signed: Shabbir Hunter MD at 13:01 EST ,
== END | disposition home or self-care (01) ==
LOC: OPBI 12:16
PROVIDERS: PCP Internal Medicine; Visit Provider Internal Medicine
DX: Z12.31 Encounter for screening mammogram for malignant neoplasm of breast (principal)
CPT/HCPCS: 77063; 77067

== ENCOUNTER 2022-06-24 07:39 | Outpatient (CLI) | payer MEDICARE, OTHER, SELFPAY ==
[2022-06-24] MEDS: Pentamidine Isethionate 300 MG, Water For Injection,Sterile 6 ML INHALATION (08:07)
== END 2022-06-24 23:59 | disposition home or self-care (01) ==
LOC: PSN 07:39
PROVIDERS: PCP Internal Medicine; Referring Provider Nurse Practitioner Family; Visit Provider Nurse Practitioner Family
DX: C83.17 Mantle cell lymphoma, spleen (principal)
CPT/HCPCS: 94642

== ENCOUNTER → 2022-07-22 | Outpatient (CLI) | payer MEDICARE, OTHER, SELFPAY ==
[2022-07-22] MEDS: Pentamidine Isethionate 300 MG, Water For Injection,Sterile 6 ML INHALATION (08:14)
== END | disposition home or self-care (01) ==
LOC: PSN 07:42
PROVIDERS: PCP Internal Medicine; Visit Provider Nurse Practitioner Family
DX: Z79.899 Other long term (current) drug therapy (principal)
CPT/HCPCS: 94642

== ENCOUNTER → 2022-08-16 | Outpatient (CLI) | payer MEDICARE, OTHER, SELFPAY ==
[2022-08-16 12:54] LABS: Cholesterol 180 mg/dL (200); High Density Lipoprotein 45 mg/dL; Triglycerides 206 mg/dL; Very Low Density Lipoprotein 41 mg/dL (5-40)
== END | disposition home or self-care (01) ==
LOC: BIMLAB 09:22
PROVIDERS: PCP Internal Medicine; Referring Provider Internal Medicine; Visit Provider Internal Medicine
DX: E78.5 Hyperlipidemia, unspecified (principal)
CPT/HCPCS: 36415; 80061

== ENCOUNTER → 2022-08-19 | Outpatient (CLI) | payer MEDICARE, OTHER, SELFPAY ==
[2022-08-19] MEDS: Pentamidine Isethionate 300 MG, Water For Injection,Sterile 6 ML INHALATION (08:06)
== END | disposition home or self-care (01) ==
LOC: PSN 07:43
PROVIDERS: PCP Internal Medicine; Referring Provider Nurse Practitioner Family; Visit Provider Nurse Practitioner Family
DX: C83.10 Mantle cell lymphoma, unspecified site (principal); Z29.8 Encounter for other specified prophylactic measures
CPT/HCPCS: 94642

== ENCOUNTER → 2022-09-03 | Outpatient (CLI) | payer MEDICARE, OTHER, SELFPAY ==
--- NOTE | 2022-09-03 07:39 | CT_ITS ---
STUDY: CT CHEST, ABDOMEN T PELVIS WITH CONTRAST REASON FOR EXAM: Female, 71 years old. F/U LYMPHOMA IV CONTRAST ONLY RADIATION DOSAGE (If Supplied By Facility): CTDIvol = ( 13.9 ) mGy, DLP = ( 1481.45 ) mGycm TECHNIQUE: Transaxial imaging was performed following intravenous administration of IV 100mL Isovue-300. Individualized dose optimization techniques were used for this CT. COMPARISON: No relevant priors. FINDINGS: CHEST A right-sided Port-A-Cath is seen with the tip in the superior vena cava. The lungs are normal. There is no demonstrated pleural abnormality. Normal heart and pericardium. Normal mediastinum. Normal hilar regions. Normal unenhanced pulmonary arteries. Normal aorta arch and descending thoracic aorta. Normal osseous structures. There is no demonstrated abnormality of the visualized upper abdomen. ABDOMEN The visualized lung bases are unremarkable. The visualized portions of the heart are within normal limits. Normal liver. The gallbladder is contracted. Normal spleen. Normal pancreas. Normal bilateral adrenal glands. Normal right kidney. Normal left kidney. There is a small hiatal hernia. Normal small intestine. There are multiple colonic diverticula consistent with diverticulosis. There is non-visualization of the appendix. There is diffuse atherosclerotic calcification of the abdominal aorta, without a demonstrated aneurysm. Normal inferior vena cava. There is borderline retroperitoneal lymphadenopathy with enlarged nodes no greater than 10mm in the short axis diameter. Normal abdominal wall. There are diffuse degenerative changes of the visualized lumbar spine. PELVIS Normal urinary bladder. The patient is status post hysterectomy. Normal visualized small intestine. Normal visualized colon. There is no pelvic fluid. There is no pelvic lymphadenopathy or mass lesion. There is diffuse atherosclerotic calcification of the pelvic arteries. CT/CT Chest, Abd, Pel w/Contrast IMPRESSION: Stable examination. No acute abnormality is seen. Electronically Signed: Shabbir Hunter MD at 15:20 EDT ,
--- NOTE | 2022-09-03 07:39 | CT_ITS ---
STUDY: CT SOFT TISSUE NECK WITH CONTRAST REASON FOR EXAM: Female, 71 years old. F/U LYMPHOMA -- IV CONTRAST ONLY RADIATION DOSAGE (If Supplied By Facility): CTDIvol = ( 13.9 ) mGy, DLP = ( 1481.45 ) mGycm TECHNIQUE: The patient was scanned in a multi-detector CT scanner. High resolution transaxial imaging was performed following intravenous administration of IV 100mL Isovue-300. Sagittal and coronal images were reconstructed. Individualized dose optimization techniques were used for this CT. COMPARISON: Comparison is made with prior study to February 25, 2022. FINDINGS: A right-sided portacatheter is seen with the tip in the superior vena cava. Normal bilateral parotid glands. Normal bilateral cranberry bog supervisor spaces. Normal bilateral parapharyngeal spaces. Normal bilateral carotid spaces. Normal bilateral sublingual and submandibular glands and spaces. Normal visualized nasopharynx. Normal retropharyngeal space. Normal perivertebral space. Normal visualized bilateral faucial tonsils. The visualized tongue, tongue base and oropharynx are normal. The visualized cervical lymph nodes (levels I-) are within normal size limits, and maintain normal morphology. There is no demonstrated solid or cystic mass lesion. There is no abnormal contrast enhancement. Normal epiglottis, bilateral vallecula and hypopharynx. The pre-epiglottic and paraglottic adipose spaces are normal. Normal visualized bilateral piriform sinuses, aryepiglottic folds, vocal cords, and arytenoid-cricoid articulations. Normal subglottic trachea. Normal bilateral lobes of the thyroid gland. Normal visualized pulmonary apices. Normal visualized paranasal sinuses. There is multilevel degenerative changes of the cervical spine. CT/Soft Tissue Neck WITH Contrast IMPRESSION: Normal enhanced CT examination of the soft tissues of the neck. Electronically Signed: Shabbir Hunter MD at 15:18 EDT ,
== END | disposition home or self-care (01) ==
LOC: CT 07:38
PROVIDERS: PCP Internal Medicine; Referring Provider Internal Medicine Hematology & Oncology; Visit Provider Internal Medicine Hematology & Oncology
DX: C83.10 Mantle cell lymphoma, unspecified site (principal)
CPT/HCPCS: 70491; 71260; 74177; Q9967

== ENCOUNTER → 2022-09-16 | Outpatient (CLI) | payer MEDICARE, OTHER, SELFPAY ==
[2022-09-16] MEDS: Pentamidine Isethionate 300 MG, Water For Injection,Sterile 6 ML INHALATION (08:08)
== END | disposition home or self-care (01) ==
LOC: PSN 07:47
PROVIDERS: PCP Internal Medicine; Referring Provider Nurse Practitioner Family; Visit Provider Nurse Practitioner Family
DX: C83.17 Mantle cell lymphoma, spleen (principal)
CPT/HCPCS: 94642

== ENCOUNTER → 2022-10-14 | Outpatient (CLI) | payer MEDICARE, OTHER, SELFPAY ==
[2022-10-14] MEDS: Pentamidine Isethionate 300 MG, Water For Injection,Sterile 6 ML INHALATION (07:50)
== END | disposition home or self-care (01) ==
LOC: PSN 07:40
PROVIDERS: PCP Internal Medicine; Referring Provider Nurse Practitioner Family; Visit Provider Nurse Practitioner Family
DX: Z79.899 Other long term (current) drug therapy (principal)
CPT/HCPCS: 94642

== ENCOUNTER → 2022-11-12 | Outpatient (CLI) | payer MEDICARE, OTHER, SELFPAY ==
[2022-11-12] MEDS: Pentamidine Isethionate 300 MG, Water For Injection,Sterile 6 ML INHALATION (08:04)
== END | disposition home or self-care (01) ==
LOC: PSN 07:47
PROVIDERS: PCP Internal Medicine; Referring Provider Nurse Practitioner Family; Visit Provider Nurse Practitioner Family
DX: C83.17 Mantle cell lymphoma, spleen (principal)
CPT/HCPCS: 94642

== ENCOUNTER → 2022-12-09 | Outpatient (CLI) | payer MEDICARE, OTHER, SELFPAY | END | disposition home or self-care (01) | LOC: PSN 07:36 | PROVIDERS: PCP Internal Medicine; Referring Provider Nurse Practitioner Family; Visit Provider Nurse Practitioner Family | DX: Z79.899 Other long term (current) drug therapy (principal) | CPT/HCPCS: 94642 ==

== ENCOUNTER → 2023-01-06 | Outpatient (CLI) | payer MEDICARE, OTHER, SELFPAY ==
[2023-01-06] MEDS: Pentamidine Isethionate 300 MG, Water For Injection,Sterile 6 ML INHALATION (08:01)
== END | disposition home or self-care (01) ==
LOC: PSN 07:32
PROVIDERS: PCP Internal Medicine; Referring Provider Nurse Practitioner Family; Visit Provider Nurse Practitioner Family
DX: Z79.899 Other long term (current) drug therapy (principal)
CPT/HCPCS: 94642

== ENCOUNTER → 2023-01-27 | Outpatient (CLI) | payer MEDICARE, OTHER, SELFPAY ==
--- NOTE | 2023-01-27 07:29 | CT_ITS ---
STUDY: CT CHEST, ABDOMEN T PELVIS WITH CONTRAST REASON FOR EXAM: Female, 72 years old. F/U LYMPHOMA IV CONTRAST ONLY RADIATION DOSAGE (If Supplied By Facility): CTDIvol = ( 13.54 ) mGy, DLP = ( 1637.27 ) mGycm TECHNIQUE: Transaxial imaging was performed following intravenous administration of IV 100mL Isovue-370. Multiplanar coronal and sagittal images were reformatted. Individualized dose optimization techniques were used for this CT. COMPARISON: Comparison is made with prior study dated September 03, 2022. FINDINGS: CHEST A right-sided portacatheter is seen with the tip in the superior vena cava. The lungs are normal. There is no demonstrated pleural abnormality. Normal heart and pericardium. Normal mediastinum. Normal hilar regions. Normal unenhanced pulmonary arteries. Normal aorta arch and descending thoracic aorta. There are mild degenerative changes of the thoracic spine. There is no demonstrated abnormality of the visualized upper abdomen. ABDOMEN There is hepatomegaly with diffuse hepatic enlargement. The gallbladder is contracted. Normal spleen. Normal pancreas. Normal bilateral adrenal glands. Normal right kidney. Normal left kidney. Normal visualized stomach. Normal small intestine. There are multiple colonic diverticula consistent with diverticulosis. There is non-visualization of the appendix. There is scattered atherosclerotic calcification of the abdominal aorta, without a demonstrated aneurysm. Normal inferior vena cava. Normal retroperitoneum. There is a small umbilical hernia containing fat. There are degenerative changes of the visualized lumbar spine. PELVIS Normal urinary bladder. Patient is status post hysterectomy. There is no pelvic fluid. There is no pelvic lymphadenopathy or mass lesion. There is diffuse atherosclerotic calcification of the pelvic arteries. CT/CT Chest, Abd, Pel w/Contrast IMPRESSION: Stable examination. Fatty infiltration of the liver. Status post cystectomy and hysterectomy. Electronically Signed: Shabbir Hunter MD at 12:26 EDT ,
--- NOTE | 2023-01-27 07:29 | CT_ITS ---
HISTORY: Lymphoma follow-up. TECHNIQUE: Helically acquired images were obtained of the neck after the intravenous administration of 100 mL Isovue 370. A radiation dose optimization technique was used for this scan. 250 images. COMPARISON: 09/03/2022, 02/25/2022. FINDINGS: NASOPHARYNX: Unremarkable. SUPRAHYOID NECK: Unremarkable oropharynx, oral cavity, parapharyngeal space, and retropharyngeal space. INFRAHYOID NECK: Unremarkable larynx, hypopharynx, and supraglottis. THYROID: No focal lesions. SALIVARY GLANDS: Homogeneous parotid and submitted glands. LYMPH NODES: No pathologically enlarged cervical or supraclavicular lymphadenopathy. VASCULAR STRUCTURES: Right chest wall port again seen. ORBITS: Left lens resection. VISUALIZED PORTIONS OF THE PARANASAL SINUSES, MASTOID AIR CELLS: Well aerated. OSSEOUS STRUCTURES: Degenerative changes of the cervical spine. No suspicious osteoblastic or osteolytic lesion. LUNG APICES: Clear. CT/Soft Tissue Neck WITH Contrast IMPRESSION: No significant interval change. No evidence of acute abnormality, tumor recurrence, or metastatic disease in the neck. Electronically Signed: Lucy Mac MD at 9:18 EDT ,
[2023-01-27 07:54] LABS: CREATININE FINGERSTICK < 0.9 mg/dL (0.55-1.02); EGFR FINGERSTICK > 60.0000 mL/min (>60)
== END | disposition home or self-care (01) ==
LOC: CT 07:28
PROVIDERS: PCP Internal Medicine; Referring Provider Internal Medicine Hematology & Oncology; Visit Provider Internal Medicine Hematology & Oncology
DX: C83.10 Mantle cell lymphoma, unspecified site (principal)
CPT/HCPCS: 70491; 71260; 74177; Q9967

== ENCOUNTER → 2023-02-03 | Outpatient (CLI) | payer MEDICARE, OTHER, SELFPAY ==
[2023-02-03] MEDS: Pentamidine Isethionate 300 MG, Water For Injection,Sterile 6 ML INHALATION (08:06)
== END | disposition home or self-care (01) ==
LOC: PSN 07:42
PROVIDERS: PCP Internal Medicine; Referring Provider Nurse Practitioner Family; Visit Provider Nurse Practitioner Family
DX: Z79.899 Other long term (current) drug therapy (principal)
CPT/HCPCS: 94640; 94642

== ENCOUNTER 2023-05-26 10:34 | Emergency (ER) | payer MEDICARE, OTHER, SELFPAY ==
[2023-05-26 10:35] VITALS: BP 176/79; PULSE 106; RESP 16; TEMP 37.1; O2SAT 98; BMI 29.7
--- NOTE | 2023-05-26 11:33 | VDLE_ITS ---
Reason For Study: Right leg pain RIGHT GSV is normal. CFV is compressible, spontaneous, phasic, competent and demonstrates normal augmentation. FV is compressible, spontaneous, phasic, competent and demonstrates normal augmentation. POP V is compressible, spontaneous, phasic, competent and demonstrates normal augmentation. T/P Trunk is compressible. PTV is compressible. RT PerV is compressible. Procedure This is a venous duplex using B-mode, color flow and spectral Doppler. Exam performed portable in ED. A preliminary report was called and/or faxed to ED. VL/Venous Duplex US, Unilateral Interpretation Summary Deep veins of the right lower extremity are patent and compressible segmentally . There is no evidence of right lower extremity deep vein thrombosis. The right great sapheno us vein appears patent and compressible segmentally. Ordering Physician: Jacky Nesbitt Referring Physician: Basim Lawson Performed By: Viviana Kelsey RVT
--- NOTE | 2023-05-26 11:39 | EDS_ITS ---
HPI History of Present Illness Chief Complaint: Lower Extremity Injury Informant: patient Narrative Narrative: 72-year-old female presenting to the emergency room out of concern for DVT of the right leg. Patient states she has had prior pulmonary embolism in the setting of non-Hodgkin's lymphoma and COVID-19 infection. She has been on Eliquis for approximately 1 year consistently. She denies missing any doses. She notes that for little over a week she has had pain in the lateral aspect of the right calf. She states she was up and down stairs and developed pain in the calf. Last week it was significantly more painful. It continues to hurt. She denies any significant swelling. She states that if she is up and walking it hurts but if she is at rest it is not hurting. 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 Vertigo Home Medications ascorbic acid (vitamin C) 500 mg tablet 500 mg PO DAILY@0800 SUPPLEMENT 03/17/20 [History Last Taken 05/31/20] aspirin 81 mg tablet,delayed release 81 mg PO QHS HEART HEALTH 03/17/20 [History Last Taken 05/30/20] biotin 2,500 mcg capsule 5,000 mcg PO DAILY SUPPLEMENT 03/17/20 [History Last Taken 05/31/20] cholecalciferol (vitamin D3) 25 mcg (1,000 unit) tablet 1,000 unit PO DAILY SUPPLEMENT 03/17/20 [History Last Taken 05/31/20] abcqgoks-dnsm-tuwn 8 mg-folic 400 mcg-K 50 mcg-lutein 300 mcg tablet 1 tab PO DAILY SUPPLEMENT 05/31/20 [History Last Taken 05/31/20] sodium chloride 0.65 % nasal spray aerosol 30 ml NS QHS ALLERGIES 05/31/20 [History Last Taken 05/30/20] clobetasol 0.05 % scalp solution 1 applic topical DAILY PRN Rash 12/06/21 [History Last Taken Unknown] meclizine 25 mg tablet 25 mg PO DAILY PRN dizziness #30 tabs 05/17/22 [Rx Last Taken Unknown] lidocaine-prilocaine 2.5 %-2.5 % topical cream 1 applic topical ONCE PRN port access 30 days #30 grams 08/20/22 [Rx Last Taken Unknown] pentamidine 300 mg solution for inhalation 300 mg inhalation Q4W #6 ea 12/19/22 [Rx Last Taken Unknown] montelukast 10 mg tablet See Rx Instructions .Route .COMPLEX #90 tabs 02/05/23 [Rx Last Taken Unknown] apixaban 5 mg tablet (Eliquis) See Rx Instructions .Route .COMPLEX #180 tabs 02/18/23 [Rx Last Taken Unknown] fluticasone propionate 50 mcg/actuation nasal spray,suspension 2 spray intranasal DAILY ALLERGIES #16 grams 02/25/23 [Rx Last Taken Unknown] irbesartan 300 mg tablet See Rx Instructions .Route .COMPLEX #90 tabs 04/14/23 [Rx Last Taken Unknown] prednisone 20 mg tablet mg PO 04/23/23 [History Last Taken Unknown] omeprazole 40 mg capsule,delayed release See Rx Instructions .Route .COMPLEX #90 caps 05/01/23 [Rx Last Taken Unknown] pitavastatin calcium 2 mg tablet (Livalo) See Rx Instructions .Route .COMPLEX #90 TABLETS 05/23/23 [Rx Last Taken Unknown] Allergy/AdvReac Type Severity Reaction Status Date / Time azithromycin Allergy Severe Anaphylaxis Verified 05/26/23 10:34 bromfenac [From BromSite] Allergy Severe Other Verified 05/26/23 10:34 cefdinir Allergy Severe Anaphylaxis Verified 05/26/23 10:34 fluvastatin Allergy Severe bodyaches Verified 05/26/23 10:34 hyoscyamine Allergy Severe Anaphylaxis Verified 05/26/23 10:34 ofloxacin Allergy Severe Anaphylaxis Verified 05/26/23 10:34 Penicillins Allergy Severe Rash Verified 05/26/23 10:34 pravastatin Allergy Severe body aches Verified 05/26/23 10:34 rosuvastatin Allergy Severe bodyaches Verified 05/26/23 10:34 sulfanilamide Allergy Severe Anaphylaxis Verified 05/26/23 10:34 tetracycline Allergy Severe Anaphylaxis Verified 05/26/23 10:34 amlodipine Allergy headache/dizziness/upset Verified 05/26/23 10:34 stomach Sulfa (Sulfonamide Allergy Swelling Verified 05/26/23 10:34 Antibiotics) pantoprazole AdvReac Intermediate Bleeding Verified 05/26/23 10:34 Family History Father CAD (coronary artery disease) Depression Diabetes Heart disease Hypertension High cholesterol Severe allergy CVA (cerebral vascular accident) Mother CAD (coronary artery disease) Asthma Arthritis Osteoporosis Myocardial infarction Grandmother CVA (cerebral vascular accident) Surgical History H/O arthroscopic knee surgery H/O: hysterectomy History of appendectomy (~1964) History of arthroscopy of right shoulder History of cholecystectomy History of colonoscopy History of tonsillectomy (~1955) Hx of LASIK Social History Smoking Status: Never smoker second hand exposure: No alcohol intake: never details: rarely substance use type: does not use what type of physical activity do you participate in: bicycling and yoga frequency: 5-6 times per week seatbelt use: always do you feel safe at home: Yes ROS ROS ED Constitutional Constitutional ED: Denies chills or weight loss Eyes Eyes: Denies change in vision or diplopia ENT ENT ED: Denies ear pain, rhinorrhea or sore throat Cardiovascular Cardiovascular: Denies chest pain, orthopnea, palpitations or racing heartbeat Respiratory/Chest Respiratory/Chest: Denies cough, dyspnea or orthopnea Gastrointestinal Gastrointestinal: Denies abdominal pain, diarrhea, nausea or vomiting Genitourinary Genitourinary ED: Denies dysuria, hematuria or urinary frequency Musculoskeletal Musculoskeletal: Reports other Details: Right calf pain ; Denies arthralgias or myalgias Integumentary Denies abscess or rash Neurologic Neurologic: Denies headache(s) or weakness Psychiatric Psychiatric: Denies anxiety, depression, suicidal ideation or suicidal thoughts Endocrine Endocrinology: Denies polydipsia, polyphagia or polyuria Allergic/Immunologic Allergic/Immunologic ED: Denies mouth swelling, tongue swelling or urticaria EXAM Physical Exam Const Vital Signs: 05/26/23 10:35 Temperature 98.8 F Temperature Source Temporal Pulse Rate 106 H Respiratory Rate 16 Blood Pressure 176/79 H Blood Pressure Mean 111 Pulse Ox 98 Oxygen Delivery Method Room Air Positive well nourished and well developed General Appearance ED: well developed HEENT Reports normocephalic, head/scalp atraumatic and moist mucous membranes Eyes PERRL and EOMs intact bilaterally Neck no lymphadenopathy, supple and no JVD Resp normal respiratory effort and clear to auscultation bilaterally Cardio regular rate, regular rhythm and no murmurs GI normal to inspection, nondistended, normoactive bowel sounds and non-tender Palpation: soft Back/Spine no CVA tenderness and normal ROM Extremity normal to inspection Extremity Narrative: I do not appreciate any swelling. No palpable cords. Popliteal dorsalis pedis pulses. Normal skin color. General Extremety ED: Negative for edema General Extremity: Negative for edema Neuro oriented x3 and CN's II-XII intact bilaterally Sensorium / Orientation: alert Motor Exam: strength 5/5 throughout Psych mental status grossly normal Mood & Affect: Negative for depressed or tearful Skin no rashes or lesions noted and no wounds MDM MDM MDM Narrative Medical decision making narrative: Duplex ultrasound was negative for DVT. I think this is most likely a strain. Patient to be discharged home with supportive care return if worsening or concerns Discharge Plan Triage Chief Complaint: Lower Extremity Injury ED Provider: Jacky Nesbitt Dx/Rx/DC Orders Clinical Impression: Strain of right calf muscle, Anticoagulated Instructions: Self-Care for Strains and Sprains Prescriptions: No Action clobetasol 0.05 % solution 1 applic topical DAILY PRN (Reason: Rash) meclizine 25 mg tablet 25 mg PO DAILY PRN (Reason: dizziness) Qty: 30 2RF prednisone 20 mg tablet PO Patient Comments: TAKE TWO TABLETS EACH MORNING FOR 7 DAYS THEN ONE TABLET EACH MORNING FOR 7 DAYS aspirin 81 MG tablet,delayed release (DR/EC) 81 mg PO QHS ascorbic acid (vitamin C) 500 MG tablet 500 mg PO DAILY@0800 cholecalciferol (vitamin D3) 1,000 UNIT tablet 1,000 unit PO DAILY biotin 2,500 MCG capsule 5,000 mcg PO DAILY lidocaine-prilocaine 2.5-2.5 % cream 1 applic topical ONCE PRN (Reason: port access) 30 Days Qty: 30 2RF sodium chloride 88 ML aerosol,spray 30 ml NS QHS [id number]-[id number]-FA-vit K-lut 1 EACH tablet 1 tab PO DAILY pentamidine 300 mg recon soln 300 mg inhalation Q4W Qty: 6 0RF Rx Instructions: Please provide monthly montelukast 10 mg tablet See Rx Instructions .ROUTE .COMPLEX Qty: 90 3RF Dose Instruction: TAKE 1 TABLET BY MOUTH EVERY DAY Rx Instructions: TAKE 1 TABLET BY MOUTH EVERY DAY Eliquis 5 mg tablet See Rx Instructions .ROUTE .COMPLEX Qty: 180 2RF Dose Instruction: TAKE 1 TABLET BY MOUTH TWICE A DAY Rx Instructions: TAKE 1 TABLET BY MOUTH TWICE A DAY fluticasone propionate 50 mcg/actuation spray,suspension 2 spray intranasal DAILY Qty: 16 3RF irbesartan 300 mg tablet See Rx Instructions .ROUTE .COMPLEX Qty: 90 3RF Dose Instruction: TAKE 1 TABLET BY MOUTH EVERY DAY FOR BLOOD PRESSURE Rx Instructions: TAKE 1 TABLET BY MOUTH EVERY DAY FOR BLOOD PRESSURE omeprazole 40 mg capsule,delayed release(DR/EC) See Rx Instructions .ROUTE .COMPLEX Qty: 90 3RF Dose Instruction: TAKE 1 CAPSULE BY MOUTH EVERY DAY Rx Instructions: TAKE 1 CAPSULE BY MOUTH EVERY DAY pitavastatin calcium [Livalo] 2 mg tablet See Rx Instructions .ROUTE .COMPLEX Qty: 90 1RF Dose Instruction: 2 MG ORALLY EVERY EVENING FOR CHOLESTEROL Rx Instructions: 2 MG ORALLY EVERY EVENING FOR CHOLESTEROL Primary Care Provider: Basim Lawson Referrals: Basim Lawson MD [Primary Care Provider] - 1 Week if not improving Disposition Disposition: Home, Self Care
--- OUTSIDE RECORDS SUMMARY | 2023-05-26 11:50 | XMS RPT_ITS | CCD ---
Author Name Unknown Address [address] [place] [address] Organization [facility] Care Team Providers Care Project Admin Name Role Phone Aiyana Danielle Unavailable Dio Espinoza LPN Unavailable UnavailIdalia Vargas Unavailable Unavailable Duy Carcamo Unavailable Unavailable Duy Carcamo Unavailable Unavailable Teo Harkins Unavailable Unavaila Duy Chan Unavailable Unavailable Duy Carcamo Primary Care Provider Aiyana Danielle Unavailable DR DUY CARCAMO DO Primary Care Physician TAMY OSMAN Attending Unavailable YAMILKA OCASIO Referring Unavailable DUY CARCAMO Primary Care Unavailable DUY CARCAMO Primary Care Unavailable TAMY OSMAN Attending Unavailable DUY CARCAMO Referring Unavailable Allergies Allergy Classification Reported Allergen(s) Allergy Type Date of Onset Reaction(s) Facility (2 sources) Azithromycin; Translations: [azithromycin] Drug Allergy Swelling [facility] Work Phone: (2 sources) cefdinir; Translations: [cefdinir] Drug Allergy Pharyngeal swelling (finding) [facility] Work Phone: (2 sources) fluvastatin; Translations: [fluvastatin] Drug Allergy Muscle pain (finding) [facility] Work Phone: (2 sources) Ofloxacin; Translations: [ofloxacin] Drug Allergy Pharyngeal swelling (finding) [facility] Work Phone: (2 sources) Penicillin; Translations: [penicillins] Drug Allergy Pharyngeal swelling (finding) [facility] Work Phone: (2 sources) Pravastatin; Translations: [pravastatin] Drug Allergy Muscle pain (finding) [facility] Work Phone: (2 sources) rosuvastatin; Translations: [rosuvastatin] Drug Allergy Muscle pain (finding) [facility] Work Phone: (2 sources) Sulfonamides (Antibiotic); Translations: [sulfa drugs] Drug allergy Swelling [facility] Work Phone: (2 sources) Tetracycline; Translations: [tetracycline] Drug Allergy Rash [facility] Work Phone: Medications Current Medications Medication Drug Class(es) Dates Sig (Normalized) Sig (Original) Allergy Relief (2 sources) Start: 01-19-2016 Allergy Relief 5mg/120mg, Oral, QID Start Date: 01/19/16 Status: Ordered ascorbic acid 500 mg oral tablet (2 sources) Vitamin C Start: 01-19-2016 Vitamin C 500 mg oral tablet Dose : 500 mg = 1 tab(s), Oral, Daily Start Date: 01/19/16 Status: Ordered Aspirin (2 sources) Platelet Aggregation Inhibitor, Nonsteroidal Anti-inflammatory Drug Start: 01-19-2016 aspirin 81 mg oral delayed release tablet Dose : 81 mg = 1 tab(s), Oral, Daily Start Date: 01/19/16 Status: Ordered fluticasone 50 mcg/inh NASAL spray (2 sources) Start: 01-19-2016 fluticasone 50 mcg/inh NASAL spray Dose = 1 spray(s), Nasal, BID Start Date: 01/19/16 Status: Ordered lansoprazole 30 mg delayed release oral capsule (2 sources) Proton Pump Inhibitor Start: 01-19-2016 lansoprazole 30 mg oral delayed release capsule (NF) Dose : 30 mg = 1 cap(s), Oral, qDay Start Date: 01/19/16 Status: Ordered Multivitamin preparation (2 sources) Start: 01-19-2016 take 1 tablet by mouth once daily Multivitamin Dose = 1 tab(s), Oral, Daily Start Date: 01/19/16 Status: Ordered pitavastatin calcium 2 mg oral tablet (2 sources) HMG-CoA Reductase Inhibitor Start: 01-19-2016 Livalo 2 mg oral tablet (NF) Dose : 2 mg = 1 tab(s), Oral, qDay Start Date: 01/19/16 Status: Ordered Vitamin D2 1000 units oral tablet (2 sources) Start: 01-19-2016 Vitamin D2 1000 units oral tablet Dose : 1,000 unit(s) = 1 tab(s), Oral, Daily Start Date: 01/19/16 Status: Ordered Completed/Discontinued Medications Medication Drug Class(es) Dates Sig (Normalized) Sig (Original) amitriptyline hydrochloride 100 mg oral tablet (3 sources) Tricyclic Antidepressant Start: 10-14-2016 AMITRIPTYLINE HCL 100 MG TABS as directed AMITRIPTYLINE HCL [id number] Emelyn Aranda biotin 5 mg oral capsule (5 sources) Start: 07-22-2016 BIOTIN 5000 5 MG CAPS BIOTIN [id number] Rk Pierce Problems Active Problems Problem Classification Problem Date Documented Date Episodic/Chronic Cardiac and circulatory congenital anomalies (3 sources) Congenital vascular malformation; Translations: [Congenital malformation of peripheral vascular system, unspecified] Onset: 7 07-22-2016 Chronic Disorders of lipid metabolism (2 sources) Hypercholesterolemia 01-19-2016 Chronic Esophageal disorders (2 sources) Gastroesophageal reflux disease 01-19-2016 Chronic Essential hypertension (2 sources) Hypertensive disorder 01-19-2016 Chronic Other nervous system disorders (3 sources) Cervical radiculopathy; Translations: [Radiculopathy, cervical region] Onset: 7 07-22-2016 Chronic Past or Other Problems Problem Classification Problem Date Documented Da te Episodic/Chronic Spondylosis; intervertebral disc disorders; other back problems (3 sources) Neck pain; Translations: [Cervicalgia] Onset: 07-22-2016 07-22-2016 Episodic Results Test Name Value Interpretation Reference Range Facil ity Vital Signs Date Time Vital Sign Value Performing Clinician Faci lity 07-22-2016 08:32-0500 BMI (Body Mass Index) 31.28 kg/m2 Dio Espinoza LPN [facility] Work Phone: 07-22-2016 08:32-0500 Body weight 85.28 kg Aiyana Danielle [facility] Work Phone: 07-22-2016 08:32-0500 Height 165.1 cm Dio Espinoza LPN [facility] Work Phone: 07-22-2016 08:32-0500 Weight 85.28 kg Dio Espinoza LPN [facility] Work Phone: Encounters Encounter Date Encounter Type Care Provider Facility Start: 06-05-2021 End: 06-05-[address] DUY CARCAMO DO [facility] Start: 05-15-2021 End: 05-15-[address] DUY CARCAMO DO [facility] Start: 01-26-2021 ambulatory DUY CARCAMO Facility :[facility] Start: 12-29-2020 ambulatory TAMY Nicholas lity:[facility] Start: 04-24-2018 Patient encounter procedure Teo Harkins Facility:[id number] Start: 04-23-2018 Patient encounter procedure Idalia Perfecto Facility:[id number] Start: 05-05-2000 End: 05-05-2000 Patient encounter procedure Abena Kelly Work Phone: [facility] Start: 05-05-2000 Results Only A Eben rm Work Phone: [facility] Procedures Date Procedure Procedure Detail Performing Clinician Start: 10-14-2016 End: 10-14-2016 Documentation of current medications Aiyana Danielle Start: 07-29-2016 End: 08-07-2016 Creatine kinase (CK) Emelyn Aranda Work Phone: Start: 07-22-2016 End: 08-07-2016 Ct angiography, head Emelyn Aranda Work Phone: Start: 07-22-2016 End: 08-07-2016 Ct angiography, neck Emelyn Aranda Work Phone: Start: 05-05-2000 CONVERTED SURGICAL PATHOLOGY A Eben Cervino Work Phone: Abdominal hysterectomy DR KENNY CARCAMO DO Appendectomy DR DUY CARCAMO DO Arthroscopy of knee DR GREGORIO CARCAMO DO Plan of Treatment Date Care Activity Detail Author Start: 10-14-2016 End: 10-14-2016 Appointment Appointment [facility] Work Phone: Start: 08-19-2016 End: 08-19-2016 Mri neck spine w/o dye MRI Cervical Spine [facility] Work Phone: Start: 07-29-2016 End: 08-07-2016 Creatine kinase (CK) *Creatine Kinase (CK) [facility] Work Phone: Start: 07-22-2016 End: 08-07-2016 Ct angiography, head CTA Head/Brain [facility] Work Phone: Start: 07-22-2016 End: 08-07-2016 Ct angiography, neck CTA Neck [facility] Work Phone: Payers Date Payer Category Payer Unknown [id number] 2015 Medicare [id number] 1950 Unknown [id number] 1950 Unknown [id number] 1950 Unknown [id number] .. [id number] 1950 Unknown [id number] Social History Date Type Detail Facility Tobacco smoking status KYIS Unknown if ev er smoked [facility] Sex Assigned At Not on file [facility] Never smoked tob acco (finding) [facility] Sex Assigned At [facility] Evaluation + Plan note Radiology Note Date & Type Note Facility Evaluation + Plan note Future Appointments Appointment Date:06/05/2021 08:30:00 AM Scheduled Provider: Location:[facility] Appointment Type:[facility] Mammogram Screening Bilateral w/ Jose Future Scheduled TestsMA Mammo Screening Bilateral w/ Jose 06/05/21 [facility] Hospital course Narrative Note Date & Type Note Facility Hospital course Narrative No data available for this section [facility] Hospital Discharge instructions Note Date & Type Note Facility Hospital Discharge instructions No data available for this section [facility] Summary Purpose Family History No Family History Records FoundNo Family History Records FoundNo Family History Records FoundNo Family History Records Found Advance Directives No Advanced Directives Records FoundNo Advanced Directives Records FoundNo Advanced Directives Records FoundNo Advanced Directives Records Found Additional Source Comments INFORMATION SOURCE (unrecogn ized section and content) DATE CREATED AUTHOR AUTHOR'S ORGANIZ ATION 05/25/2018 [facility] DATE CREATED AUTHOR AUTHOR'S ORGANIZ ATION 06/14/2021 [facility] ([place]) DATE CREATED AUTHOR AUTHOR'S ORGANIZ ATION 08/06/2021 [facility] Source Comments (unrecognize d section and content) In the event this informatio n is protected by the Federal Confidentiality of Alcohol and Drug Abuse Patient Records regulations: The Federal rules restrict any use of the information to criminally investigate or prosecute any alcohol or drug abuse patient.[facility] FOR RECORDS PERTAINING TO PATIENTS WHO ARE OR HAVE BEEN ENROLLED IN A CHEMICAL DEPENDENCY/SUBSTANCEABUSE PROGRAM, SOME INFORMATION MAY BE OMITTED. This clinical summary was aggregated from multiple sources. Caution should be exercised in using it in the provision of clinical care. This summary normalizes information from multiple sources, and as a consequence, information in this document may materially change the coding, format and clinical context of patient data. In addition, data may be omitted in some cases. CLINICAL DECISIONS SHOULD BE BASED ON THE PRIMARY CLINICAL RECORDS. [facility] [employer] [facility]. provides no warranty or guarantee of the accuracy or completeness of information in this document.
== END 2023-05-26 12:29 | disposition home or self-care (01) ==
PROVIDERS: Emergency Provider Emergency Medicine; PCP Internal Medicine; Referring Provider Emergency Medicine; Visit Provider Emergency Medicine
DX: S86.111A Strain of other muscle(s) and tendon(s) of posterior muscle group at lower leg level, right leg, initial encounter (principal); C83.17 Mantle cell lymphoma, spleen; R16.1 Splenomegaly, not elsewhere classified; R50.9 Fever, unspecified; C44.02 Squamous cell carcinoma of skin of lip; Z79.899 Other long term (current) drug therapy; X58.XXXA Exposure to other specified factors, initial encounter; Z79.01 Long term (current) use of anticoagulants; Z86.16 Personal history of COVID-19; Z45.2 Encounter for adjustment and management of vascular access device; Z86.711 Personal history of pulmonary embolism
CPT/HCPCS: 36591; 93971; 99282

== ENCOUNTER → 2023-06-23 | Outpatient (CLI) | payer MEDICARE, OTHER, SELFPAY ==
--- NOTE | 2023-06-23 13:29 | BI_ITS ---
MAMMOGRAPHY - BILATERAL SCREENING REASON FOR EXAM: Female, 72 years old. Routine annual screening examination. PERTINENT HISTORY: Non-contributory. History of lymphoma. TECHNIQUE: Digital bilateral breast win (3D mammographic acquisition) in the CC and MLO projections. 2-D mediolateral oblique (MLO) and craniocaudad (CC) views of both breasts were obtained. CAD: Full Field Digital Mammography with Computer Added Detection was performed. COMPARISON: Comparison is made with prior study dated June 18, 2022. FINDINGS: Breast Composition: The breasts are heterogeneously dense, which may obscure small masses. There are no dominant masses or suspicious calcifications. Stable bilateral fat containing axillary lymph nodes. No other significant abnormalities are identified. There has been no significant change since the prior study. BI/SCRN MAMM (CAD)W/WIN BILAT IMPRESSION: Stable bilateral screening mammogram. Yearly follow-up mammogram recommended. (A) ASSESSMENT CATEGORY: BIRADS Category 2: Benign. A letter regarding these results will be sent to the patient by the facility within 30 days. Approximately 10% of breast cancers are not detected by mammography. A normal mammogram should not delay biopsy of a clinically suspicious abnormality. [id number] Electronically Signed: Shabbir Hunter MD at 9:23 EST ,
--- OUTSIDE RECORDS SUMMARY | 2023-06-23 14:42 | XMS RPT_ITS | CCD ---
Author Name Unknown Address [address] [facility] [address] [place] [address] Organization [facility] Care Team Providers Care Tester Food Products Name Role Phone Aiyana Danielle Unavailable Dio [...] sources) Azithromycin; Translations: [azithromycin] Drug Allergy Swelling [facility] Work Phone: (2 sources) cefdinir; Translations: [cefdinir] Drug Allergy Pharyngeal swelling (finding) [facility] Work Phone: (2 sources) fluvastatin; Translations: [fluvastatin] Drug Allergy Muscle pain (finding) [facility] Work Phone: (2 sources) Ofloxacin; Translations: [ofloxacin] Drug Allergy Pharyngeal swelling (finding) [facility] Work Phone: (2 sources) Penicillin; Translations: [penicillins] Drug Allergy Pharyngeal swelling (finding) [facility] Work Phone: (2 sources) Pravastatin; Translations: [pravastatin] Drug Allergy Muscle pain (finding) [facility] Work Phone: (2 sources) rosuvastatin; Translations: [rosuvastatin] Drug Allergy Muscle pain (finding) [facility] Work Phone: (2 sources) Sulfonamides (Antibiotic); Translations: [sulfa drugs] Drug allergy Swelling [facility] Work Phone: (2 sources) Tetracycline; Translations: [tetracycline] Drug Allergy Rash [facility] Work Phone: Medications Current Medications Medication [...] 100 MG TABS as directed AMITRIPTYLINE HCL [id number] Emelyn Aranda biotin 5 mg oral capsule (5 sources) Start: 07-22-2016 BIOTIN 5000 5 MG CAPS BIOTIN [id number] Rk Pierce Problems Active Problems Problem Classification [...] Mass Index) 31.28 kg/m2 Dio Espinoza LPN [facility] Work Phone: 07-22-2016 08:32-0500 Body weight 85.[address] [facility] [place] Work Phone: 07-22-2016 08:32-0500 Height 165.1 cm Dio Espinoza LPN [facility] Work Phone: 07-22-2016 08:32-0500 Weight 85.28 kg Dio Espinoza LPN [facility] Work Phone: Encounters Encounter Date Encounter Type Care Provider Facility Start: 06-05-2021 End: 06-05-[address] DUY CARCAMO DO [facility] Start: 05-15-2021 End: 05-15-[address] DUY CARCAMO DO [facility] Start: 01-26-2021 ambulatory DUY CARCAMO Facility :[facility] Start: 12-29-2020 ambulatory TAMY Nicholas lity:[facility] Start: 04-24-2018 Patient encounter procedure Teo Harkins Facility:[id number] Start: 04-23-2018 Patient encounter procedure Idalia Perfecto Facility:[id number] Start: 05-05-2000 End: 05-05-2000 Patient encounter procedure Abena Kelly Work Phone: [facility] Start: 05-05-2000 Results Only A Eben rm Work Phone: [facility] Procedures Date Procedure Procedure Detail Performing Clinician [...] Author Start: 10-14-2016 End: 10-14-2016 Appointment Appointment [facility] Work Phone: Start: 08-19-2016 End: 08-19-2016 Mri neck spine w/o dye MRI Cervical Spine [facility] Work Phone: Start: 07-29-2016 End: 08-07-2016 Creatine kinase (CK) *Creatine Kinase (CK) [facility] Work Phone: Start: 07-22-2016 End: 08-07-2016 Ct angiography, head CTA Head/Brain [facility] Work Phone: Start: 07-22-2016 End: 08-07-2016 Ct angiography, neck CTA Neck [facility] Work Phone: Payers Date Payer Category Payer Unknown [id number] 2015 Medicare [id number] 1950 Unknown [id number] 08.01. [id number] 1950 Unknown [id number] 1950 Unknown [id number] .. [id number] 1950 Unknown [id number] Social History Date Type Detail Facility Tobacco smoking status WYIS Unknown if ev er smoked [facility] Sex Assigned At Not on file [facility] Never smoked tob acco (finding) [facility] [place] Sex Assigned At [facility] Evaluation + Plan note Radiology Note Date & Type Note Facility Evaluation + Plan note Future Appointments Appointment Date:06/05/2021 08:30:00 AM Scheduled Provider: Location:[facility] Appointment Type:[place] Mammogram Screening Bilateral w/ Jose Future Scheduled TestsMA Mammo Screening Bilateral w/ Jose 06/05/21 [facility] Hospital course Narrative Note Date & Type Note Facility Hospital course Narrative No data available for this section [facility] Hospital Discharge instructions Note Date & Type Note Facility Hospital Discharge instructions No data available for this section [facility] Summary Purpose Family History No Family History Records FoundNo Family History Records FoundNo Family History Records FoundNo Family History Records Found Advance Directives No Advanced Directives Records FoundNo Advanced Directives Records FoundNo Advanced Directives Records FoundNo Advanced Directives Records Found Additional Source Comments INFORMATION SOURCE (unrecogn ized section and content) DATE CREATED AUTHOR AUTHOR'S ORGANIZ ATION 05/25/2018 [facility] DATE CREATED AUTHOR AUTHOR'S ORGANIZ ATION 06/14/2021 [facility] ([place]) DATE CREATED AUTHOR AUTHOR'S ORGANIZ ATION 08/06/2021 [facility] Source Comments (unrecognize d section and content) In the event this informatio n is protected by the Federal Confidentiality of Alcohol and Drug Abuse Patient Records regulations: The Federal rules restrict any use of the information to criminally investigate or prosecute any alcohol or drug abuse patient.[facility] FOR RECORDS PERTAINING TO PATIENTS WHO ARE [...] BE BASED ON THE PRIMARY CLINICAL RECORDS. [facility]. provides no warranty or guarantee of the accuracy or completeness of information in this document.
== END | disposition home or self-care (01) ==
LOC: OPBI 13:29
PROVIDERS: PCP Internal Medicine; Referring Provider Internal Medicine; Visit Provider Internal Medicine
DX: Z12.31 Encounter for screening mammogram for malignant neoplasm of breast (principal)
CPT/HCPCS: 77063; 77067

== ENCOUNTER → 2023-07-21 | Outpatient (CLI) | payer MEDICARE, OTHER, SELFPAY ==
--- NOTE | 2023-07-21 07:47 | CT_ITS ---
STUDY: CT SOFT TISSUE NECK WITH CONTRAST REASON FOR EXAM: Female, 72 years old. F/U LYMPHOMA -- IV CONTRAST ONLY RADIATION DOSAGE (If Supplied By Facility): CTDIvol = ( 18.68 ) mGy, DLP = ( 1101.57 ) mGycm TECHNIQUE: The patient was scanned in a multi-detector CT scanner. High resolution transaxial imaging was performed following intravenous administration of IV 100mL Isovue-370. Sagittal and coronal images were reconstructed. Individualized dose optimization techniques were used for this CT. COMPARISON: Comparison is made with prior examination January 27, 2023. FINDINGS: A right-sided Port-A-Cath is seen with the tip in the superior vena cava. Normal bilateral parotid glands. Normal bilateral automatic typewriter inspector spaces. Normal bilateral parapharyngeal spaces. Normal bilateral carotid spaces. Normal bilateral sublingual and submandibular glands and spaces. Normal visualized nasopharynx. Normal retropharyngeal space. Normal perivertebral space. Normal visualized bilateral faucial tonsils. The visualized tongue, tongue base and oropharynx are normal. The visualized cervical lymph nodes (levels I-) are within normal size limits, and maintain normal morphology. There is no demonstrated solid or cystic mass lesion. There is no abnormal contrast enhancement. Normal epiglottis, bilateral vallecula and hypopharynx. The pre-epiglottic and paraglottic adipose spaces are normal. Normal visualized bilateral piriform sinuses, aryepiglottic folds, vocal cords, and arytenoid-cricoid articulations. Normal subglottic trachea. Normal bilateral lobes of the thyroid gland. Normal visualized pulmonary apices. Normal visualized paranasal sinuses. Straightening of the normal cervical lordosis. Mild degree of degenerative changes and spondylosis at the C5-C6 and C6-C7 levels. CT/Soft Tissue Neck WITH Contrast IMPRESSION: No acute abnormality is seen. Electronically Signed: Shabbir Hunter MD at 13:43 EST ,
--- NOTE | 2023-07-21 07:47 | CT_ITS ---
STUDY: CT CHEST, ABDOMEN T PELVIS WITH CONTRAST REASON FOR EXAM: Female, 72 years old. F/U LYMPHOMA IV CONTRAST ONLY RADIATION DOSAGE (If Supplied By Facility): CTDIvol = ( 18.68 ) mGy, DLP = ( 1101.57 ) mGycm TECHNIQUE: Transaxial imaging was performed following intravenous administration of IV 100mL Isovue-370. Individualized dose optimization techniques were used for this CT. COMPARISON: Comparison is made with prior study January 27, 2023. FINDINGS: CHEST A right-sided portacatheter is seen with the tip in the superior vena cava. The lungs are normal. There is no demonstrated pleural abnormality. Normal heart and pericardium. Normal mediastinum. Normal hilar regions. Normal unenhanced pulmonary arteries. Normal aorta arch and descending thoracic aorta. There are multi-level degenerative changes of the thoracic spine. Small hiatal hernia. Fatty infiltration of the liver. ABDOMEN There is decreased attenuation of the liver consistent with steatosis. There are surgical clips in the gallbladder fossa consistent with a prior cholecystectomy. Normal spleen. Normal pancreas. Normal bilateral adrenal glands. Normal right kidney. Normal left kidney. There is a small hiatal hernia. Normal small intestine. There are multiple colonic diverticula consistent with diverticulosis. There is non-visualization of the appendix. There is diffuse atherosclerotic calcification of the abdominal aorta, without a demonstrated aneurysm. Normal inferior vena cava. Normal retroperitoneum. There is a small umbilical hernia containing fat. PELVIS Normal urinary bladder. The patient is status post hysterectomy. Normal visualized small intestine. Normal visualized colon. There is no pelvic fluid. There is no pelvic lymphadenopathy or mass lesion. Normal visualized pelvic arteries. Normal abdominal wall. There are mild degenerative changes of the visualized lumbar spine. CT/CT Chest, Abd, Pel w/Contrast IMPRESSION: Stable examination. No acute abnormality is seen. Electronically Signed: Shabbir Hunter MD at 13:50 EST ,
--- OUTSIDE RECORDS SUMMARY | 2023-07-21 07:52 | XMS RPT_ITS | CCD ---
Author Name Unknown Address [address] [facility] [address] [place] [address] Organization [facility] Care Team Providers Care Craft Center Director Name Role Phone Aiyana Danielle Unavailable Dio [...] sources) Azithromycin; Translations: [azithromycin] Drug Allergy Swelling [facility] Work Phone: (2 sources) cefdinir; Translations: [cefdinir] Drug Allergy Pharyngeal swelling (finding) [facility] Work Phone: (2 sources) fluvastatin; Translations: [fluvastatin] Drug Allergy Muscle pain (finding) [facility] Work Phone: (2 sources) Ofloxacin; Translations: [ofloxacin] Drug Allergy Pharyngeal swelling (finding) [facility] Work Phone: (2 sources) Penicillin; Translations: [penicillins] Drug Allergy Pharyngeal swelling (finding) [facility] Work Phone: (2 sources) Pravastatin; Translations: [pravastatin] Drug Allergy Muscle pain (finding) [facility] Work Phone: (2 sources) rosuvastatin; Translations: [rosuvastatin] Drug Allergy Muscle pain (finding) [facility] Work Phone: (2 sources) Sulfonamides (Antibiotic); Translations: [sulfa drugs] Drug allergy Swelling [facility] Work Phone: (2 sources) Tetracycline; Translations: [tetracycline] Drug Allergy Rash [facility] Work Phone: Medications Current Medications Medication Drug [...] 100 MG TABS as directed AMITRIPTYLINE HCL [id number] Emelyn Aranda biotin 5 mg oral capsule (5 sources) Start: 07-22-2016 BIOTIN 5000 5 MG CAPS BIOTIN [id number] Rk Pierce Problems Active Problems Problem Classification [...] Mass Index) 31.28 kg/m2 Dio Espinoza LPN [facility] Work Phone: 07-22-2016 08:32-0500 Body weight 85.28 kg Aiyana Danielle [facility] Work Phone: 07-22-2016 08:32-0500 Height 165.1 cm Dio Espinoza LPN [facility] Work Phone: 07-22-2016 08:32-0500 Weight 85.28 kg Dio Espinoza LPN [facility] Work Phone: Encounters Encounter Date Encounter Type Care Provider Facility Start: 06-05-2021 End: 06-05-[address] DUY CARCAMO DO [facility] Start: 05-15-2021 End: 05-15-[address] DUY CARCAMO DO [facility] Start: 01-26-2021 ambulatory DUY CARCAMO Facility [facility] Start: 12-29-2020 ambulatory TAMY Nicholas lity:[facility] Start: 04-24-2018 Patient encounter procedure Teo Harkins Facility:[id number] Start: 04-23-2018 Patient encounter procedure Idalia Perfecto Facility:[id number] Start: 05-05-2000 End: 05-05-2000 Patient encounter procedure Abena Kelly Work Phone: [facility] Start: 05-05-2000 Results Only A Eben rm Work Phone: [facility] Procedures Date Procedure Procedure Detail Performing Clinician [...] neck spine w/o dye MRI Cervical Spine [facility] Work Phone: Start: 07-29-2016 End: 08-07-2016 Creatine kinase (CK) *Creatine Kinase (CK) [facility] Work Phone: Start: 07-22-2016 End: 08-07-2016 Ct angiography, head CTA Head/Brain [facility] Work Phone: Start: 07-22-2016 End: 08-07-2016 Ct angiography, neck CTA Neck [facility] Work Phone: Payers Date Payer Category Payer Unknown [id number] 2015 Medicare [id number] 1950 Unknown [id number] 08.01. [id number] 1950 Unknown [id number] 1950 Unknown [id number] .. [id number] 1950 Unknown [id number] Social History Date Type Detail Facility Tobacco smoking status HIIS Unknown if ev er smoked [facility] Sex Assigned At Not on file [facility] Never smoked tob acco (finding) [facility] [place] Sex Assigned At [facility] Evaluation + Plan note Radiology Note Date & Type Note Facility Evaluation + Plan note Future Appointments Appointment Date:06/05/2021 08:30:00 AM Scheduled Provider: Location:[facility] Appointment Type:MA Mammogram Screening Bilateral w/ Jose Future Scheduled TestsMA Mammo Screening Bilateral w/ Jose 06/05/21 [facility] Hospital course Narrative Note Date & Type Note Facility Hospital course Narrative No data available for this section [facility] Hospital Discharge instructions Note Date & Type Note Facility Hospital Discharge instructions No data available for this section [facility] Summary Purpose Family History No Family History Records FoundNo Family History Records FoundNo Family History Records FoundNo Family History Records Found Advance Directives No Advanced Directives Records FoundNo Advanced Directives Records FoundNo Advanced Directives Records FoundNo Advanced Directives Records Found Additional Source Comments INFORMATION SOURCE (unrecogn ized section and content) DATE CREATED AUTHOR AUTHOR'S ORGANIZ ATION 05/25/2018 [facility] DATE CREATED AUTHOR AUTHOR'S ORGANIZ ATION 06/14/2021 [facility] ([place]) DATE CREATED AUTHOR AUTHOR'S ORGANIZ ATION 08/06/2021 [facility] Source Comments (unrecognize d section and content) In the event this informatio n is protected by the Federal Confidentiality of Alcohol and Drug Abuse Patient Records regulations: The Federal rules restrict any use of the information to criminally investigate or prosecute any alcohol or drug abuse patient.[facility] FOR RECORDS PERTAINING TO PATIENTS WHO [...] BE BASED ON THE PRIMARY CLINICAL RECORDS. [facility] [employer] [facility]. provides no warranty or guarantee of the accuracy or completeness of information in this document.
[2023-07-21 08:14] LABS: CREATININE FINGERSTICK < 1.0 mg/dL (0.55-1.02); EGFR FINGERSTICK > 60.0000 mL/min (>60)
== END | disposition home or self-care (01) ==
LOC: CT 07:42
PROVIDERS: PCP Internal Medicine; Referring Provider Internal Medicine Hematology & Oncology; Visit Provider Internal Medicine Hematology & Oncology
DX: C83.10 Mantle cell lymphoma, unspecified site (principal)
CPT/HCPCS: 70491; 71260; 74177; Q9967; A4216

== ENCOUNTER → 2023-07-25 | Outpatient (CLI) | payer MEDICARE, OTHER, SELFPAY ==
--- OUTSIDE RECORDS SUMMARY | 2023-07-25 08:58 | XMS RPT_ITS | CCD ---
Author Name Unknown Address [address] [facility] [address] [place] [address] Organization [facility] Care Team Providers Care Salvage Winder Name Role Phone Aiyana Danielle Unavailable Dio Espinoza LPN Unavailable UnavailIdalia Vargas Unavailable Unavailable Duy Carcamo Unavailable Unavailable Duy Carcamo Unavailable Unavailable Teo Harkins Unavailable Unavaila Duy Chan Unavailable Unavailable Duy Carcamo Primary Care Provider [phone] DUY CARCAMO DO Primary Care Physician TAMY OSMAN Attending Unavailable YAMILKA OCASIO Referring Unavailable DUY CARCAMO Primary Care Unavailable DUY CARCAMO Primary Care Unavailable TAMY OSMAN Attending Unavailable DUY CARCAMO Referring Unavailable Allergies Allergy Classification Reported Allergen(s) Allergy Type Date of Onset Reaction(s) Facility (2 sources) Azithromycin; Translations: [azithromycin] Drug Allergy Swelling [facility] Work Phone: (2 sources) cefdinir; Translations: [cefdinir] Drug Allergy Pharyngeal swelling (finding) [facility] Work Phone: (2 sources) fluvastatin; Translations: [fluvastatin] Drug Allergy Muscle pain (finding) [facility] Work Phone: (2 sources) Ofloxacin; Translations: [ofloxacin] Drug Allergy Pharyngeal swelling (finding) [facility] Work Phone: (2 sources) Penicillin; Translations: [penicillins] Drug Allergy Pharyngeal swelling (finding) [facility] Work Phone: (2 sources) Pravastatin; Translations: [pravastatin] Drug Allergy Muscle pain (finding) [facility] Work Phone: (2 sources) rosuvastatin; Translations: [rosuvastatin] Drug Allergy Muscle pain (finding) [facility] Work Phone: (2 sources) Sulfonamides (Antibiotic); Translations: [sulfa drugs] Drug allergy Swelling [facility] Work Phone: (2 sources) Tetracycline; Translations: [tetracycline] Drug Allergy Rash [facility] Work Phone: Medications Current Medications Medication Drug [...] 100 MG TABS as directed AMITRIPTYLINE HCL [id number] Emelyn Aranda biotin 5 mg oral capsule (5 sources) Start: 07-22-2016 BIOTIN 5000 5 MG CAPS BIOTIN [id number] Rk Pierce Problems Active Problems Problem Classification [...] Mass Index) 31.28 kg/m2 Dio Espinoza LPN [facility] Work Phone: 07-22-2016 08:32-0500 Body weight 85.28 kg Aiyana Danielle [facility] Work Phone: 07-22-2016 08:32-0500 Height 165.1 cm Dio Espinoza LPN [facility] Work Phone: 07-22-2016 08:32-0500 Weight 85.28 kg Dio Espinoza LPN [facility] Work Phone: Encounters Encounter Date Encounter Type Care Provider Facility Start: 06-05-2021 End: 06-05-[address] DUY CARCAMO DO [facility] Start: 05-15-2021 End: 05-15-[address] DUY CARCAMO DO [facility] Start: 01-26-2021 ambulatory DUY CARCAMO Facility :[facility] Start: 12-29-2020 ambulatory TAMY Nicholas lity:[facility] Start: 04-24-2018 Patient encounter procedure Teo Harkins Facility:[id number] Start: 04-23-2018 Patient encounter procedure Idalia Perfecto Facility:[id number] Start: 05-05-2000 End: 05-05-2000 Patient encounter procedure Abena Kelly Work Phone: [facility] Start: 05-05-2000 Results Only A Eben rm [...] neck spine w/o dye MRI Cervical Spine [facility] Work Phone: Start: 07-29-2016 End: 08-07-2016 Creatine kinase (CK) *Creatine Kinase (CK) [facility] Work Phone: Start: 07-22-2016 End: 08-07-2016 Ct angiography, head CTA Head/Brain [facility] Work Phone: Start: 07-22-2016 End: 08-07-2016 Ct angiography, neck CTA Neck [facility] Work Phone: Payers Date Payer Category Payer Unknown [id number] 2015 Medicare [id number] 1950 Unknown [id number] 08.01. [id number] 1950 Unknown [id number] 1950 Unknown [id number] .. [id number] 1950 Unknown [id number] Social History Date Type Detail Facility Tobacco smoking status OKIS Unknown if ev er smoked [facility] Sex Assigned At Not on file [facility] Never smoked tob acco (finding) [facility] [place] Sex Assigned At [facility] Evaluation + Plan note Radiology Note Date & Type Note Facility Evaluation + Plan note Future Appointments Appointment Date:06/05/2021 08:30:00 AM Scheduled Provider: Location:[facility] Appointment Type:MA Mammogram Screening Bilateral w/ Jose Future Scheduled TestsMA Mammo Screening Bilateral w/ Jose 06/05/21 [facility] Hospital course Narrative Note Date & Type Note Facility Hospital course Narrative No data available for this section [facility] Hospital Discharge instructions Note Date & Type Note Facility Hospital Discharge instructions No data available for this section [facility] Summary Purpose Family History No Family History Records FoundNo Family History Records FoundNo Family History Records FoundNo Family History Records Found Advance Directives No Advanced Directives Records FoundNo Advanced Directives Records FoundNo Advanced Directives Records FoundNo Advanced Directives Records Found Additional Source Comments INFORMATION SOURCE (unrecogn ized section and content) DATE CREATED AUTHOR AUTHOR'S ORGANIZ ATION 05/25/2018 [facility] DATE CREATED AUTHOR AUTHOR'S ORGANIZ ATION 06/14/2021 [facility] ([place]) DATE CREATED AUTHOR AUTHOR'S ORGANIZ ATION 08/06/2021 [facility] Source Comments (unrecognize d section and content) In the event this informatio n is protected by the Federal Confidentiality of Alcohol and Drug Abuse Patient Records regulations: The Federal rules restrict any use of the information to criminally investigate or prosecute any alcohol or drug abuse patient.[facility] FOR RECORDS PERTAINING TO PATIENTS WHO ARE [...] BE BASED ON THE PRIMARY CLINICAL RECORDS. [facility] [employer] [facility]. provides no warranty or guarantee of the accuracy or completeness of information in this document.
[2023-07-25 14:50] LABS: Cholesterol 204 mg/dL (200); High Density Lipoprotein 56 mg/dL; Triglycerides 189 mg/dL; Very Low Density Lipoprotein 38 mg/dL (5-40)
== END | disposition home or self-care (01) ==
LOC: BIMLAB 08:45
PROVIDERS: PCP Internal Medicine; Referring Provider Internal Medicine; Visit Provider Internal Medicine
DX: E78.5 Hyperlipidemia, unspecified (principal)
CPT/HCPCS: 36415; 80061

== ENCOUNTER → 2023-08-20 | Outpatient (CLI) | payer MEDICARE, OTHER, SELFPAY ==
--- NOTE | 2023-08-20 08:21 | BD_ITS ---
STUDY: DUAL ENERGY X-RAY ABSORPTIOMETRY / DXA REASON FOR EXAM: Female, 72 years old. Post menopausal TECHNIQUE: Bone Mineral Density (BMD) measurements of lumbar spine and bilateral hips were obtained. COMPARISON: None. FINDINGS: Lumbar Spine (L1-L4): g/cm2 (1.096) / T-score (0.5) / Z-score (2.8) Findings are suggestive of normal bone density with a low fracture risk. Left Femur Total: g/cm2 (0.941) / T-score (0.0) / Z-score (1.6) Left Femoral Neck: g/cm2 (0.741) / T-score (-1.0) / Z-score (1.0) Right Femur Total: g/cm2 (0.952) / T-score (0.1) / Z-score (1.7) Right Femoral Neck: g/cm2 (0.938) / T-score (0.8) / Z-score (2.8) BD/Dexa Bone Density Study IMPRESSION: The patient is considered normal as outlined below according to World Dariusz Organization (WHO) criteria with a low fracture risk. Reference Information: The T-score is the number of standard deviations above or below the standard which is normal for young adults at their peak bone mineral density. The World Health Organization (WHO) interprets the T-scores as follows: Above -1 Normal bone density Between -1 and -2.5 Osteopenia Equal to / or below -2.5 Osteoporosis As a practical clinical guideline, osteopenia may be graded as follows: Mild -1 through -1.5 Moderate -1.6 through -2.0 Severe -2.1 through -2.4 The Z-score is the number of standard deviations above or below age-matched controls. A Z-score of less than -1.5 would be considered abnormal. References: 1. NIH Osteoporosis and Related Bone Diseases www osteo.org 2. International Society for Clinical Densitometry www iscd.org 3. National Osteoporosis Foundation www nof.org Electronically Signed: Shabbir Hunter MD at 14:40 EDT ,
--- OUTSIDE RECORDS SUMMARY | 2023-08-20 08:42 | XMS RPT_ITS | CCD ---
Author Name Unknown Address [id number] [facility] [facility] [address] [place] [address] Organization [facility] Care Team Providers Care Induction Coordination Power Engineer Name Role Phone Aiyana Danielle Unavailable Dio [...] sources) Azithromycin; Translations: [azithromycin] Drug Allergy Swelling [facility] Work Phone: (2 sources) cefdinir; Translations: [cefdinir] Drug Allergy Pharyngeal swelling (finding) [facility] Work Phone: (2 sources) fluvastatin; Translations: [fluvastatin] Drug Allergy Muscle pain (finding) [facility] Work Phone: (2 sources) Ofloxacin; Translations: [ofloxacin] Drug Allergy Pharyngeal swelling (finding) [facility] Work Phone: (2 sources) Penicillin; Translations: [penicillins] Drug Allergy Pharyngeal swelling (finding) [facility] Work Phone: (2 sources) Pravastatin; Translations: [pravastatin] Drug Allergy Muscle pain (finding) [facility] Work Phone: (2 sources) rosuvastatin; Translations: [rosuvastatin] Drug Allergy Muscle pain (finding) [facility] Work Phone: (2 sources) Sulfonamides (Antibiotic); Translations: [sulfa drugs] Drug allergy Swelling [facility] Work Phone: (2 sources) Tetracycline; Translations: [tetracycline] Drug Allergy Rash [facility] Work Phone: Medications Current Medications Medication [...] 100 MG TABS as directed AMITRIPTYLINE HCL [id number] Emelyn Aranda biotin 5 mg oral capsule (5 sources) Start: 07-22-2016 BIOTIN 5000 5 MG CAPS BIOTIN [id number] Rk Pierce Problems Active Problems Problem Classification [...] Mass Index) 31.28 kg/m2 Dio Espinoza LPN [facility] Work Phone: 07-22-2016 08:32-0500 Body weight 85.28 kg Aiyana Danielle [facility] Work Phone: 07-22-2016 08:32-0500 Height 165.1 cm Dio Espinoza LPN [facility] Work Phone: 07-22-2016 08:32-0500 Weight 85.28 kg Dio Espinoza LPN [facility] Work Phone: Encounters Encounter Date Encounter Type Care Provider Facility Start: 06-05-2021 End: 06-05-[address] DUY CARCAMO DO [facility] Start: 05-15-2021 End: 05-15-[address] DUY CARCAMO DO [facility] Start: 01-26-2021 ambulatory DUY CARCAMO Facility :[facility] Start: 12-29-2020 ambulatory TAMY Nicholas lity:[facility] Start: 04-24-2018 Patient encounter procedure Teo Harkins Facility:[id number] Start: 04-23-2018 Patient encounter procedure Idalia Perfecto Facility:[id number] Start: 05-05-2000 End: 05-05-2000 Patient encounter procedure Abena Kelly Work Phone: [facility] Start: 05-05-2000 Results Only A Eben rm Work Phone: [facility] Procedures Date Procedure Procedure Detail Performing Clinician [...] neck spine w/o dye MRI Cervical Spine [facility] Work Phone: Start: 07-29-2016 End: 08-07-2016 Creatine kinase (CK) *Creatine Kinase (CK) [facility] Work Phone: Start: 07-22-2016 End: 08-07-2016 Ct angiography, head CTA Head/Brain [facility] Work Phone: Start: 07-22-2016 End: 08-07-2016 Ct angiography, neck CTA Neck [facility] Work Phone: Payers Date Payer Category Payer Unknown [id number] 2015 Medicare [id number] 1950 Unknown [id number] [id number] 1950 Unknown [id number] 1950 Unknown [id number] .. [id number] 1950 Unknown [id number] Social History Date Type Detail Facility Tobacco smoking status RIIS Unknown if ev er smoked [facility] Sex Assigned At Not on file [facility] Never smoked tob acco (finding) [facility] [place] Sex Assigned At [facility] Evaluation + Plan note Radiology Note Date & Type Note Facility Evaluation + Plan note Future Appointments Appointment Date:06/05/2021 08:30:00 AM Scheduled Provider: Location:[facility] Appointment Type:[facility] Mammogram Screening Bilateral w/ Jose Future Scheduled TestsMA Mammo Screening Bilateral w/ Jose 06/05/21 [facility] Hospital course Narrative Note Date & Type Note Facility Hospital course Narrative No data available for this section [facility] Hospital Discharge instructions Note Date & Type Note Facility Hospital Discharge instructions No data available for this section [facility] Summary Purpose Family History No Family History Records FoundNo Family History Records FoundNo Family History Records FoundNo Family History Records Found Advance Directives No Advanced Directives Records FoundNo Advanced Directives Records FoundNo Advanced Directives Records FoundNo Advanced Directives Records Found Additional Source Comments INFORMATION SOURCE (unrecogn ized section and content) DATE CREATED AUTHOR AUTHOR'S ORGANIZ ATION 05/25/2018 [facility] DATE CREATED AUTHOR AUTHOR'S ORGANIZ ATION 06/14/2021 [facility] ([place]) DATE CREATED AUTHOR AUTHOR'S ORGANIZ ATION 08/06/2021 [facility] Source Comments (unrecognize d section and content) In the event this informatio n is protected by the Federal Confidentiality of Alcohol and Drug Abuse Patient Records regulations: The Federal rules restrict any use of the information to criminally investigate or prosecute any alcohol or drug abuse patient.[facility] FOR RECORDS PERTAINING TO PATIENTS WHO [...] RECORDS. [facility] [employer] [facility]. provides no warranty or guarantee of the accuracy or completeness of information in this document.
== END | disposition home or self-care (01) ==
LOC: OPBD 08:15
PROVIDERS: PCP Internal Medicine; Referring Provider Internal Medicine; Visit Provider Internal Medicine
DX: Z78.0 Asymptomatic menopausal state (principal)
CPT/HCPCS: 77080

== ENCOUNTER → 2024-01-19 | Outpatient (CLI) | payer MEDICARE, OTHER, SELFPAY ==
--- NOTE | 2024-01-19 08:00 | CT_ITS ---
STUDY: CT CHEST, ABDOMEN T PELVIS WITH CONTRAST REASON FOR EXAM: Female, 73 years old. Lymphoma RADIATION DOSAGE (If Supplied By Facility): CTDIvol = ( 13.00 ) mGy, DLP = ( 1743.42 ) mGycm TECHNIQUE: Transaxial imaging was performed following intravenous administration of IV 100mL Isovue-300. Multiplanar coronal and sagittal images were reformatted. Individualized dose optimization techniques were used for this CT. COMPARISON: Prior study dated: 07/21/2023 FINDINGS: The study is limited by patient motion and by streak artifact due to the patient''s arms being at her sides. There is a right-sided port with its tip in the superior vena cava. LUNGS: There are no pulmonary infiltrates. There are no pulmonary nodules or masses. PLEURAL SPACE: There are no pleural effusions. There is no pneumothorax. MEDIASTINUM: The heart and pericardium are within normal limits. There is no pneumomediastinum. There is no thoracic lymphadenopathy. THORACIC VESSELS: There is no evidence of thoracic aortic aneurysm. GALLBLADDER / BILE DUCTS: The patient is status post cholecystectomy. There is no intrahepatic biliary duct dilatation. The common bile duct is normal in caliber. There are no calcified ductal stones. LIVER: The liver is within normal limits. There are no suspicious hepatic lesions. SPLEEN: The spleen is normal in size. PANCREAS: The pancreas is within normal limits. ADRENAL GLANDS: The adrenal glands are within normal limits. KIDNEYS / BLADDER: There are no renal or ureteral stones. There is no hydronephrosis. There are no focal renal lesions. The urinary bladder is partially distended and appears grossly unremarkable. STOMACH / BOWEL: Normal visualized stomach. There is no bowel obstruction or inflammation. The appendix is not visualized, but there are no findings to suggest acute appendicitis. PERITONEUM/RETROPERITONEUM: There is no abdominal or pelvic free air, free fluid or fluid collection. There is no abnormal soft tissue mass identified. There is no abdominal or pelvic lymphadenopathy. VESSELS: There are stable atherosclerotic calcifications noted in the aorta and its branches. The aorta is normal in caliber. The IVC is unremarkable. BONES: There are no destructive osseous lesions. SOFT TISSUES: The visualized soft tissues are within normal limits. CT/CT Chest, Abd, Pel w/Contrast IMPRESSION: No acute chest, abdominal or pelvic pathology. No lymphadenopathy. Electronically Signed: Tan Graham MD at 10:13 EDT ,
--- NOTE | 2024-01-19 08:00 | CT_ITS ---
INDICATION: F/U LYMPHOMA IV CONTRAST ONLY EXAMINATION: CT NECK WITH CONTRAST - CT Maxillofacial and Neck W/ Contrast Injection COMPARISON: Neck CT 07/21/2023. RADIATION DOSAGE (If Supplied By Facility): CTDIvol/DLP = ( 13.00 ) / ( 1743.42 ) mGy/mGycm Findings: Contrast enhanced serial CT axial images through the orbits, extending through the face and neck with coronal and sagittal reformatted series. IV Contrast dosage and agent: 100 cc Isovue-300 IV. SKULL BASE: Visualized brain parenchyma is unremarkable. ORBITS: No obvious acute globe abnormality. No infiltration the orbital fat. SOFT TISSUES: No prevertebral soft tissue thickening. Airway is unremarkable. Right chest port catheter tip terminates beyond the mid superior vena cava. No obvious vascular abnormality. No focal fluid collection, mass, or adenopathy. No infiltration of the deep fat planes of the face or neck. No thickening of the epiglottis or aryepiglottic folds. Lung apices are unremarkable. OSSEOUS STRUCTURES: No TMJ subluxation. Moderate to severe multilevel bilateral neuroforaminal narrowing. No evidence of cervical spine fracture or subluxation. No concerning bony lesion or abnormal sclerosis to suggest lesion. DISCS/JOINTS: No significant degenerative change. CT/Soft Tissue Neck WITH Contrast IMPRESSION: No mass or adenopathy. Neuroforaminal narrowing. Electronically Signed: David Vazquez MD at 5:32 EDT ,
[2024-01-19 08:20] LABS: CREATININE FINGERSTICK < 1.0 mg/dL (0.55-1.02); EGFR FINGERSTICK > 60.0000 mL/min (>60)
== END | disposition home or self-care (01) ==
LOC: CT 07:49
PROVIDERS: PCP Internal Medicine; Referring Provider Internal Medicine Hematology & Oncology; Visit Provider Internal Medicine Hematology & Oncology
DX: C83.10 Mantle cell lymphoma, unspecified site (principal)
CPT/HCPCS: 70491; 71260; 74177; Q9967

== ENCOUNTER 2024-04-01 20:35 | Emergency (ER) | payer MEDICARE, OTHER, SELFPAY ==
[2024-04-01 20:37] VITALS: BP 178/86; PULSE 106; RESP 16; TEMP 36.4; O2SAT 100; BMI 32.8
[2024-04-01 21:49] LABS: Bacteria 0 SEEN /hpf (None Seen); Mucous, Urine 0 SEEN /hpf (<or=2+); Red Blood Cells-Urine 0 SEEN /hpf (0-5); Squamous Epithelial Cells - UA 0 SEEN /hpf (5-10)
[2024-04-01 21:51] LABS: Color, Urine Yellow (Yellow); Glucose, Dipstick Normal (Normal); Ketone-Dipstick Negative (Negative); Leukocyte Esterase-Dipstick 100 /ul (Negative); Nitrite-Dipstick Negative (Negative); Occult Blood-Urine 25 /ul (Negative); Protein-Dipstick 15 mg/dl (Negative); Specific Gravity, Urine 1.015 (1.002-1.030); Urine Bilirubin Dipstick Negative (Negative); Urine Clarity Sl. Cloudy (Clear); Urine Urobilinogen Normal (Normal)
[2024-04-01 22:06] LABS: Absolute Lymphocyte Count 1.03 X10^3/uL (0.83-4.51); Absolute Neutrophil Count 8.5 X10^3/uL (2.0-7.7); Basophil# 0.08 X10^3/uL; Basophil% 0.7 % (0-1); Eosinophil# 0.11 X10^3/uL; Hematocrit 42.3 % (37-47); Hemoglobin 14.1 g/dL (12.0-15.0); Lymphocyte # 1.03 X10^3/ul (0.83-4.51); Lymphocyte % 9.6 % (19-41); Mean Corp Hgb Conc 33.3 g/dL (32-36); Mean Platelet Vol. 8.7 fl (6.2-12.0); Monocyte# 0.95 X10^3/uL; Monocyte% 8.8 % (0-10); NRBC Flagged by Analyzer 0 % (0-5); Neutrophil # 8.54 X10^3/uL (2.7-7.7); Neutrophil % 79.4 % (47-70); Platelet Count 249 K/mm3 (150-450); RBC Distribution Width CV 13.8 % (11.6-14.6); RBC Distribution Width SD 43.1 fl (35.1-43.9); Red Blood Count 4.86 M/mm3 (4.2-5.4); White Blood Count 10.8 K/mm3 (4.4-11.0)
[2024-04-01 22:08] LABS: Renal Epithelial Cells 0-5 SEEN /hpf (0-5); White Blood Cells 0-5 SEEN /hpf (0-5)
--- NOTE | 2024-04-01 22:11 | CT_ITS ---
EXAM: CT ABDOMEN AND PELVIS WITHOUT INTRAVENOUS CONTRAST CLINICAL INDICATION: left flank pain/kidney stone TECHNIQUE: Helically acquired images were obtained of the abdomen and pelvis without intravenous contrast. This CT exam was performed using one or more of the following dose reduction techniques: automated exposure control, adjustment of the mA and/or kV according to patient size, and/or use of iterative reconstruction technique. COMPARISON: CT chest, abdomen, pelvis dated ; CT abdomen pelvis, 07/21/2023. FINDINGS: LOWER THORAX: Coronary artery calcifications and/or stents. Lung bases are clear. No cardiomegaly. No significant pericardial effusion. ABDOMEN: LIVER: No significant abnormality. Homogeneous. GALLBLADDER AND BILE DUCTS: Status post cholecystectomy. No intra- or extrahepatic biliary ductal dilation. PANCREAS: No significant abnormality. No focal cystic mass. SPLEEN: No significant abnormality. Normal size without focal cystic or solid mass. ADRENALS: No significant abnormality. No nodules. KIDNEYS AND URETERS: At the internal aspect of the left ureterovesicular junction, there is a 5 mm stone which is associated with mild to moderate left-sided hydroureteronephrosis. Punctate right lower pole calyceal stone without additional right ureteral stone or hydronephrosis. STOMACH AND BOWEL: Colonic diverticulosis without evidence of acute diverticulitis. No stomach or bowel distention. PELVIS: APPENDIX: No evidence of acute appendicitis. BLADDER: No significant abnormality. REPRODUCTIVE: Status post hysterectomy. ABDOMEN and PELVIS: INTRAPERITONEAL SPACE: No significant abnormality. No ascites or other fluid collection. No free air. BONES/JOINTS: Degenerative changes in the visualized axial and appendicular skeletal structures. No suspicious lytic or blastic abnormality. SOFT TISSUES: No significant abnormality. No discrete abdominal or pelvic wall hernia. VASCULATURE: Atherosclerosis of the aorta and its branch vessels. LYMPH NODES: No significant abnormality. No enlarged lymph nodes. CT/Abdomen/Pelvis without Cont IMPRESSION: 1. At the internal aspect of the left ureterovesicular junction, there is a 5 mm stone which is associated with mild to moderate left-sided hydroureteronephrosis. Punctate right lower pole calyceal stone without additional right ureteral stone or hydronephrosis. 2. Status post cholecystectomy. 3. Status post hysterectomy. 4. Colonic diverticulosis without evidence of acute diverticulitis. Electronically Signed: Bill Pierson DO at 22:32 EDT ,
--- NOTE | 2024-04-01 22:11 | EX.ED.DYSGE1 ---
HPI History of Present Illness Chief Complaint: Flank Pain Informant: patient and spouse/S.O. Narrative Narrative: 73-year-old female presenting to the emergency room with left flank pain and urinary frequency. Patient states that symptoms began this afternoon and have been waxing and waning but constant. She denies any fever no nausea. No bowel symptoms. No history of kidney stones. [facility] Medical History Wart of hand Dermatitis Osteoarthritis of left knee terminal manager current use of anticoagulant Flank pain Post-menopausal Seasonal allergies GERD (gastroesophageal reflux disease) Allergic reaction Post-COVID chronic fatigue Vertigo Health care maintenance Pulmonary embolism Non-Hodgkin lymphoma in remission COVID-19 Headache History of blood clots Back problem Allergies port placement CATARACT SURGERY Squamous cell carcinoma of skin of upper lip Osteoarthritis Mixed hyperlipidemia GERD without esophagitis Occipital neuralgia of left side Right sided sciatica Slow transit constipation Essential hypertension Home Medications ?Medication ?Instructions ?Recorded ?Last Taken ?Type ascorbic acid (vitamin C) 500 mg 500 mg PO DAILY@0800 SUPPLEMENT 03/17/20 05/31/20 History tablet aspirin 81 mg tablet,delayed 81 mg PO QHS HEART HEALTH 03/17/20 05/30/20 History release biotin 2,500 mcg capsule 5,000 mcg PO DAILY SUPPLEMENT 03/17/20 05/31/20 History cholecalciferol (vitamin D3) 25 1,000 unit PO DAILY SUPPLEMENT 03/17/20 05/31/20 History mcg (1,000 unit) tablet elpmkhne-jdwx-vprc 8 mg-folic 400 1 tab PO DAILY SUPPLEMENT 05/31/20 05/31/20 History mcg-K 50 mcg-lutein 300 mcg tablet sodium chloride 0.65 % nasal spray 30 ml NS QHS ALLERGIES 05/31/20 05/30/20 History aerosol clobetasol 0.05 % scalp solution 1 applic topical DAILY PRN Rash 12/06/21 Unknown History meclizine 25 mg tablet 25 mg PO DAILY PRN dizziness #30 05/17/22 Unknown Rx tabs irbesartan 300 mg tablet See Rx Instructions .Route 04/14/23 Unknown Rx .COMPLEX #90 tabs omeprazole 40 mg capsule,delayed See Rx Instructions .Route 05/01/23 Unknown Rx release .COMPLEX #90 caps budesonide 180 mcg/actuation 2 inh inhalation BID 07/25/23 Unknown History breath activated powder inhaler (Pulmicort Flexhaler) fluticasone propionate 50 2 spray intranasal DAILY ALLERGIES 07/25/23 Unknown Rx mcg/actuation nasal 3 months #16 grams spray,suspension Livalo 2 mg tablet (pitavastatin See Rx Instructions .Route 09/02/23 Unknown Rx calcium) .COMPLEX #90 TABLETS apixaban 5 mg tablet (Eliquis) See Rx Instructions .Route 12/08/23 Unknown Rx .COMPLEX #180 tabs montelukast 10 mg tablet See Rx Instructions .Route 01/19/24 Unknown Rx .COMPLEX #90 tabs lidocaine-prilocaine 2.5 %-2.5 % 1 applic topical ONCE PRN port 02/26/24 Unknown Rx topical cream access 30 days #30 grams Allergy/AdvReac Type Severity Reaction Status Date / Time azithromycin Allergy Severe Anaphylaxis Verified 04/01/24 20:38 bromfenac (From BromSite) Allergy Severe Other Verified 04/01/24 20:38 cefdinir Allergy Severe Anaphylaxis Verified 04/01/24 20:38 fluvastatin Allergy Severe bodyaches Verified 04/01/24 20:38 hyoscyamine Allergy Severe Anaphylaxis Verified 04/01/24 20:38 ofloxacin Allergy Severe Anaphylaxis Verified 04/01/24 20:38 Penicillins Allergy Severe Rash Verified 04/01/24 20:38 pravastatin Allergy Severe body aches Verified 04/01/24 20:38 rosuvastatin Allergy Severe bodyaches Verified 04/01/24 20:38 sulfanilamide Allergy Severe Anaphylaxis Verified 04/01/24 20:38 tetracycline Allergy Severe Anaphylaxis Verified 04/01/24 20:38 amlodipine Allergy headache/dizziness/upset Verified 04/01/24 20:38 stomach Sulfa (Sulfonamide Allergy Swelling Verified 04/01/24 20:38 Antibiotics) pantoprazole AdvReac Intermediate Bleeding Verified 04/01/24 20:38 Family History Father CAD (coronary artery disease) Depression Diabetes Heart disease Hypertension High cholesterol Severe allergy CVA (cerebral vascular accident) Mother CAD (coronary artery disease) Asthma Arthritis Osteoporosis Myocardial infarction Grandmother CVA (cerebral vascular accident) Surgical History History of colonoscopy History of cholecystectomy History of arthroscopy of right shoulder Hx of LASIK H/O: hysterectomy H/O arthroscopic knee surgery History of appendectomy (~1964) History of tonsillectomy (~1955) Social History household members: spouse Smoking Status: Never smoker second hand exposure: No alcohol intake: never details: rarely substance use type: does not use what type of physical activity do you participate in: bicycling and yoga frequency: 5-6 times per week seatbelt use: always do you feel safe at home: Yes ROS ROS ED Constitutional Constitutional ED: Denies chills, fever(s) or weight loss Eyes Eyes: Denies change in vision or diplopia ENT ENT ED: Denies ear pain, rhinorrhea or sore throat Cardiovascular Cardiovascular: Denies chest pain, orthopnea, palpitations or racing heartbeat Respiratory/Chest Respiratory/Chest: Denies cough, dyspnea or orthopnea Gastrointestinal Gastrointestinal: Reports abdominal pain; Denies diarrhea, nausea or vomiting Genitourinary Genitourinary ED: Reports urinary frequency; Denies dysuria or hematuria Musculoskeletal Musculoskeletal: Reports back pain and other Details: Left flank pain ; Denies arthralgias or myalgias Integumentary Denies abscess or rash Neurologic Neurologic: Denies headache(s) or weakness Psychiatric Psychiatric: Denies anxiety, depression, suicidal ideation or suicidal thoughts Endocrine Endocrinology: Denies polydipsia, polyphagia or polyuria Allergic/Immunologic Allergic/Immunologic ED: Denies mouth swelling, tongue swelling or urticaria EXAM Physical Exam Const Vital Signs: 04/01/24 20:37 Temperature 97.6 F L Temperature Source Oral Pulse Rate 106 H Respiratory Rate 16 Blood Pressure 178/86 H Blood Pressure Mean 116 Pulse Ox 100 Oxygen Delivery Method Room Air Positive well nourished and well developed General Appearance ED: well developed and NAD HEENT Reports normocephalic, head/scalp atraumatic and moist mucous membranes Eyes PERRL and EOMs intact bilaterally Neck no lymphadenopathy, supple and no JVD Resp normal respiratory effort and clear to auscultation bilaterally Cardio regular rate, regular rhythm and no murmurs GI normal to inspection, nondistended, normoactive bowel sounds and non-tender Palpation: soft Back/Spine normal ROM Back/Spine Narrative: Mild left CVA tenderness Extremity normal to inspection General Extremety ED: Negative for edema General Extremity: Negative for edema Neuro oriented x3 and CN's II-XII intact bilaterally Sensorium / Orientation: alert Motor Exam: strength 5/5 throughout Psych mental status grossly normal Mood & Affect: Negative for depressed or tearful Skin no rashes or lesions noted and no wounds MDM MDM MDM Narrative Medical decision making narrative: Differential diagnosis would include but not limited to malignancy kidney stone diverticulitis diverticular abscess UTI kidney injury sepsis White count 10.8 creatinine is elevated off of baseline currently 1.65 with a BUN of 28. Urinalysis does not show any overt infection CT of the abdomen pelvis demonstrates a distal ureteral stone appears to be at the level of the UVJ. Patient did not wish anything for pain while here. She like to stick with Tylenol if possible. I discussed the above findings with the patient and her . They are comfortable discharge. Return if worsening or concerns follow-up with urology as needed History & Record Review Discussion w/independent historian: Patient and Significant other Lab Data Attestation: I reviewed the patient's lab results. Labs: Laboratory Results - last 24 hr 04/01/24 04/01/24 20:59 21:57 WBC 10.8 RBC 4.86 Hgb 14.1 Hct 42.3 MCV 87.0 MCH 29.0 MCHC 33.3 RDW Std Deviation 43.1 RDW Coeff of Darvin 13.8 Plt Count 249 MPV 8.7 Immature Gran % (Auto) 0.500 Neut % (Auto) 79.4 H Lymph % (Auto) 9.6 L [place] % (Auto) 8.8 Eos % (Auto) 1.0 Baso % (Auto) 0.7 Absolute Neuts (auto) 8.5 H Absolute Lymphs (auto) 1.03 Nucleated RBC % 0 Sodium 140 Potassium 4.4 Chloride 106 Carbon Dioxide 27.0 Anion Gap 7 BUN 28 H Creatinine 1.65 H Estim Creat Clear Calc 31.16 Est GFR (MDRD) Af Amer 39 L Est GFR (MDRD) Non-Af 32 L BUN/Creatinine Ratio 17.0 Glucose 115 H Calcium 10.1 Urine Color Yellow Urine Clarity Sl. Cloudy Urine pH 6.0 Ur Specific [place] 1.015 Urine Protein 15 H Urine Glucose (UA) Normal Urine Ketones Negative Urine Occult Blood 25 H Urine Nitrite Negative Urine Bilirubin Negative Urine Urobilinogen Normal Ur Leukocyte Esterase 100 H Urine RBC 0 SEEN Urine WBC 0-5 SEEN Ur Squamous Epith Cells 0 SEEN Ur Renal Epithelial Cell 0-5 SEEN Urine Bacteria 0 SEEN Urine Mucus 0 SEEN Radiography Diagnostic Testing: Clinical Impression(s) from Imaging Studies Abdomen/Pelvis CT 04/01/24 22:11 IMPRESSION: 1. At the internal aspect of the left ureterovesicular junction, there is a 5 mm stone which is associated with mild to moderate left-sided hydroureteronephrosis. Punctate right lower pole calyceal stone without additional right ureteral stone or hydronephrosis. 2. Status post cholecystectomy. 3. Status post hysterectomy. 4. Colonic diverticulosis without evidence of acute diverticulitis. Electronically Signed: Bill Pierson DO at 22:32 EDT , Discharge Plan Triage Chief Complaint: Flank Pain ED Provider: Jacky Nesbitt Dx/Rx/DC Orders Clinical Impression: Kidney stone on left side, Renal colic on left side, GALEN (acute kidney injury) Instructions: ED Kidney Stone with Pain Prescriptions: No Action clobetasol 0.05 % solution 1 applic topical DAILY PRN (Reason: Rash) meclizine 25 mg tablet 25 mg PO DAILY PRN (Reason: dizziness) Qty: 30 2RF Pulmicort Flexhaler 180 mcg/actuation aerosol powdr breath activated 2 inh inhalation BID Patient Comments: TAKE 2 PUFFS BY MOUTH TWICE A DAY fluticasone propionate 50 mcg/actuation spray,suspension 2 spray intranasal DAILY 90 Days Qty: 16 3RF aspirin 81 MG tablet,delayed release (DR/EC) 81 mg PO QHS ascorbic acid (vitamin C) 500 MG tablet 500 mg PO DAILY@0800 cholecalciferol (vitamin D3) 1,000 UNIT tablet 1,000 unit PO DAILY biotin 2,500 MCG capsule 5,000 mcg PO DAILY sodium chloride 88 ML aerosol,spray 30 ml NS QHS nidiljmr-qdd-lozc-FA-vit K-lut 1 EACH tablet 1 tab PO DAILY irbesartan 300 mg tablet See Rx Instructions .ROUTE .COMPLEX Qty: 90 3RF Dose Instruction: TAKE 1 TABLET BY MOUTH EVERY DAY FOR BLOOD PRESSURE Rx Instructions: TAKE 1 TABLET BY MOUTH EVERY DAY FOR BLOOD PRESSURE omeprazole 40 mg capsule,delayed release(DR/EC) See Rx Instructions .ROUTE .COMPLEX Qty: 90 3RF Dose Instruction: TAKE 1 CAPSULE BY MOUTH EVERY DAY Rx Instructions: TAKE 1 CAPSULE BY MOUTH EVERY DAY pitavastatin calcium [Livalo] 2 mg tablet See Rx Instructions .ROUTE .COMPLEX Qty: 90 1RF Dose Instruction: 2 MG ORALLY EVERY EVENING FOR CHOLESTEROL Rx Instructions: 2 MG ORALLY EVERY EVENING FOR CHOLESTEROL Eliquis 5 mg tablet See Rx Instructions .ROUTE .COMPLEX Qty: 180 2RF Dose Instruction: TAKE 1 TABLET BY MOUTH TWICE A DAY Rx Instructions: TAKE 1 TABLET BY MOUTH TWICE A DAY montelukast 10 mg tablet See Rx Instructions .ROUTE .COMPLEX Qty: 90 3RF Dose Instruction: TAKE 1 TABLET BY MOUTH EVERY DAY Rx Instructions: TAKE 1 TABLET BY MOUTH EVERY DAY lidocaine-prilocaine 2.5-2.5 % cream 1 applic topical ONCE PRN (Reason: port access) 30 Days Qty: 30 2RF Primary Care Provider: Basim Lawson Referrals: Basim Lawson MD [Primary Care Provider] - As Needed Hiram Thornton MD [Med Staff - Active Staff] - As Needed (if needed for Urology) Print Language: Danish Disposition Disposition: Home, Self Care
[2024-04-01 22:21] LABS: Anion Gap 7 (5-15); BUN 28 mg/dL (7-18); Calcium,Total 10.1 mg/dL (8.5-10.1); Chloride 106 mmol/L (98-107); Creatinine, Serum 1.65 mg/dL (0.55-1.02); EST Glomerular Filtration Rate 32 mL/min (>60); Est Glom Filt Rate - Afr Amer 39 mL/min (>60); Estimated Creatinine Clearance 31.16 ml/min; Glucose 115 mg/dL (74-106); Potassium 4.4 mmol/L (3.5-5.1); Sodium Level 140 mmol/L (136-145)
[2024-04-01 23:27] VITALS: BP 158/74; PULSE 90; RESP 16; TEMP 36.4; O2SAT 100
== END 2024-04-01 23:27 | disposition home or self-care (01) ==
PROVIDERS: Emergency Provider Emergency Medicine; PCP Internal Medicine; Visit Provider Emergency Medicine
DX: N13.2 Hydronephrosis with renal and ureteral calculous obstruction (principal); N17.9 Acute kidney failure, unspecified; I10 Essential (primary) hypertension; K21.9 Gastro-esophageal reflux disease without esophagitis; E78.2 Mixed hyperlipidemia; J30.2 Other seasonal allergic rhinitis; M17.11 Unilateral primary osteoarthritis, right knee; Z88.1 Allergy status to other antibiotic agents; Z88.2 Allergy status to sulfonamides; Z88.0 Allergy status to penicillin; Z90.49 Acquired absence of other specified parts of digestive tract; Z79.82 Long term (current) use of aspirin; Z79.01 Long term (current) use of anticoagulants; Z85.72 Personal history of non-Hodgkin lymphomas; Z86.711 Personal history of pulmonary embolism; Z85.828 Personal history of other malignant neoplasm of skin; Z79.899 Other long term (current) drug therapy; Z90.710 Acquired absence of both cervix and uterus
CPT/HCPCS: 74176; 80048; 81001; 85025; 99283; A4216

== ENCOUNTER → 2024-04-08 | Outpatient (CLI) | payer MEDICARE, OTHER, SELFPAY ==
[2024-04-08 12:54] LABS: Anion Gap 10 (5-15); BUN 25 mg/dL (7-18); BUN/Creat Ratio 24.3 RATIO (10-20); Calcium,Total 9.4 mg/dL (8.5-10.1); Chloride 107 mmol/L (98-107); Creatinine, Serum 1.03 mg/dL (0.55-1.02); EST Glomerular Filtration Rate 56 mL/min (>60); Est Glom Filt Rate - Afr Amer 68 mL/min (>60); Glucose 113 mg/dL (74-106); Potassium 4.4 mmol/L (3.5-5.1); Sodium Level 141 mmol/L (136-145)
== END | disposition home or self-care (01) ==
LOC: BIMLAB 08:22
PROVIDERS: PCP Internal Medicine; Referring Provider Nurse Practitioner; Visit Provider Nurse Practitioner
DX: N17.9 Acute kidney failure, unspecified (principal)
CPT/HCPCS: 36415; 80048

== ENCOUNTER → 2024-06-24 | Outpatient (CLI) | payer MEDICARE, OTHER, SELFPAY ==
--- NOTE | 2024-06-24 09:31 | BI_ITS ---
MAMMOGRAPHY - BILATERAL SCREENING REASON FOR EXAM: Female, 73 years old. Routine annual screening examination. PERTINENT HISTORY: Non-contributory. TECHNIQUE: Digital bilateral breast win (3D mammographic acquisition) in the CC and MLO projections. 2-D mediolateral oblique (MLO) and craniocaudad (CC) views of both breasts were obtained. CAD: Full Field Digital Mammography with Computer Added Detection was performed. COMPARISON: Comparison is made with prior study dated June 23, 2023 and June 18, 2022 FINDINGS: Breast Composition: The breasts are heterogeneously dense, which may obscure small masses. There are no dominant masses or suspicious calcifications. Stable small benign-appearing bilateral axillary lymph nodes. No other significant abnormalities are identified. There has been no significant change since the prior study. BI/SCRN MAMM (CAD)W/WIN BILAT IMPRESSION: Stable bilateral screening mammogram. Yearly follow-up mammogram recommended. (A) ASSESSMENT CATEGORY: BIRADS Category 2: Benign. A letter regarding these results will be sent to the patient by the facility within 30 days. Approximately 10% of breast cancers are not detected by mammography. A normal mammogram should not delay biopsy of a clinically suspicious abnormality. [id number] Electronically Signed: Shabbir Hunter MD at 11:04 EST ,
== END | disposition home or self-care (01) ==
LOC: OPBI 09:30
PROVIDERS: PCP Internal Medicine; Referring Provider Internal Medicine; Visit Provider Internal Medicine
DX: Z12.31 Encounter for screening mammogram for malignant neoplasm of breast (principal)
CPT/HCPCS: 77063; 77067

== ENCOUNTER 2024-07-19 07:46 | Outpatient (CLI) | payer MEDICARE, OTHER, SELFPAY ==
--- NOTE | 2024-07-19 07:47 | CT_ITS ---
EXAM: SOFT TISSUE NECK WITH CONTRAST CLINICAL HISTORY: History of non-Hodgkin's lymphoma. COMPARISON: Comparison is made with prior study dated January 19, 2024. TECHNIQUE: Multiple axial tomographic images were obtained following IV contrast administration. Coronal and sagittal reconstruction was obtained as well. FINDINGS: A right-sided port a catheter is seen with the tip in the superior vena cava. No evidence of cervical lymphadenopathy. The salivary glands are unremarkable. The vascular structures are unremarkable as well. There is evidence of degenerative changes of the cervical spine. CT/Soft Tissue Neck WITH Contrast IMPRESSION: No acute abnormality is seen. Stable examination. Reading Location: [facility]
--- NOTE | 2024-07-19 07:47 | CT_ITS ---
PROCEDURE: CT CHEST, ABD, PEL W/CONTRAST REASON FOR EXAM: Follow-up for lymphoma. TECHNIQUE: Chest, abdomen and pelvis CT with intravenous contrast. CONTRAST: 100 mL of Isovue 300. COMPARISON: Comparison is made with prior study dated January 20, 2024. FINDINGS: CT CHEST: Hardware: A right-sided port a catheter is seen with the tip in the superior vena cava. Lymph nodes: No mediastinal hilar or axillary lymphadenopathy. Heart and Vasculature: Normal heart size. No pericardial effusion. Thoracic aorta and pulmonary arteries are unremarkable. Mild coronary artery calcification. Lungs and Airways: Minimal linear scarring at the lung bases. Pleura: No pleural effusion. No pneumothorax. Bones: Degenerative changes of the thoracic spine. CT ABDOMEN/PELVIS: Liver: Diffuse fatty infiltration. Gallbladder: Surgically absent. Spleen: Unremarkable. Pancreas: Unremarkable. Adrenals: Unremarkable. Kidneys: Unremarkable. Bladder: Unremarkable. Reproductive Organs: Prior hysterectomy. Adnexal regions are unremarkable. Bowel: Colonic diverticulosis without diverticulitis. Appendix: Normal. Lymph nodes: No suspicious lymph node enlargement. Vasculature: Major vascular structures are unremarkable. Peritoneum / Retroperitoneum: No ascites. No free air. Bones: Degenerative changes of the spine. CT/CT Chest, Abd, Pel w/Contrast IMPRESSION: Stable examination. One or more dose reduction techniques were used (e.g., Automated exposure contr ol, adjustment of the mA and/or kV according to patient size, use of iterative reconstruction technique). Reading Location: [id number]
== END 2024-07-19 23:59 | disposition home or self-care (01) ==
LOC: CT 07:46
PROVIDERS: PCP Internal Medicine; Referring Provider Internal Medicine Hematology & Oncology; Visit Provider Internal Medicine Hematology & Oncology
DX: C83.17 Mantle cell lymphoma, spleen (principal); E78.5 Hyperlipidemia, unspecified
CPT/HCPCS: 36591; 70491; 71260; 74177; 80053; 80061; 83615; 85025; Q9967; A4216

== ENCOUNTER → 2024-12-02 | Outpatient (CLI) | payer MEDICARE, OTHER, SELFPAY ==
[2024-12-02 16:51] LABS: Color, Urine Yellow (Yellow); Glucose, Dipstick Normal (Normal); Ketone-Dipstick Negative (Negative); Leukocyte Esterase-Dipstick 25 /ul (Negative); Nitrite-Dipstick Negative (Negative); Occult Blood-Urine 10 /ul (Negative); Protein-Dipstick Negative (Negative); Specific Gravity, Urine 1.015 (1.002-1.030); Urine Bilirubin Dipstick Negative (Negative); Urine Clarity Clear (Clear); Urine Urobilinogen Normal (Normal)
== END | disposition home or self-care (01) ==
LOC: LABSPEC 16:14
PROVIDERS: PCP Internal Medicine; Referring Provider Physician Assistant; Visit Provider Physician Assistant
DX: R39.15 Urgency of urination (principal)
CPT/HCPCS: 81002; 87086

== ENCOUNTER 2025-01-17 07:44 | Outpatient (CLI) | payer MEDICARE, OTHER, SELFPAY ==
--- NOTE | 2025-01-17 07:46 | CT_ITS ---
PROCEDURE: CT CHEST, ABD, PEL W/CONTRAST 01/17/2025 REASON FOR EXAM: F/U NHL IV CONTRAST ONLY Six-month follow-up. Hypertension. TECHNIQUE: Chest, abdomen and pelvis CT with intravenous contrast. Coronal and Sagittal reconstruction series were provided. One or more dose reduction techniques were used (e.g., Automated exposure control, adjustment of the mA and/or kV according to patient size, use of iterative reconstruction technique. PATIENT PREPARATION: Per protocol ORAL CONTRAST TYPE: None. CONTRAST: Isovue-300 VOLUME: 88mL RADIATION DOSE SUMMARY: CTDlvol: 13.5 mGy DLP: 1760.62 mGycm COMPARISON: Prior study dated July 19, 2024. FINDINGS: CT CHEST: Hardware: A right-sided port a catheter is seen with the tip in the superior vena cava. Lymph nodes: Small benign-appearing lymph nodes are seen in the axillary regions bilaterally as well as in the mediastinum. No suspicious lymphadenopathy is seen. Heart and Vasculature: Mild atherosclerotic plaque formation of the aortic arch. The heart is nonenlarged. No significant coronary artery calcification is seen. Lungs and Airways: No pulmonary seen.. Pleura: No pleural effusion. Bones: Degenerative changes of the thoracic spine. Findings suggestive of a small bone island in the right humeral head. CT ABDOMEN/PELVIS: Liver: Unremarkable. Gallbladder: Surgically absent. Spleen: Normal size. No focal lesion is seen. Pancreas: Diffuse fatty atrophy. Adrenals: Unremarkable Kidneys: Small bilateral parapelvic cysts. Bladder: Unremarkable Reproductive Organs: Status post hysterectomy. Bowel: Colonic diverticulosis without diverticulitis. Appendix: Status post appendectomy. Lymph nodes: Unremarkable. Vasculature: Mild diffuse atherosclerotic calcifications are noted. Peritoneum / Retroperitoneum: Unremarkable Bones: Degenerative changes of the spine. CT/CT Chest, Abd, Pel w/Contrast IMPRESSION: Stable examination. No acute abnormality is seen. Reading Location: [id number]
--- NOTE | 2025-01-17 07:46 | CT_ITS ---
PROCEDURE: SOFT TISSUE NECK WITH CONTRAST 01/17/2025 REASON FOR EXAM: F/U NHL Six-month follow-up for history of non-Hodgkin's lymphoma. TECHNIQUE: SOFT TISSUE NECK WITH CONTRAST CONTRAST: Isovue-300 VOLUME: 100 mL One or more dose reduction techniques were used (e.g., Automated exposure control, adjustment of the mA and/or kV according to patient size, use of iterative reconstruction technique). RADIATION DOSE SUMMARY: CTDlvol: 17.78 mGy DLP: 889.28 mGycm COMPARISON: Prior study dated July 19, 2024. FINDINGS: A right-sided port a catheter is seen with the tip in the superior vena cava. Airway: Midline and patent. Salivary glands: Unremarkable Lymph nodes: No significant cervical lymph nodes are seen. Thyroid: Thyroid is unremarkable. No focal lesion is seen. Vasculature: Unremarkable Orbits: Unremarkable Paranasal sinuses and mastoids: Unremarkable Lung apices: Unremarkable Upper mediastinum: Unremarkable Bones: Multilevel degenerative changes of the spine. Other: Unremarkable CT/Soft Tissue Neck WITH Contrast IMPRESSION: No acute abnormality is seen. Stable examination. Reading Location: [id number]
== END 2025-01-17 23:59 | disposition home or self-care (01) ==
LOC: CT 07:45
PROVIDERS: PCP Internal Medicine; Referring Provider Internal Medicine Hematology & Oncology; Visit Provider Internal Medicine Hematology & Oncology
DX: C83.17 Mantle cell lymphoma, spleen (principal); E78.5 Hyperlipidemia, unspecified; E55.9 Vitamin D deficiency, unspecified
CPT/HCPCS: 36591; 70491; 71260; 74177; 80053; 80061; 82306; 83615; 85025; Q9967; A4216